=== PATIENT | male | born 1955 | race Caucasian/White ===

== ENCOUNTER → 2017-02-08 | Outpatient (REF) | payer OTHER | LOC: M SFHCPLAZ 11:27 | PROVIDERS: ATTEND Internal Medicine Infectious Disease | DX: Z53.8 Procedure and treatment not carried out for other reasons (principal) ==

== ENCOUNTER → 2017-03-03 | Outpatient (REF) | payer OTHER | LOC: M LAB REF 16:21 | PROVIDERS: ATTEND Internal Medicine | DX: T84.51XD Infection and inflammatory reaction due to internal right hip prosthesis, subsequent encounter (principal); W27 Contact with nonpowered hand tool; X58.XXXD Exposure to other specified factors, subsequent encounter; Y92.9 Unspecified place or not applicable; Y93.9 Activity, unspecified; Y99.9 Unspecified external cause status ==

== ENCOUNTER → 2017-04-22 | Outpatient (REF) | payer OTHER | LOC: M LAB REF 09:09 | PROVIDERS: ATTEND Physician Assistant | DX: Z11.9 Encounter for screening for infectious and parasitic diseases, unspecified (principal) ==

== ENCOUNTER → 2017-10-13 | Outpatient (REF) | payer OTHER | LOC: M LAB REF 16:29 | PROVIDERS: ATTEND Internal Medicine | DX: T84.52XA Infection and inflammatory reaction due to internal left hip prosthesis, initial encounter (principal); Y92.9 Unspecified place or not applicable; Y93.9 Activity, unspecified ==

== ENCOUNTER → 2017-10-18 | Outpatient (CLI) | payer OTHER ==
--- NOTE | 2017-10-19 01:51 | REP ---
Clinical: Pain with history of osteoarthritis. Technique: Good view of the pelvis with neutral and frog lateral views of the right hip. Findings: The patient is status post bilateral hip replacement. Dystrophic calcifications are identified seemingly bridging the left hip. Enthesopathy along the pelvic rim along with cortical irregularity of the residual proximal right femur noted. No periarticular calcifications involving the right hip identified. No acute fracture dislocation. Impression: Degenerative changes as noted above. Signed by Jeff Milligan MD 10/18/2017 10:43 P
== END ==
LOC: M WUC 13:52
DX: M19.90 Unspecified osteoarthritis, unspecified site (principal)

== ENCOUNTER → 2018-04-11 | Outpatient (REF) | payer OTHER ==
[2018-04-11 18:24] LABS: BASO # 0.1 10^3/uL (0.0-0.2); BASO % 0.6 % (0.0-1.0); EOS # 0.3 10^3/uL (0.0-0.50); HEMATOCRIT 37.8 % (42.0-52.0); IMMATURE GRANULOCYTE % 0.4 % (0-3.0); LYMPH # 1.9 10^3/uL (1.5-4.5); LYMPH % 23.6 % (24.0-44.0); MEAN CORPUSCULAR HEMOGLOBIN 29.1 pg (27.0-33.0); MEAN CORPUSCULAR HGB CONC 31.7 g/dl (32.0-36.5); MEAN CORPUSCULAR VOLUME 91.5 fl (80.0-96.0); MONO # 0.7 10^3/uL (0.0-0.8); MONO % 8.7 % (0.0-5.0); NEUTROPHILS % 62.7 % (36.0-66.0); RED BLOOD COUNT 4.13 10^6/uL (4.30-6.10); RED CELL DISTRIBUTION WIDTH 14.3 % (11.5-14.5)
[2018-04-11 18:41] LABS: PLTBLUE- EDTA FREE CALC 210 K/mm3 (172-450)
[2018-04-11 18:42] LABS: PLTBLUE- EDTA FREE MACHINE 191 10^3/uL (172-450); POS COUNT POS FLAG
== END ==
LOC: M LAB REF 16:56
DX: T84.52XA Infection and inflammatory reaction due to internal left hip prosthesis, initial encounter (principal); W18.30XA Fall on same level, unspecified, initial encounter; Y92.009 Unspecified place in unspecified non-institutional (private) residence as the place of occurrence of the external cause

== ENCOUNTER → 2020-05-16 | Outpatient (CLI) | payer MEDICARE, OTHER ==
[~2020-05-16] VITALS: Ht 175.3 cm; Wt 129.3 kg
[2020-05-16] VITALS (9 sets, daily range): BP systolic 115–158; BP diastolic 53–71
[~2020-05-16] MED LIST: ACETAMINOPHEN TAB 650MG DOSE (2X325MG) PO ONE; AMOX875T PO; ASPI81TA86 PO; BACT800T5 PO; CELE1CAP9 PO; LOSA100T50 PO; METF-839 PO; METF500T13 PO; PRAV40TA2 PO; PRED10TA2 PO; SULF1TAB93 PO; dexameTHASONE 20MG/5ML VIAL (J1100 PER 1MG) IV ONE; diphenhydrAMINE 50MG/ML VIAL (J1200) IV ONE; riTUXimab (INITIAL INFUSION) IV ONE
== END ==
LOC: M INFU 07:07
PROVIDERS: ATTEND Internal Medicine Medical Oncology
DX: L12.1 Cicatricial pemphigoid (principal); H10.89 Other conjunctivitis; D89.89 Other specified disorders involving the immune mechanism, not elsewhere classified
CPT/HCPCS: 96375; 96413; 96415; J1100; J1200; J9312

== ENCOUNTER → 2020-05-23 | Outpatient (CLI) | payer MEDICARE, OTHER ==
[~2020-05-23] VITALS: Ht 177.8 cm; Wt 129.3 kg
[~2020-05-23] MED LIST changes: +NS IV ONE; +RITUXIMAB IV ONE; -riTUXimab (INITIAL INFUSION) IV ONE
[2020-05-23 07:35] VITALS: BP 139/61
[2020-05-23 09:20] VITALS: BP 124/56
[2020-05-23 09:50] VITALS: BP 144/63
[2020-05-23 10:20] VITALS: BP 145/65
== END ==
LOC: M INFU 07:24
PROVIDERS: ATTEND Internal Medicine Medical Oncology
DX: L12.1 Cicatricial pemphigoid (principal)
CPT/HCPCS: 96375; 96413; 96415; J1100; J1200; J9312

== ENCOUNTER 2020-05-30 07:30 | Outpatient (CLI) | payer MEDICARE, OTHER ==
[~2020-05-30 07:30] MED LIST changes: -ACETAMINOPHEN TAB 650MG DOSE (2X325MG) PO ONE; -NS IV ONE; -RITUXIMAB IV ONE; -dexameTHASONE 20MG/5ML VIAL (J1100 PER 1MG) IV ONE; -diphenhydrAMINE 50MG/ML VIAL (J1200) IV ONE; +riTUXimab 500MG 50ML VIAL (RITUXAN) (J9312 PER 10MG) ONE
[2020-05-30] MEDS ORDERED: dexameTHASONE 20MG/5ML VIAL (J1100 PER 1MG) ONE (07:45)
[2020-05-30] MEDS ORDERED: diphenhydrAMINE 50MG/ML VIAL (J1200) As Ordered ONE (07:45)
[2020-05-30] MEDS ORDERED: diphenhydrAMINE 50MG/ML VIAL (J1200) ONE (07:45)
[2020-05-30] MEDS ORDERED: dexameTHASONE 20MG/5ML VIAL (J1100 PER 1MG) As Ordered ONE (07:46)
== END 2020-05-30 12:30 | disposition home or self-care (01) ==
LOC: M INFU 07:30
PROVIDERS: ATTEND Internal Medicine Medical Oncology
DX: L12.1 Cicatricial pemphigoid (principal)
CPT/HCPCS: 96375; 96413; 96415; J1100; J1200; J9312

== ENCOUNTER 2020-06-06 07:30 | Outpatient (CLI) | payer MEDICARE, OTHER ==
[2020-06-06] MEDS ORDERED: ACETAMINOPHEN TAB 650MG DOSE (2X325MG) As Ordered ONE (07:45)
[2020-06-06] MEDS ORDERED: dexameTHASONE 20MG/5ML VIAL (J1100 PER 1MG) As Ordered ONE (07:45)
[2020-06-06] MEDS ORDERED: diphenhydrAMINE 50MG/ML VIAL (J1200) As Ordered ONE (07:45)
== END 2020-06-06 12:40 | disposition home or self-care (01) ==
LOC: M INFU 07:30
PROVIDERS: ATTEND Internal Medicine Medical Oncology
DX: L12.1 Cicatricial pemphigoid (principal); H10.89 Other conjunctivitis; D89.89 Other specified disorders involving the immune mechanism, not elsewhere classified
CPT/HCPCS: 96375; 96413; 96415; J1100; J1200; J9312

== ENCOUNTER 2020-06-13 07:30 | Outpatient (CLI) | payer MEDICARE, OTHER ==
[~2020-06-13 07:30] MED LIST changes: -riTUXimab 500MG 50ML VIAL (RITUXAN) (J9312 PER 10MG) ONE
[2020-06-13] MEDS ORDERED: ACETAMINOPHEN TAB 650MG DOSE (2X325MG) ONE (07:40)
[2020-06-13] MEDS ORDERED: riTUXimab 500MG 50ML VIAL (RITUXAN) (J9312 PER 10MG) ONE (07:40)
[2020-06-13] MEDS ORDERED: dexameTHASONE 20MG/5ML VIAL (J1100 PER 1MG) ONE (07:40)
== END 2020-06-13 11:30 | disposition home or self-care (01) ==
LOC: M INFU 07:30
PROVIDERS: ATTEND Internal Medicine Medical Oncology
DX: L12.1 Cicatricial pemphigoid (principal); H10.89 Other conjunctivitis; D89.89 Other specified disorders involving the immune mechanism, not elsewhere classified
CPT/HCPCS: 96375; 96413; 96415; J1100; J9312

== ENCOUNTER 2020-06-20 07:14 | Outpatient (CLI) | payer MEDICARE, OTHER ==
[~2020-06-20] VITALS: Ht 175.3 cm; Wt 129.3 kg
[2020-06-20 07:20] VITALS: BP 173/84
[2020-06-20] MEDS ORDERED: dexameTHASONE 20MG/5ML VIAL (J1100 PER 1MG) IV ONE (07:30)
[2020-06-20] MEDS ORDERED: ACETAMINOPHEN 325 MG TAB PO ONE (07:30)
[2020-06-20] MEDS ORDERED: diphenhydrAMINE 50MG/ML VIAL (J1200) IV ONE (07:30)
[2020-06-20] MEDS ORDERED: riTUXimab (SUBSEQUENT INFUSIONS) IV ONE ×2 (07:45)
[2020-06-20 12:45] VITALS: BP 144/85
== END 2020-06-20 12:45 | disposition home or self-care (01) ==
LOC: M INFU 07:14
PROVIDERS: ATTEND Internal Medicine Medical Oncology
DX: L12.1 Cicatricial pemphigoid (principal)
CPT/HCPCS: 96375; 96413; 96415; J1100; J9312

== ENCOUNTER 2020-06-27 07:19 | Outpatient (CLI) | payer MEDICARE, OTHER ==
[2020-06-27] VITALS (7 sets, daily range): BP systolic 118–150; BP diastolic 56–73
[~2020-06-27] VITALS: Ht 175.3 cm; Wt 129.3 kg
[2020-06-27] MEDS ORDERED: NS IV ONE (07:30)
[2020-06-27] MEDS ORDERED: diphenhydrAMINE 50MG/ML VIAL (J1200) IV ONE (07:30)
[2020-06-27] MEDS ORDERED: dexameTHASONE 20MG/5ML VIAL (J1100 PER 1MG) IV ONE (07:30)
[2020-06-27] MEDS ORDERED: ACETAMINOPHEN TAB 650MG DOSE (2X325MG) PO ONE (07:30)
[2020-06-27] MEDS ORDERED: RITUXIMAB IV ONE (07:30)
== END 2020-06-27 12:00 | disposition home or self-care (01) ==
LOC: M INFU 07:19
PROVIDERS: ATTEND Internal Medicine Medical Oncology
DX: L12.1 Cicatricial pemphigoid (principal)
CPT/HCPCS: 96375; 96413; 96415; J1100; J9312

== ENCOUNTER 2020-07-04 07:12 | Outpatient (CLI) | payer MEDICARE, OTHER ==
[2020-07-04] VITALS (7 sets, daily range): BP systolic 148–174; BP diastolic 68–81
[~2020-07-04] VITALS: Ht 175.3 cm; Wt 129.3 kg
[2020-07-04] MEDS ORDERED: dexameTHASONE 20MG/5ML VIAL (J1100 PER 1MG) IV ONE (07:30)
[2020-07-04] MEDS ORDERED: NS IV ONE (07:30)
[2020-07-04] MEDS ORDERED: diphenhydrAMINE 50MG/ML VIAL (J1200) IV ONE (07:30)
[2020-07-04] MEDS ORDERED: ACETAMINOPHEN TAB 650MG DOSE (2X325MG) PO ONE (07:30)
[2020-07-04] MEDS ORDERED: RITUXIMAB IV ONE (07:30)
== END 2020-07-04 11:30 | disposition home or self-care (01) ==
LOC: M INFU 07:12
PROVIDERS: ATTEND Internal Medicine Medical Oncology
DX: L12.1 Cicatricial pemphigoid (principal)
CPT/HCPCS: 96375; 96413; 96415; J1100; J9312

== ENCOUNTER 2020-08-01 07:19 | Outpatient (CLI) | payer MEDICARE, OTHER ==
[~2020-08-01] VITALS: Ht 167.6 cm; Wt 129.0 kg
[2020-08-01] VITALS (8 sets, daily range): BP systolic 117–179; BP diastolic 57–79
[2020-08-01] MEDS ORDERED: diphenhydrAMINE 50MG/ML VIAL (J1200) IV ONE (07:30)
[2020-08-01] MEDS ORDERED: riTUXimab (SUBSEQUENT INFUSIONS) IV ONE ×2 (07:30)
[2020-08-01] MEDS ORDERED: dexameTHASONE 20MG/5ML VIAL (J1100 PER 1MG) IV ONE (07:30)
[2020-08-01] MEDS ORDERED: ACETAMINOPHEN TAB 650MG DOSE (2X325MG) PO ONE (07:30)
== END 2020-08-01 11:40 | disposition home or self-care (01) ==
LOC: M INFU 07:19
PROVIDERS: ATTEND Internal Medicine Medical Oncology
DX: L12.1 Cicatricial pemphigoid (principal)
CPT/HCPCS: 96375; 96413; 96415; J1100; J9312

== ENCOUNTER 2020-09-05 06:54 | Outpatient (CLI) | payer MEDICARE, OTHER ==
[~2020-09-05] VITALS: Ht 167.6 cm; Wt 129.3 kg
[2020-09-05] MEDS ORDERED: ACETAMINOPHEN TAB 650MG DOSE (2X325MG) PO ONE (07:00)
[2020-09-05] MEDS ORDERED: diphenhydrAMINE 50MG/ML VIAL (J1200) IV ONE (07:00)
[2020-09-05] MEDS ORDERED: RITUXIMAB IV ONE (07:00)
[2020-09-05] MEDS ORDERED: dexameTHASONE 20MG/5ML VIAL (J1100 PER 1MG) IV ONE (07:00)
[2020-09-05] MEDS ORDERED: NS IV ONE (07:00)
[2020-09-05 07:58] VITALS: BP 171/78
[2020-09-05 08:30] VITALS: BP 174/82
[2020-09-05 09:00] VITALS: BP 176/71
[2020-09-05 09:59] VITALS: BP 172/74
[2020-09-05 10:47] VITALS: BP 168/80
== END 2020-09-05 10:45 | disposition home or self-care (01) ==
LOC: M INFU 06:54
PROVIDERS: ATTEND Internal Medicine Medical Oncology
DX: L12.1 Cicatricial pemphigoid (principal); Z88.1 Allergy status to other antibiotic agents; Z79.899 Other long term (current) drug therapy
CPT/HCPCS: 96375; 96413; 96415; J1100; J9312

== ENCOUNTER 2020-09-23 07:02 | Outpatient (CLI) | payer MEDICARE, OTHER ==
[~2020-09-23] VITALS: Ht 167.6 cm; Wt 129.3 kg
[2020-09-23] MEDS ORDERED: IMMUNE GLOBULIN 10% 20 GM in IV 1 EA IV ONE (07:15)
[2020-09-23] MEDS ORDERED: ACETAMINOPHEN TAB 650MG DOSE (2X325MG) PO ONE (07:15)
[2020-09-23] MEDS ORDERED: IMMUNE GLOBULIN 10% 40 GM in IV 1 EA IV ONE (07:15)
[2020-09-23 07:24] VITALS: BP 183/84
[2020-09-23 08:00] VITALS: BP 174/74
[2020-09-23 09:01] VITALS: BP 169/70
[2020-09-23 09:30] VITALS: BP 142/68
[2020-09-23 10:42] VITALS: BP 164/72
== END 2020-09-23 10:40 | disposition home or self-care (01) ==
LOC: M INFU 07:02
PROVIDERS: ATTEND Internal Medicine Infectious Disease
DX: L12.1 Cicatricial pemphigoid (principal); Z88.1 Allergy status to other antibiotic agents; Z88.8 Allergy status to other drugs, medicaments and biological substances
CPT/HCPCS: 96365; 96366; J1459

== ENCOUNTER 2020-09-24 06:57 | Outpatient (CLI) | payer MEDICARE, OTHER ==
[~2020-09-24] VITALS: Ht 167.6 cm; Wt 129.3 kg
[2020-09-24] MEDS ORDERED: IMMUNE GLOBULIN 10% 20 GM in IV 1 EA IV ONE (07:15)
[2020-09-24] MEDS ORDERED: ACETAMINOPHEN TAB 650MG DOSE (2X325MG) PO ONE (07:15)
[2020-09-24] MEDS ORDERED: IMMUNE GLOBULIN 10% 40 GM in IV 1 EA IV ONE (07:15)
[2020-09-24 07:23] VITALS: BP 165/81
[2020-09-24 07:45] VITALS: BP 168/82
[2020-09-24 08:15] VITALS: BP 154/72
[2020-09-24 08:45] VITALS: BP 154/72
[2020-09-24 10:30] VITALS: BP 178/82
== END 2020-09-24 10:30 | disposition home or self-care (01) ==
LOC: M INFU 06:57
PROVIDERS: ATTEND Internal Medicine Infectious Disease
DX: L12.1 Cicatricial pemphigoid (principal); Z88.1 Allergy status to other antibiotic agents; Z88.8 Allergy status to other drugs, medicaments and biological substances
CPT/HCPCS: 96365; 96366; J1459

== ENCOUNTER 2020-09-25 06:55 | Outpatient (CLI) | payer MEDICARE, OTHER ==
[~2020-09-25] VITALS: Ht 167.6 cm; Wt 129.3 kg
[2020-09-25 06:59] VITALS: BP 150/74
[2020-09-25] MEDS ORDERED: IMMUNE GLOBULIN 10% 40 GM in IV 1 EA IV ONE (07:15)
[2020-09-25] MEDS ORDERED: ACETAMINOPHEN TAB 650MG DOSE (2X325MG) PO ONE (07:15)
[2020-09-25] MEDS ORDERED: IMMUNE GLOBULIN 10% 20 GM in IV 1 EA IV ONE (07:15)
[2020-09-25 07:55] VITALS: BP 147/63
[2020-09-25 08:25] VITALS: BP 144/66
[2020-09-25 08:55] VITALS: BP 141/63
[2020-09-25 10:00] VITALS: BP 160/69
[2020-09-25 10:30] VITALS: BP 142/70
== END 2020-09-25 10:40 | disposition home or self-care (01) ==
LOC: M INFU 06:55
PROVIDERS: ATTEND Internal Medicine Infectious Disease
DX: L12.1 Cicatricial pemphigoid (principal); Z88.1 Allergy status to other antibiotic agents; Z88.8 Allergy status to other drugs, medicaments and biological substances
CPT/HCPCS: 96365; 96366; J1459

== ENCOUNTER 2020-10-03 06:51 | Outpatient (CLI) | payer MEDICARE, OTHER ==
[~2020-10-03] VITALS: Ht 172.7 cm; Wt 129.3 kg
[2020-10-03 06:58] VITALS: BP 169/77
[2020-10-03] MEDS ORDERED: ACETAMINOPHEN TAB 650MG DOSE (2X325MG) PO ONE (07:00)
[2020-10-03] MEDS ORDERED: riTUXimab (SUBSEQUENT INFUSIONS) IV ONE ×2 (07:00)
[2020-10-03] MEDS ORDERED: dexameTHASONE 20MG/5ML VIAL (J1100 PER 1MG) IV ONE (07:00)
[2020-10-03] MEDS ORDERED: diphenhydrAMINE 50MG/ML VIAL (J1200) IV ONE (07:00)
[2020-10-03 08:15] VITALS: BP 171/76
[2020-10-03 08:47] VITALS: BP 168/75
[2020-10-03 09:15] VITALS: BP 172/71
[2020-10-03 10:17] VITALS: BP 164/66
[2020-10-03 11:02] VITALS: BP 177/75
== END 2020-10-03 11:00 | disposition home or self-care (01) ==
LOC: M INFU 06:51
PROVIDERS: ATTEND Internal Medicine Medical Oncology
DX: L12.1 Cicatricial pemphigoid (principal); Z88.1 Allergy status to other antibiotic agents; Z88.8 Allergy status to other drugs, medicaments and biological substances
CPT/HCPCS: 96413; 96415; J9312

== ENCOUNTER 2020-11-04 07:02 | Outpatient (CLI) | payer MEDICARE, OTHER ==
[~2020-11-04] VITALS: Ht 167.6 cm; Wt 129.3 kg
[~2020-11-04 07:02] MED LIST changes: +ACETAMINOPHEN TAB 650MG DOSE (2X325MG) PO ONE; +IMMUNE GLOBULIN 10% 20 GM in IV 1 EA IV ONE; +IMMUNE GLOBULIN 10% 40 GM in IV 1 EA IV ONE
[2020-11-04 07:05] VITALS: BP 142/71
[2020-11-04 07:55] VITALS: BP 138/64
[2020-11-04 08:25] VITALS: BP 136/63
[2020-11-04 08:55] VITALS: BP 156/70
[2020-11-04 09:55] VITALS: BP 158/70
[2020-11-04 10:30] VITALS: BP 148/78
== END 2020-11-04 10:35 | disposition home or self-care (01) ==
LOC: M INFU 07:02
PROVIDERS: ATTEND Internal Medicine Infectious Disease
DX: L12.1 Cicatricial pemphigoid (principal); Z88.1 Allergy status to other antibiotic agents; Z88.8 Allergy status to other drugs, medicaments and biological substances
CPT/HCPCS: 96365; 96366; J1459

== ENCOUNTER 2020-11-05 06:43 | Outpatient (CLI) | payer MEDICARE, OTHER ==
[~2020-11-05] VITALS: Ht 167.6 cm; Wt 129.0 kg
[~2020-11-05 06:43] MED LIST changes: -ACETAMINOPHEN TAB 650MG DOSE (2X325MG) PO ONE; -IMMUNE GLOBULIN 10% 20 GM in IV 1 EA IV ONE; -IMMUNE GLOBULIN 10% 40 GM in IV 1 EA IV ONE
[2020-11-05] MEDS ORDERED: IMMUNE GLOBULIN 10% 40 GM in IV 1 EA IV ONE (07:00)
[2020-11-05] MEDS ORDERED: IMMUNE GLOBULIN 10% 20 GM in IV 1 EA IV ONE (07:00)
[2020-11-05] MEDS ORDERED: ACETAMINOPHEN TAB 650MG DOSE (2X325MG) PO ONE (07:00)
[2020-11-05 07:05] VITALS: BP 151/67
[2020-11-05 07:45] VITALS: BP 162/60
[2020-11-05 08:15] VITALS: BP 144/74
[2020-11-05 08:45] VITALS: BP 149/71
[2020-11-05 09:45] VITALS: BP 151/68
[2020-11-05 10:30] VITALS: BP 141/71
== END 2020-11-05 10:30 | disposition home or self-care (01) ==
LOC: M INFU 06:43
PROVIDERS: ATTEND Internal Medicine Infectious Disease
DX: L12.1 Cicatricial pemphigoid (principal); Z88.1 Allergy status to other antibiotic agents; Z88.8 Allergy status to other drugs, medicaments and biological substances
CPT/HCPCS: 96365; 96366; J1459

== ENCOUNTER 2020-11-06 06:54 | Outpatient (CLI) | payer MEDICARE, OTHER ==
[~2020-11-06] VITALS: Ht 167.6 cm; Wt 129.3 kg
[2020-11-06 07:00] VITALS: BP 156/70
[2020-11-06] MEDS ORDERED: ACETAMINOPHEN TAB 650MG DOSE (2X325MG) PO ONE (07:00)
[2020-11-06] MEDS ORDERED: IMMUNE GLOBULIN 10% 20 GM in IV 1 EA IV ONE (07:00)
[2020-11-06] MEDS ORDERED: IMMUNE GLOBULIN 10% 40 GM in IV 1 EA IV ONE (07:00)
[2020-11-06 07:40] VITALS: BP 148/68
[2020-11-06 08:10] VITALS: BP 155/72
[2020-11-06 08:40] VITALS: BP 144/68
[2020-11-06 09:40] VITALS: BP 150/68
[2020-11-06 10:25] VITALS: BP 148/82
== END 2020-11-06 16:23 | disposition home or self-care (01) ==
LOC: M INFU 06:54
PROVIDERS: ATTEND Internal Medicine Infectious Disease
DX: L12.1 Cicatricial pemphigoid (principal); Z88.1 Allergy status to other antibiotic agents; Z88.8 Allergy status to other drugs, medicaments and biological substances
CPT/HCPCS: 96365; 96366; J1459

== ENCOUNTER 2020-11-07 07:16 | Outpatient (CLI) | payer MEDICARE, OTHER ==
[~2020-11-07] VITALS: Ht 175 cm; Wt 129.3 kg
[~2020-11-07 07:16] MED LIST changes: +ACETAMINOPHEN TAB 650MG DOSE (2X325MG) PO ONE; +dexameTHASONE 20MG/5ML VIAL (J1100 PER 1MG) IV ONE; +diphenhydrAMINE 50MG/ML VIAL (J1200) IV ONE
[2020-11-07 07:30] VITALS: BP 155/72
[2020-11-07] MEDS ORDERED: NS IV ONE (07:30)
[2020-11-07] MEDS ORDERED: RITUXIMAB IV ONE (07:30)
[2020-11-07 08:00] VITALS: BP 155/72
[2020-11-07 08:31] VITALS: BP 178/84
[2020-11-07 09:00] VITALS: BP 165/72
[2020-11-07 09:30] VITALS: BP 156/67
[2020-11-07 11:15] VITALS: BP 170/79
== END 2020-11-07 11:15 | disposition home or self-care (01) ==
LOC: M INFU 07:16
PROVIDERS: ATTEND Internal Medicine Medical Oncology
DX: L12.1 Cicatricial pemphigoid (principal); Z88.1 Allergy status to other antibiotic agents; Z88.8 Allergy status to other drugs, medicaments and biological substances
CPT/HCPCS: 96413; 96415; J9312

== ENCOUNTER 2020-12-05 07:32 | Outpatient (CLI) | payer MEDICARE, OTHER ==
[~2020-12-05] VITALS: Ht 172.7 cm; Wt 135.0 kg
[~2020-12-05 07:32] MED LIST changes: +ALBUTEROL SULFATE 2.5 MG/0.5 ML INH NEB SOLN INH PRN; +ASPI81CH33 PO; +EPINEPHrine INJ 1 MG/ML 1ML AMP IM PRN; +FAMOTIDINE IV BAG 20 MG in IV 1 EA IV PRN; +diphenhydrAMINE 50MG/ML VIAL (J1200) IV PRN; +methylPREDNISolone 125MG 2ML VIAL IV PRN; +riTUXimab (SUBSEQUENT INFUSIONS) IV ONE
[2020-12-05 07:49] VITALS: BP 172/86
[2020-12-05 08:30] VITALS: BP 172/86
[2020-12-05 09:00] VITALS: BP 142/67
[2020-12-05 09:29] VITALS: BP 156/79
[2020-12-05 10:00] VITALS: BP 134/60
[2020-12-05 11:45] VITALS: BP 168/82
== END 2020-12-05 11:45 | disposition home or self-care (01) ==
LOC: M INFU 07:32
PROVIDERS: ATTEND Internal Medicine Medical Oncology
DX: L12.1 Cicatricial pemphigoid (principal); Z88.1 Allergy status to other antibiotic agents
CPT/HCPCS: 96413; 96415; J9312

== ENCOUNTER 2020-12-09 06:53 | Outpatient (CLI) | payer MEDICARE, OTHER ==
[~2020-12-09] VITALS: Ht 175.3 cm; Wt 135.0 kg
[~2020-12-09 06:53] MED LIST changes: -ACETAMINOPHEN TAB 650MG DOSE (2X325MG) PO ONE; -ALBUTEROL SULFATE 2.5 MG/0.5 ML INH NEB SOLN INH PRN; -EPINEPHrine INJ 1 MG/ML 1ML AMP IM PRN; -FAMOTIDINE IV BAG 20 MG in IV 1 EA IV PRN; +IMMUNE GLOBULIN 10% 40 GM in IV 1 EA IV ONE; -dexameTHASONE 20MG/5ML VIAL (J1100 PER 1MG) IV ONE; -diphenhydrAMINE 50MG/ML VIAL (J1200) IV ONE; -diphenhydrAMINE 50MG/ML VIAL (J1200) IV PRN; -methylPREDNISolone 125MG 2ML VIAL IV PRN; -riTUXimab (SUBSEQUENT INFUSIONS) IV ONE
[2020-12-09] MEDS ORDERED: IMMUNE GLOBULIN 10% 10 GM in IV 1 EA IV ONE (07:00)
[2020-12-09] MEDS ORDERED: diphenhydrAMINE 50MG/ML VIAL (J1200) IV ONE (07:00)
[2020-12-09] MEDS ORDERED: IMMUNE GLOBULIN 10% 40 GM in IV 1 EA IV ONE (07:00)
[2020-12-09] MEDS ORDERED: dexameTHASONE 10MG/1ML VIAL PRES.FREE (J1100 PER 1MG) IV ONE (07:00)
[2020-12-09 07:30] VITALS: BP 141/65
[2020-12-09 08:00] VITALS: BP 164/75
[2020-12-09 08:30] VITALS: BP 124/58
[2020-12-09 09:00] VITALS: BP 138/62
[2020-12-09 10:00] VITALS: BP 156/74
[2020-12-09 11:40] VITALS: BP 155/79
== END 2020-12-09 18:21 | disposition home or self-care (01) ==
LOC: M INFU 06:53
PROVIDERS: ATTEND Internal Medicine Infectious Disease
DX: L12.1 Cicatricial pemphigoid (principal); Z88.1 Allergy status to other antibiotic agents
CPT/HCPCS: 96365; 96366; J1459

== ENCOUNTER 2020-12-10 06:47 | Outpatient (CLI) | payer MEDICARE, OTHER ==
[~2020-12-10] VITALS: Ht 175.3 cm; Wt 135.0 kg
[2020-12-10] VITALS (7 sets, daily range): BP systolic 154–176; BP diastolic 67–85
[~2020-12-10 06:47] MED LIST changes: -IMMUNE GLOBULIN 10% 40 GM in IV 1 EA IV ONE
[2020-12-10] MEDS ORDERED: dexameTHASONE 20MG/5ML VIAL (J1100 PER 1MG) IV ONE (07:00)
[2020-12-10] MEDS ORDERED: IMMUNE GLOBULIN 10% 80 GM in IV 1 EA IV ONE (07:00)
[2020-12-10] MEDS ORDERED: diphenhydrAMINE 50MG/ML VIAL (J1200) IV ONE (07:00)
[2020-12-10] MEDS ORDERED: IMMUNE GLOBULIN 10% 10 GM in IV 1 EA IV ONE (07:00)
== END 2020-12-10 11:00 | disposition home or self-care (01) ==
LOC: M INFU 06:47
PROVIDERS: ATTEND Internal Medicine Infectious Disease
DX: L12.1 Cicatricial pemphigoid (principal); Z88.1 Allergy status to other antibiotic agents
CPT/HCPCS: 96365; 96366; J1459

== ENCOUNTER 2021-01-13 07:01 | Outpatient (CLI) | payer MEDICARE, OTHER ==
[~2021-01-13] VITALS: Ht 175 cm; Wt 135.0 kg
[~2021-01-13 07:01] MED LIST changes: +ACETAMINOPHEN TAB 650MG DOSE (2X325MG) PO ONE; +ALBUTEROL SULFATE 2.5 MG/0.5 ML INH NEB SOLN INH PRN; +EPINEPHrine INJ 1 MG/ML 1ML AMP IM PRN; +FAMOTIDINE IV BAG 20 MG in APPROPRIATE DILUENT 1 ML IV PRN; +NS 1,000 ML IV SCH; +dexameTHASONE 20MG/5ML VIAL (J1100 PER 1MG) IV ONE; +diphenhydrAMINE 50MG/ML VIAL (J1200) IV ONE; +diphenhydrAMINE 50MG/ML VIAL (J1200) IV PRN; +methylPREDNISolone 125MG 2ML VIAL IV PRN; +riTUXimab (SUBSEQUENT INFUSIONS) IV ONE
[2021-01-13 07:45] VITALS: BP 210/88
[2021-01-13 08:15] VITALS: BP 137/64
[2021-01-13 08:45] VITALS: BP 127/57
[2021-01-13 09:15] VITALS: BP 124/61
[2021-01-13 11:00] VITALS: BP 181/84
== END 2021-01-13 11:00 | disposition home or self-care (01) ==
LOC: M INFU 07:01
PROVIDERS: ATTEND Internal Medicine Medical Oncology
DX: L12.1 Cicatricial pemphigoid (principal); Z88.8 Allergy status to other drugs, medicaments and biological substances; Z88.1 Allergy status to other antibiotic agents
CPT/HCPCS: 96413; 96415; J9312

== ENCOUNTER 2021-01-14 06:45 | Outpatient (CLI) | payer MEDICARE, OTHER ==
[~2021-01-14] VITALS: Ht 175.3 cm; Wt 135.0 kg
[~2021-01-14 06:45] MED LIST changes: -ACETAMINOPHEN TAB 650MG DOSE (2X325MG) PO ONE; -ALBUTEROL SULFATE 2.5 MG/0.5 ML INH NEB SOLN INH PRN; -EPINEPHrine INJ 1 MG/ML 1ML AMP IM PRN; -FAMOTIDINE IV BAG 20 MG in APPROPRIATE DILUENT 1 ML IV PRN; -NS 1,000 ML IV SCH; -dexameTHASONE 20MG/5ML VIAL (J1100 PER 1MG) IV ONE; -diphenhydrAMINE 50MG/ML VIAL (J1200) IV ONE; -diphenhydrAMINE 50MG/ML VIAL (J1200) IV PRN; -methylPREDNISolone 125MG 2ML VIAL IV PRN; -riTUXimab (SUBSEQUENT INFUSIONS) IV ONE
[2021-01-14] MEDS ORDERED: dexameTHASONE 20MG/5ML VIAL (J1100 PER 1MG) IV ONE (07:00)
[2021-01-14] MEDS ORDERED: IMMUNE GLOBULIN 10% 80 GM in IV 1 EA IV ONE (07:00)
[2021-01-14] MEDS ORDERED: IMMUNE GLOBULIN 10% 10 GM in IV 1 EA IV ONE (07:00)
[2021-01-14] MEDS ORDERED: diphenhydrAMINE 50MG/ML VIAL (J1200) IV ONE (07:00)
[2021-01-14 07:02] VITALS: BP 124/58
[2021-01-14 07:47] VITALS: BP 140/59
[2021-01-14 08:47] VITALS: BP 135/64
[2021-01-14 09:43] VITALS: BP 141/63
[2021-01-14 11:24] VITALS: BP 143/93
== END 2021-01-14 11:25 | disposition home or self-care (01) ==
LOC: M INFU 06:45
PROVIDERS: ATTEND Internal Medicine Infectious Disease
DX: L12.1 Cicatricial pemphigoid (principal); Z88.1 Allergy status to other antibiotic agents; Z88.8 Allergy status to other drugs, medicaments and biological substances
CPT/HCPCS: 96365; 96366; J1459

== ENCOUNTER 2021-01-15 06:51 | Outpatient (CLI) | payer MEDICARE, OTHER ==
[~2021-01-15] VITALS: Ht 175.3 cm; Wt 135.0 kg
[2021-01-15 07:00] VITALS: BP 146/85
[2021-01-15] MEDS ORDERED: IMMUNE GLOBULIN 10% 10 GM in IV 1 EA IV ONE (07:00)
[2021-01-15] MEDS ORDERED: diphenhydrAMINE 50MG/ML VIAL (J1200) IV ONE (07:00)
[2021-01-15] MEDS ORDERED: dexameTHASONE 20MG/5ML VIAL (J1100 PER 1MG) IV ONE (07:00)
[2021-01-15] MEDS ORDERED: IMMUNE GLOBULIN 10% 80 GM in IV 1 EA IV ONE (07:00)
[2021-01-15 07:45] VITALS: BP 144/66
[2021-01-15 08:18] VITALS: BP 142/68
[2021-01-15 08:45] VITALS: BP 131/61
[2021-01-15 09:45] VITALS: BP 148/78
[2021-01-15 11:20] VITALS: BP 150/75
== END 2021-01-15 11:30 | disposition home or self-care (01) ==
LOC: M INFU 06:51
PROVIDERS: ATTEND Internal Medicine Infectious Disease
DX: L12.1 Cicatricial pemphigoid (principal); Z88.1 Allergy status to other antibiotic agents; Z88.8 Allergy status to other drugs, medicaments and biological substances
CPT/HCPCS: 96365; 96366; J1459

== ENCOUNTER 2021-02-12 06:54 | Outpatient (CLI) | payer MEDICARE, OTHER ==
[~2021-02-12] VITALS: Ht 175 cm; Wt 135.0 kg
[2021-02-12] MEDS ORDERED: NS IV ONE (07:00)
[2021-02-12] MEDS ORDERED: RITUXIMAB IV ONE (07:00)
[2021-02-12] MEDS ORDERED: diphenhydrAMINE 50MG/ML VIAL (J1200) IV ONE (07:00)
[2021-02-12] MEDS ORDERED: dexameTHASONE 20MG/5ML VIAL (J1100 PER 1MG) IV ONE (07:00)
[2021-02-12] MEDS ORDERED: ACETAMINOPHEN TAB 650MG DOSE (2X325MG) PO ONE (07:00)
[2021-02-12 07:09] VITALS: BP 160/70
[2021-02-12 07:24] VITALS: BP 160/70
[2021-02-12] MEDS ORDERED: NS 1,000 ML IV PRN (07:30)
[2021-02-12] MEDS ORDERED: diphenhydrAMINE (50MG/ML) IV IV PRN (07:30)
[2021-02-12] MEDS ORDERED: EPINEPHrine (1MG/ML) IV IM PRN (07:30)
[2021-02-12] MEDS ORDERED: ALBUTEROL SULFATE (2.5MG/0.5ML) NEB INH PRN (07:30)
[2021-02-12] MEDS ORDERED: methylPREDNISolone (125 MG/2 ML) IV IV PRN (07:30)
[2021-02-12] MEDS ORDERED: FAMOTIDINE IV BAG 20 MG IV PRN ×2 (07:30)
[2021-02-12 08:00] VITALS: BP 170/83
[2021-02-12 08:53] VITALS: BP 117/57
[2021-02-12 10:00] VITALS: BP 120/55
[2021-02-12 10:39] VITALS: BP 162/68
== END 2021-02-12 10:40 | disposition home or self-care (01) ==
LOC: M INFU 06:54
PROVIDERS: ATTEND Internal Medicine Medical Oncology
DX: L12.1 Cicatricial pemphigoid (principal); Z88.1 Allergy status to other antibiotic agents; Z88.8 Allergy status to other drugs, medicaments and biological substances
CPT/HCPCS: 96413; 96415; J9312

== ENCOUNTER 2021-02-13 06:47 | Outpatient (CLI) | payer MEDICARE, OTHER ==
[~2021-02-13] VITALS: Ht 172.7 cm; Wt 135.0 kg
[2021-02-13 06:51] VITALS: BP 181/77
[2021-02-13] MEDS ORDERED: IMMUNE GLOBULIN 10% 80 GM in IV 1 EA IV ONE (07:00)
[2021-02-13] MEDS ORDERED: dexameTHASONE 20MG/5ML VIAL (J1100 PER 1MG) IV ONE (07:00)
[2021-02-13] MEDS ORDERED: IMMUNE GLOBULIN 10% 10 GM in IV 1 EA IV ONE (07:00)
[2021-02-13] MEDS ORDERED: diphenhydrAMINE 50MG/ML VIAL (J1200) IV ONE (07:00)
[2021-02-13 07:43] VITALS: BP 168/79
[2021-02-13 08:18] VITALS: BP 170/81
[2021-02-13 09:44] VITALS: BP 168/74
[2021-02-13 11:37] VITALS: BP 152/74
== END 2021-02-13 11:30 | disposition home or self-care (01) ==
LOC: M INFU 06:47
PROVIDERS: ATTEND Internal Medicine Infectious Disease
DX: L12.1 Cicatricial pemphigoid (principal); Z88.1 Allergy status to other antibiotic agents; Z88.8 Allergy status to other drugs, medicaments and biological substances
CPT/HCPCS: 96365; 96366; J1459

== ENCOUNTER 2021-02-14 06:48 | Outpatient (CLI) | payer MEDICARE, OTHER ==
[~2021-02-14] VITALS: Ht 175.3 cm; Wt 135.0 kg
[2021-02-14] VITALS (7 sets, daily range): BP systolic 174–213; BP diastolic 76–94
[2021-02-14] MEDS ORDERED: diphenhydrAMINE 50MG/ML VIAL (J1200) IV ONE (07:00)
[2021-02-14] MEDS ORDERED: IMMUNE GLOBULIN 10% 10 GM in IV 1 EA IV ONE (07:00)
[2021-02-14] MEDS ORDERED: dexameTHASONE 20MG/5ML VIAL (J1100 PER 1MG) IV ONE (07:00)
[2021-02-14] MEDS ORDERED: IMMUNE GLOBULIN 10% 80 GM in IV 1 EA IV ONE (07:00)
== END 2021-02-14 11:30 | disposition home or self-care (01) ==
LOC: M INFU 06:48
PROVIDERS: ATTEND Internal Medicine Infectious Disease
DX: L12.1 Cicatricial pemphigoid (principal); Z88.1 Allergy status to other antibiotic agents; Z88.8 Allergy status to other drugs, medicaments and biological substances
CPT/HCPCS: 96365; 96366; J1459

== ENCOUNTER → 2021-03-13 | Outpatient (REF) | payer MEDICARE, OTHER ==
[~2021-03-13] MED LIST changes: +BACTDSTA PO; -SULF1TAB93 PO
[2021-03-13 14:04] LABS: BASO % 0.3 % (0.0-1.0); EOS # 0.1 10^3/uL (0.0-0.5); EOS % 0.7 % (0.0-3.0); HEMOGLOBIN 13.3 g/dl (13.5-17.5); LYMPH # 0.9 10^3/uL (1.5-5.0); LYMPH % 7.6 % (24.0-44.0); MEAN CORPUSCULAR HEMOGLOBIN 31.2 pg (27.0-33.0); MEAN CORPUSCULAR HGB CONC 32.4 g/dl (32.0-36.5); MEAN CORPUSCULAR VOLUME 96.2 fl (80.0-96.0); MONO # 0.8 10^3/uL (0.0-0.8); MONO % 6.6 % (2.0-8.0); NEUTROPHILS # 9.9 10^3/uL (1.5-8.5); NEUTROPHILS % 84.1 % (36.0-66.0); PLATELET COUNT, AUTOMATED 266 10^3/uL (150-450); RED BLOOD COUNT 4.26 10^6/uL (4.30-6.10); WHITE BLOOD COUNT 11.8 10^3/uL (4.0-10.0)
[2021-03-13 14:25] LABS: ERYTHROCYTE SEDIMENTATION RATE 32 mm/hr (0-20)
[2021-03-13 15:09] LABS: ALBUMIN 3.3 GM/DL (3.2-5.2); BILIRUBIN,TOTAL 0.4 MG/DL (0.2-1.0); C REACTIVE PROTEIN QUANTITATIV 0.3 MG/DL (0.00-0.30); CALCIUM LEVEL 9.9 MG/DL (8.8-10.2); CREATININE FOR GFR 1.37 MG/DL (0.70-1.30); GLOMERULAR FILTRATION RATE 55.2 (>49); POTASSIUM SERUM 4.5 MEQ/L (3.5-5.1); TOTAL 25(OH) VITAMIN D 35.8 NG/ML (30.0-100.0); TOTAL PROTEIN 6.9 GM/DL (6.4-8.2)
== END ==
LOC: M SFHCPLAZ 11:28
PROVIDERS: ATTEND Internal Medicine Infectious Disease
DX: H10.89 Other conjunctivitis (principal); Z79.52 Long term (current) use of systemic steroids
CPT/HCPCS: 36415; 80053; 82306; 85025; 85652; 86140; 86480; G0463

== ENCOUNTER 2021-03-17 06:53 | Outpatient (CLI) | payer MEDICARE, OTHER ==
[~2021-03-17] VITALS: Ht 175.3 cm; Wt 135.0 kg
[~2021-03-17 06:53] MED LIST changes: +ACETAMINOPHEN TAB 650MG DOSE (2X325MG) PO ONE; +ALBUTEROL SULFATE (2.5MG/0.5ML) NEB INH PRN; +EPINEPHrine (1MG/ML) IV IM PRN; +FAMOTIDINE IV BAG 20 MG IV PRN; +NS 1,000 ML IV PRN; +NS IV ONE; +RITUXIMAB IV ONE; +dexameTHASONE 20MG/5ML VIAL (J1100 PER 1MG) IV ONE; +diphenhydrAMINE (50MG/ML) IV IV PRN; +diphenhydrAMINE 50MG/ML VIAL (J1200) IV ONE; +methylPREDNISolone (125 MG/2 ML) IV IV PRN
[2021-03-17 07:45] VITALS: BP 148/71
[2021-03-17 08:15] VITALS: BP 144/70
[2021-03-17 09:15] VITALS: BP 142/68
[2021-03-17 10:59] VITALS: BP 157/74
== END 2021-03-17 10:59 | disposition home or self-care (01) ==
LOC: M INFU 06:53
PROVIDERS: ATTEND Internal Medicine Medical Oncology
DX: L12.1 Cicatricial pemphigoid (principal); Z88.1 Allergy status to other antibiotic agents; Z88.8 Allergy status to other drugs, medicaments and biological substances
CPT/HCPCS: 96413; 96415; J9312

== ENCOUNTER 2021-03-18 06:46 | Outpatient (CLI) | payer MEDICARE, OTHER ==
[~2021-03-18] VITALS: Ht 175.3 cm; Wt 135.0 kg
[~2021-03-18 06:46] MED LIST changes: -ACETAMINOPHEN TAB 650MG DOSE (2X325MG) PO ONE; -ALBUTEROL SULFATE (2.5MG/0.5ML) NEB INH PRN; -EPINEPHrine (1MG/ML) IV IM PRN; -FAMOTIDINE IV BAG 20 MG IV PRN; -NS 1,000 ML IV PRN; -NS IV ONE; -RITUXIMAB IV ONE; -dexameTHASONE 20MG/5ML VIAL (J1100 PER 1MG) IV ONE; -diphenhydrAMINE (50MG/ML) IV IV PRN; -diphenhydrAMINE 50MG/ML VIAL (J1200) IV ONE; -methylPREDNISolone (125 MG/2 ML) IV IV PRN
[2021-03-18] MEDS ORDERED: IMMUNE GLOBULIN 10% 10 GM in IV 1 EA IV ONE (07:00)
[2021-03-18] MEDS ORDERED: dexameTHASONE 20MG/5ML VIAL (J1100 PER 1MG) IV ONE (07:00)
[2021-03-18] MEDS ORDERED: IMMUNE GLOBULIN 10% 80 GM in IV 1 EA IV ONE (07:00)
[2021-03-18] MEDS ORDERED: diphenhydrAMINE 50MG/ML VIAL (J1200) IV ONE (07:00)
[2021-03-18 07:14] VITALS: BP 157/76
[2021-03-18 08:15] VITALS: BP 152/71
[2021-03-18 08:45] VITALS: BP 166/67
[2021-03-18 09:45] VITALS: BP 151/71
[2021-03-18 11:17] VITALS: BP 162/68
== END 2021-03-18 11:15 | disposition home or self-care (01) ==
LOC: M INFU 06:46
PROVIDERS: ATTEND Internal Medicine Infectious Disease
DX: L12.1 Cicatricial pemphigoid (principal); Z88.1 Allergy status to other antibiotic agents; Z88.8 Allergy status to other drugs, medicaments and biological substances
CPT/HCPCS: 96365; 96366; J1459

== ENCOUNTER 2021-03-19 06:51 | Outpatient (CLI) | payer MEDICARE, OTHER ==
[~2021-03-19] VITALS: Ht 175.3 cm; Wt 135.0 kg
[2021-03-19] MEDS ORDERED: diphenhydrAMINE 50MG/ML VIAL (J1200) IV ONE (07:00)
[2021-03-19] MEDS ORDERED: dexameTHASONE 20MG/5ML VIAL (J1100 PER 1MG) IV ONE (07:00)
[2021-03-19 07:10] VITALS: BP 181/86
[2021-03-19] MEDS ORDERED: IMMUNE GLOBULIN 10% 80 GM in IV 1 EA IV ONE (07:30)
[2021-03-19] MEDS ORDERED: IMMUNE GLOBULIN 10% 10 GM in IV 1 EA IV ONE (07:30)
[2021-03-19 07:45] VITALS: BP 178/80
[2021-03-19 08:45] VITALS: BP 187/80
[2021-03-19 10:00] VITALS: BP 184/88
[2021-03-19 11:29] VITALS: BP 182/86
== END 2021-03-19 11:30 | disposition home or self-care (01) ==
LOC: M INFU 06:51
PROVIDERS: ATTEND Internal Medicine Infectious Disease
DX: L12.1 Cicatricial pemphigoid (principal); Z88.1 Allergy status to other antibiotic agents
CPT/HCPCS: 96365; 96366; J1459

== ENCOUNTER 2021-04-05 11:05 | Inpatient (IN) | payer MEDICARE, OTHER ==
[~2021-04-05] VITALS: Ht 177.8 cm; Wt 124.5 kg
[2021-04-05] MEDS ORDERED: methylPREDNISolone 125MG 2ML VIAL IV ONE (11:20)
[2021-04-05 11:27] LABS: VENOUS BASE EXCESS -2.5 (-2.0-2.0); VENOUS HCO3 21.4 MEQ/L (23.0-27.0); VENOUS O2 SATURATION 83.9 % (60.0-80.0); VENOUS PARTIAL PRESSURE CO2 34.4 mmHg (38.0-50.0); VENOUS PARTIAL PRESSURE O2 48.7 mmHg (30.0-50.0); VENOUS PH 7.411 UNITS (7.330-7.430); VENOUS STANDARD HCO3 22.1 MEQ/L; VENOUS TOTAL CO2 22.4 MEQ/L (24.0-28.0)
[2021-04-05] MEDS ORDERED: DORZ2SOL5 OU (11:27)
[2021-04-05] MEDS ORDERED: OFLO3OPSO OU (11:27)
[2021-04-05] MEDS ORDERED: LEVALBUTEROL 1.25 MG/0.5 ML CONCENTRATE NEB INH ONE (11:30)
[2021-04-05 11:31] LABS: BASO % 0.2 % (0.0-1.0); EOS % 0.2 % (0.0-3.0); HEMATOCRIT 39.3 % (42.0-52.0); HEMOGLOBIN 12.8 g/dl (13.5-17.5); LYMPH # 0.9 10^3/uL (1.5-5.0); LYMPH % 6.7 % (24.0-44.0); MEAN CORPUSCULAR HEMOGLOBIN 30.4 pg (27.0-33.0); MEAN CORPUSCULAR HGB CONC 32.6 g/dl (32.0-36.5); MEAN CORPUSCULAR VOLUME 93.3 fl (80.0-96.0); MONO # 0.4 10^3/uL (0.0-0.8); MONO % 3.1 % (2.0-8.0); NEUTROPHILS # 11.3 10^3/uL (1.5-8.5); NEUTROPHILS % 89.2 % (36.0-66.0); PLATELET COUNT, AUTOMATED 316 10^3/uL (150-450); RED BLOOD COUNT 4.21 10^6/uL (4.30-6.10); WHITE BLOOD COUNT 12.7 10^3/uL (4.0-10.0)
--- NOTE | 2021-04-05 11:33 | REP ---
INDICATION: DYSPNEA/COUGH COMPARISON: 11/02/2018 TECHNIQUE: Portable AP view of the chest FINDINGS: Subtle bilateral lower lobe airspace disease cannot be excluded. No effusion. No pneumothorax. Mediastinum and cardiac silhouette are stable and within normal limits for portable technique. Skeletal structures are stable. IMPRESSION: Cannot exclude subtle lower lobe airspace disease. <Electronically signed by Jeff Milligan > 04/05/21 1129
[2021-04-05] MEDS ORDERED: NS 500 ML IV ONE ×2 (12:05→12:20)
[2021-04-05] MEDS ORDERED: LevoFLOXacin IV 750 MG in IV 1 EA IV ONE (12:05)
[2021-04-05 12:07] LABS: ALBUMIN 2.6 GM/DL (3.2-5.2); ALT/SGPT 36 U/L (12-78); BILIRUBIN,DIRECT 0.2 MG/DL (0.0-0.2); BILIRUBIN,TOTAL 0.5 MG/DL (0.2-1.0); BLOOD UREA NITROGEN 27 MG/DL (7-18); CALCIUM LEVEL 9.8 MG/DL (8.8-10.2); CARBON DIOXIDE LEVEL 24 MEQ/L (21-32); CHLORIDE LEVEL 105 MEQ/L (98-107); CK-MB VALUE MASS < 1.0 NG/ML (<3.6); CPK CREATINE PHOSPHOKINASE 37 U/L (39-308); CREATININE FOR GFR 1.43 MG/DL (0.70-1.30); GLOMERULAR FILTRATION RATE 52.5 (>49); GLUCOSE, FASTING 128 MG/DL (70-100); NT-PRO BNP 215 PG/ML (<125); POTASSIUM SERUM 4.3 MEQ/L (3.5-5.1); SODIUM LEVEL 137 MEQ/L (136-145); THYROXINE (T4) 6.6 UG/DL (4.5-12.0); TOTAL PROTEIN 7.4 GM/DL (6.4-8.2); TROPONIN I < 0.02 NG/ML (< 0.10)
[2021-04-05] MEDS ORDERED: ISOVUE-370 76% 100ML VIAL As Ordered ONE (12:29)
[2021-04-05] MEDS ORDERED: PRED20TA PO (12:42)
[2021-04-05] MEDS ORDERED: DEXTROSE 50% 50 ML SYRINGE IV PRN (13:05)
[2021-04-05] MEDS ORDERED: GLUCAGON INJ 1MG VIAL SC PRN (13:05)
[2021-04-05] MEDS ORDERED: GLUCOSE 4GM CHEW TABLET PO PRN (13:05)
--- NOTE | 2021-04-05 13:13 | HPEPDOC ---
General Date of Admission 04/05/21 Date of Service: Apr 05, 2021 Chief Complaint The patient is a 66-year-old male admitted with a reason for visit of Short Of Breath. Source: Patient Exam Limitations: No limitations Timing/Duration: Day(s) History of Present Illness Patient is 66 years old male with past medical history of type 2 diabetes, hypertension, depression, hypercholesterolemia, chronic left hip infection, history of cicatrizing conjunctivitis presented to the hospital with generalized weakness, cough, muscle ache and shortness of breath. Of note patient received 2 doses of Moderna vaccination in December. Patient stated that he developed symptoms around 1 week ago. On Wednesday patient was in urgent care and tested negative for COVID 19. In ER patient was found to have hypoxia with oxygen saturation low 80s, leukocytes count of 12.7, hemoglobin 12.8, lactic acid 2.3, creatinine 1.4, troponin negative. Chest x-ray showed Subtle bilateral lower lobe airspace disease cannot be excluded Home Medications Scheduled Amoxicillin (Amoxicillin) 875 Mg Tablet, 875 MG PO BID, (Reported) Aspirin (Aspirin) 81 Mg Tab.chew, 81 MG PO DAILY, (Reported) Celecoxib (Celecoxib) 200 Mg Capsule, 200 MG PO DAILY, (Reported) Dorzolamide HCl/Timolol Maleat (Dorzolamide-Timolol Eye Drops) 10 Ml Drops, 1 DROP OU BID, (Reported) Losartan Potassium (Losartan Potassium) 100 Mg Tablet, 100 MG PO DAILY, (Reported) Metformin HCl (Metformin HCl) 500 Mg Tablet, 500 MG PO QAM, (Reported) Metformin HCl (Metformin HCl) 500 Mg Tablet, 1,000 MG PO QPM, (Reported) Ofloxacin (Ofloxacin) 0.3% 5ML Drops, 1 DROP OD BID, (Reported) Pravastatin Sodium (Pravastatin Sodium) 40 Mg Tablet, 40 MG PO DAILY, (Reported) Prednisone (Prednisone) 20 Mg Tablet, 40 MG PO DAILY, (Reported) Allergies Coded Allergies: cephalexin (Verified Allergy, Unknown, 05/09/20) tetracycline (Verified Allergy, Unknown, 05/09/20) vancomycin (Verified Allergy, Unknown, 05/09/20) pseudoephedrine (Verified Adverse Reaction, Intermediate, BRADYCARDIA, 05/09/20) Past Medical History Medical History NIDDM HYPERTENSION OSTEOARTHRITIS DEPRESSION HYPERCHOLESTEROLEMIA LEFT HIP INFECTION PEPTOSTREPTOCOCCUS ASPIRATION AT [facility] 09/27/2017 HISTORY OF CICATRIZING CONJUNCTIVITIS Surgical History APPENDECTOMY RT KNEE REPLACEMENT - 2007 LT HIP REPLACEMENT - 2008 TONSILLECTOMY LYMPH NODE RESECTION RIGHT HIP REPLACEMENT-2016 Family History FATHER: , CHF MOTHER: , LEUKEMIA SIBLINGS: ALIVE SON(S): ALIVE DAUGHTER(S): ALIVE 3 BROTHER(S) , 1 SISTER(S) - HEALTHY. 1 SON(S) , 2 DAUGHTER(S) . DENIES FAMILY HX OF MELANOMA OR PANCREATIC CANCER. Social History * Smoker: former Smoker Alcohol: Denies Drugs: denies A-FIB/CHADSVASC A-FIB History Current/History of A-Fib/PAF?: No Current PO Anticoag Therapy: No Review of Systems Constitutional: Reports: Chills, Fever, Malaise Eyes: Denies: Pain ENT: Denies: Head Aches Skin: Denies: Rash, Lesions Pulmonary: Reports: Dyspnea, Cough Cardiovascular: Denies: Chest Pain, Palpitations Gastrointestinal: Denies: Nausea Genitourinary: Denies: Dysuria, Frequency Hematologic: Denies: Bruising Endocrine: Denies: Polydipsia, Polyphagia Musculoskeletal: Denies: Neck Pain Neurological: Denies: Weakness Psych: Reports: Mood Normal Physical Examination General Exam: Positive: Alert, Cooperative Eye Exam: Positive: PERRLA ENT Exam: Positive: Atraumatic Neck Exam: Positive: Supple; Negative: JVD Chest Exam: Positive: Diminished Heart Exam: Positive: Rate Normal, Tachycardic Telemetry: Positive: Sinus Abdomen Exam: Positive: Normal bowel sounds Extremity Exam: Negative: Clubbing, Cyanosis Skin Exam: Positive: Nl turgor and temperature Neuro Exam: Positive: Strength at 5/5 X4 ext Psych Exam: Positive: Mental status NL Vital Signs Vital Signs Date Time Temp Pulse Resp B/P (MAP) Pulse Ox O2 Delivery O2 Flow Rate FiO2 04/05/21 11:51 114 04/05/21 11:32 Nasal Cannula 4.0 04/05/21 11:32 04/05/21 11:16 99.6 04/05/21 11:06 18 86 Laboratory Data Labs 24H Laboratory Tests 2 04/05/21 11:20: Immature Granulocyte % (Auto) 0.6, Neutrophils (%) (Auto) 89.2H, Lymphocytes (%) (Auto) 6.7L, Monocytes (%) (Auto) 3.1, Eosinophils (%) (Auto) 0.2, Basophils (%) (Auto) 0.2, Neutrophils # (Auto) 11.3H, Lymphocytes # (Auto) 0.9L, Monocytes # (Auto) 0.4, Eosinophils # (Auto) 0.0, Basophils # (Auto) 0.0, Nucleated Red Blood Cells % (auto) 0.2H, Blood Gas Bicarbonate Standard 22.1, Venous Blood pH 7.411, Venous Blood Partial Pressure CO2 34.4L, Venous Blood Partial Pressure O2 48.7, Venous Blood Total Carbon Dioxide 22.4L, Venous Blood HCO3 21.4L, Venous Blood Oxygen Saturation 83.9H, Venous Blood Base Excess -2.5L, Anion Gap 8, Glomerular Filtration Rate 52.5, Lactic Acid Level 2.3*H, Calcium Level 9.8, Total Bilirubin 0.5, Direct Bilirubin 0.2, Aspartate Amino Transf (AST/SGOT) 42H, Alanine Aminotransferase (ALT/SGPT) 36, Alkaline Phosphatase 58, Total Creatine Kinase 37L, Creatine Kinase MB < 1.0, Creatine Kinase MB Relative Index 2.70, Troponin I < 0.02, FX-Bke-E-Type Natriuretic Peptide 215H, Total Protein 7.4, Albumin 2.6L, Albumin/Globulin Ratio 0.5, Thyroid Stimulating Hormone (TSH) 3.110, Thyroxine (T4) 6.6 04/05/21 11:37: POC pH (Misc Panel) 7.445, POC Base Excess (Misc Panel) -2.0, POC Saturated Percent O2 (Misc) 92L, POC pO2 (Misc Panel) 61.0L, POC pCO2 (Misc Panel) 32.6L, POC HCO3 (Misc Panel) 22.4, POC Total CO2 (Misc Panel) 23.0 CBC/BMP Laboratory Tests 04/05/21 11:20 Microbiology Microbiology 04/05/21 Blood Culture, Received Pending 04/05/21 Respiratory Virus Panel (PCR) (ISAIAH) - Final, Complete SARS-CoV-2 (COVID 19) 04/05/21 Blood Culture, Received Pending Assessment/Plan Patient is 66 years old male with past medical history of type 2 diabetes, hypertension, depression, hypercholesterolemia, chronic left hip infection, history of cicatrizing conjunctivitis presented to the hospital with generalized weakness, cough, muscle ache and shortness of breath. Of note patient received 2 doses of Moderna vaccination in December. Patient stated that he developed symptoms around 1 week ago. On Wednesday patient was in urgent care and tested negative for COVID 19. In ER patient was found to have hypoxia with oxygen saturation low 80s, leukocytes count of 12.7, hemoglobin 12.8, lactic acid 2.3, creatinine 1.4, troponin negative. Chest x-ray showed Subtle bilateral lower lobe airspace disease cannot be excluded Problems (1) COVID-19 Status: Acute Problem Text: Labs according to COVID 19 protocol Remdesevir 19 IV, dexamethasone IV Await pro calcitonin (2) Pneumonia Status: Acute Problem Text: Secondary to viral infection Incentive spirometry Inhalers (3) Acute respiratory failure Status: Acute Problem Text: Patient oxygen requirements increased to 4 L Continue oxygen supplementation (4) Hypertension Status: Chronic Problem Text: Continue home meds (5) Hyperlipidemia Status: Chronic Problem Text: Continue statin (6) Diabetes mellitus Status: Chronic Problem Text: Diabetes diet Insulin sliding scale (7) 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
[2021-04-05 13:50] LABS: INR 0.97; PROTHROMBIN TIME 13.1 SECONDS (12.5-14.3)
[2021-04-05 13:51] LABS: PARTIAL THROMBOPLASTIN TIME 33.5 SECONDS (24.2-38.5)
[2021-04-05 13:53] LABS: D-DIMER QUANT 1539.98 ng/ml (<500)
[2021-04-05 14:15] LABS: FERRITIN 428 NG/ML (26-388); LDH LACTATE DEHYDROGENASE 287 U/L (87-241)
[2021-04-05 14:40] LABS: CPK CREATINE PHOSPHOKINASE 45 U/L (39-308); FERRITIN 444 NG/ML (26-388); LDH LACTATE DEHYDROGENASE 349 U/L (87-241); NT-PRO BNP 218 PG/ML (<125); TROPONIN I < 0.02 NG/ML (< 0.10)
[2021-04-05] MEDS: dexameTHASONE 4 MG/ML 1ML VIAL (J1100 PER 1MG) IV SCH (15:09)
--- NOTE | 2021-04-05 15:27 | REP ---
INDICATION: sob, abnormal cxr COMPARISON: None. TECHNIQUE: Axial contrast enhanced images from the thoracic inlet to the upper abdomen using pulmonary embolus technique with multiplanar re-formations. 75 ml Isovue 370 intravenous contrast material administered without complication. This CT examination was performed using the following dose reduction techniques: Automated exposure control, adjustment of mA and/or kv according to the patient's size, and use of iterative reconstruction technique. FINDINGS: Satisfactory enhancement of the pulmonary vasculature is achieved and no filling defects are identified to suggest pulmonary embolus. Further evaluation of the mediastinum demonstrates atherosclerotic changes to the thoracic aorta and coronary arteries without aortic aneurysm/dissection, cardiomegaly or pericardial effusion. The lung suárez demonstrate prominent scattered multifocal areas of ground-glass opacity bilaterally suggesting early acute multifocal pneumonia/pneumonitis. No obvious adenopathy. No effusion. No pneumothorax. Tracheobronchial tree is patent. IMPRESSION: No evidence for pulmonary embolus. Significant multifocal areas of ground-glass opacity suggesting pneumonitis/early pneumonia. <Electronically signed by Jeff Milligan > 04/05/21 1942
[2021-04-05] MEDS: NS 1,000 ML IV SCH (15:47)
[2021-04-05] MEDS ORDERED: REMDESIVIR 200 MG in NS 250 ML IV ONE (17:00)
[2021-04-05 17:05] VITALS: BP 139/68
[2021-04-05] MEDS: HumaLOG INSULIN (NovoLOG) PER UNIT SC SCH ×2 (17:48→21:10)
[2021-04-05 18:00] VITALS: O2SAT 92
[2021-04-05] MEDS: SODIUM CHLORIDE 0.9% INJ 10 ML SYR IV SCH (18:00)
[2021-04-05] MEDS ORDERED: SODIUM CHLORIDE 0.9% INJ 10 ML SYR IV ONE (18:00)
[2021-04-05] MEDS: LOSARTAN 50MG TABLET PO SCH (18:27)
[2021-04-05 20:00] VITALS: O2SAT 92
[2021-04-05] MEDS: AMOXICILLIN 875 MG TAB PO SCH (21:05)
[2021-04-05] MEDS: PRAVASTATIN 20 MG TAB PO SCH (21:05)
[2021-04-05] MEDS: COSOPT OCUMETER PLUS 10ML (DORZOLAMIDE/TIMOLOL) OU SCH (21:06)
[2021-04-05] MEDS: OFLOXACIN 0.3 % (OCUFLOX) OPTH SOL 5ML OU SCH (21:08)
[2021-04-05 21:23] VITALS: BP 151/72
[2021-04-05] MEDS: LEVALBUTEROL HFA 45MCG/ACT 15 GM INHALER INH PRN (23:38)
[2021-04-05 23:50] LABS: ABG BASE EXCESS -4.3 (-2.0-2.0); ABG HCO3 19.9 MEQ/L (22.0-26.0); ABG O2 SATURATION 97.8 % (95.0-99.0); ABG PARTIAL PRESSURE CO2 33.8 mmHg (35.0-45.0); ABG PARTIAL PRESSURE O2 108.3 mmHg (75.0-100.0); ABG STANDARD HCO3 20.9 MEQ/L (22.0-26.0); ABG TOTAL CO2 20.9 MEQ/L (23.0-31.0); ABG pH (ARTERIAL) 7.388 UNITS (7.350-7.450)
[2021-04-06] VITALS (11 sets, daily range): BP systolic 131–155; BP diastolic 61–72; O2SAT 92–96
[2021-04-06] MEDS: NS 1,000 ML IV SCH ×3 (02:42→20:01)
[2021-04-06] MEDS: dexameTHASONE 4 MG/ML 1ML VIAL (J1100 PER 1MG) IV SCH (08:20)
[2021-04-06] MEDS: HumaLOG INSULIN (NovoLOG) PER UNIT SC SCH ×4 (08:20→20:11)
[2021-04-06] MEDS: AMOXICILLIN 875 MG TAB PO SCH ×2 (08:20→20:00)
[2021-04-06] MEDS: ASPIRIN 81 MG CHEW TABLET PO SCH (08:20)
[2021-04-06] MEDS: LOSARTAN 50MG TABLET PO SCH (08:22)
[2021-04-06] MEDS: ENOXAPARIN 40MG/0.4ML SYRINGE (J1650 PER 10MG) SC SCH (08:23)
[2021-04-06] MEDS: OFLOXACIN 0.3 % (OCUFLOX) OPTH SOL 5ML OU SCH ×2 (08:23→20:01)
[2021-04-06] MEDS: COSOPT OCUMETER PLUS 10ML (DORZOLAMIDE/TIMOLOL) OU SCH ×2 (08:23→20:01)
[2021-04-06 09:09] LABS: CALCIUM LEVEL 9.1 MG/DL (8.8-10.2); CREATININE FOR GFR 1.35 MG/DL (0.70-1.30); GLOMERULAR FILTRATION RATE 56.1 (>49); MAGNESIUM LEVEL 2.1 MG/DL (1.8-2.4); POTASSIUM SERUM 4.7 MEQ/L (3.5-5.1)
[2021-04-06 09:15] LABS: BASO % 0.1 % (0.0-1.0); HEMATOCRIT 37.5 % (42.0-52.0); HEMOGLOBIN 12.5 g/dl (13.5-17.5); LYMPH # 0.7 10^3/uL (1.5-5.0); LYMPH % 3.9 % (24.0-44.0); MEAN CORPUSCULAR HEMOGLOBIN 31.3 pg (27.0-33.0); MEAN CORPUSCULAR HGB CONC 33.3 g/dl (32.0-36.5); MEAN CORPUSCULAR VOLUME 93.8 fl (80.0-96.0); MONO # 0.4 10^3/uL (0.0-0.8); MONO % 2.4 % (2.0-8.0); NEUTROPHILS # 15.6 10^3/uL (1.5-8.5); NEUTROPHILS % 92.5 % (36.0-66.0); PLATELET COUNT, AUTOMATED 317 10^3/uL (150-450); WHITE BLOOD COUNT 16.9 10^3/uL (4.0-10.0)
--- NOTE | 2021-04-06 12:17 | IPNPDOC ---
Text Note Date of Service The patient was seen on 04/06/21. NOTE Subjective: Patient oxygen requirements increased to 7 L via nasal cannula. Omar isaiah denied fever, chills. Patient reported intermittent cough without sputum production Objective: GENERAL APPEARANCE: Morbidly obese male HEENT: no scleral icterus, no JVD, EOMI CARDIOVASCULAR: S1S2 LUNGS: Diminished bilaterally ABDOMEN: soft & not tender w palpitation MUSCULOSKELETAL: no cyanosis, no swelling INTEGUMENT: no generalized pallor NEUROLOGICAL: cranial nerve function from 2-12 intact intact, follows commands, speech not dysarthric Assessment/Plan Patient is 66 years old male with past medical history of type 2 diabetes, hypertension, depression, hypercholesterolemia, chronic left hip infection, history of cicatrizing conjunctivitis presented to the hospital with generalized weakness, cough, muscle ache and shortness of breath. Of note patient received 2 doses of Moderna vaccination in December. Patient stated that he developed symptoms around 1 week ago. On Wednesday patient was in urgent care and tested negative for COVID 19. In ER patient was found to have hypoxia with oxygen saturation low 80s, leukocytes count of 12.7, hemoglobin 12.8, lactic acid 2.3, creatinine 1.4, troponin negative. Chest x-ray showed Subtle bilateral lower lobe airspace disease cannot be excluded Problems (1) COVID-19 Labs according to COVID 19 protocol D-dimer trended down Remdesevir 19 IV, dexamethasone IV pro calcitonin negative, blood culture negative (2) Pneumonia Secondary to viral infection CTA negative for pulmonary emboli Incentive spirometry Inhalers (3) Acute hypoxemic respiratory failure Patient oxygen requirements increased to 7 L Continue oxygen supplementation Patient encourage for prone position for 5-6 hours 2 to 3 times a day (4) Hypertension Continue home meds (5) Hyperlipidemia Continue statin (6) Diabetes mellitus Diabetes diet Insulin sliding scale (7) Prosthetic joint infection of left hip Continue amoxicillin by mouth VS,Fishbone, I+O VS, Fishbone, I+O Laboratory Tests 04/06/21 08:35 Vital Signs Date Time Temp Pulse Resp B/P (MAP) Pulse Ox O2 Delivery O2 Flow Rate FiO2 04/06/21 08:52 7.0 04/06/21 08:30 97.0 98 22 155/70 (98) 89 High Flow Cannula I&O- Last 24 Hours up to 6 AM 04/06/21 06:00 Intake Total 2560 ml Output Total 450 ml Balance 2110 ml SUSNA SANCHES DO Apr 06, 2021 12:17
[2021-04-06] MEDS: REMDESIVIR 100 MG in NS 250 ML IV SCH (17:01)
[2021-04-06] MEDS: SODIUM CHLORIDE 0.9% INJ 10 ML SYR IV SCH (17:02)
--- NOTE | 2021-04-06 19:21 | ECGEPIP ---
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
[2021-04-06] MEDS: PRAVASTATIN 20 MG TAB PO SCH (20:00)
[2021-04-06] MEDS: ACETAMINOPHEN TAB 650MG DOSE (2X325MG) PO PRN (20:08)
[2021-04-07] VITALS (10 sets, daily range): BP systolic 149–192; BP diastolic 63–115; O2SAT 96–98
[2021-04-07] MEDS: LEVALBUTEROL HFA 45MCG/ACT 15 GM INHALER INH PRN (02:36)
[2021-04-07] MEDS: NS 1,000 ML IV SCH (05:19)
[2021-04-07 07:09] LABS: BASO % 0.1 % (0.0-1.0); HEMATOCRIT 34.6 % (42.0-52.0); HEMOGLOBIN 11.2 g/dl (13.5-17.5); LYMPH # 0.7 10^3/uL (1.5-5.0); LYMPH % 4.3 % (24.0-44.0); MEAN CORPUSCULAR HEMOGLOBIN 30.5 pg (27.0-33.0); MEAN CORPUSCULAR HGB CONC 32.4 g/dl (32.0-36.5); MEAN CORPUSCULAR VOLUME 94.3 fl (80.0-96.0); MONO # 0.4 10^3/uL (0.0-0.8); MONO % 2.2 % (2.0-8.0); NEUTROPHILS # 14.9 10^3/uL (1.5-8.5); NEUTROPHILS % 92.3 % (36.0-66.0); PLATELET COUNT, AUTOMATED 313 10^3/uL (150-450); RED BLOOD COUNT 3.67 10^6/uL (4.30-6.10); WHITE BLOOD COUNT 16.2 10^3/uL (4.0-10.0)
[2021-04-07 07:13] LABS: ALBUMIN 1.9 GM/DL (3.2-5.2); BILIRUBIN,DIRECT 0.1 MG/DL (0.0-0.2); BILIRUBIN,TOTAL 0.2 MG/DL (0.2-1.0); TOTAL PROTEIN 6.8 GM/DL (6.4-8.2); TROPONIN I 0.02 NG/ML (< 0.10)
[2021-04-07 07:18] LABS: PROTHROMBIN TIME 13.4 SECONDS (12.5-14.3)
[2021-04-07 07:19] LABS: PARTIAL THROMBOPLASTIN TIME 31.1 SECONDS (24.2-38.5)
[2021-04-07 08:02] LABS: D-DIMER QUANT 1076.05 ng/ml (<500)
[2021-04-07 08:32] LABS: BLOOD UREA NITROGEN 39 MG/DL (7-18); CALCIUM LEVEL 8.7 MG/DL (8.8-10.2); CARBON DIOXIDE LEVEL 24 MEQ/L (21-32); CHLORIDE LEVEL 113 MEQ/L (98-107); CREATININE FOR GFR 1.07 MG/DL (0.70-1.30); GLOMERULAR FILTRATION RATE > 60.0 (>49); GLUCOSE, FASTING 117 MG/DL (70-100); POTASSIUM SERUM 4.3 MEQ/L (3.5-5.1); SODIUM LEVEL 144 MEQ/L (136-145)
[2021-04-07] MEDS: ENOXAPARIN 40MG/0.4ML SYRINGE (J1650 PER 10MG) SC SCH (08:56)
[2021-04-07] MEDS: dexameTHASONE 4 MG/ML 1ML VIAL (J1100 PER 1MG) IV SCH (08:56)
[2021-04-07] MEDS: AMOXICILLIN 875 MG TAB PO SCH ×2 (08:57→21:02)
[2021-04-07] MEDS: LOSARTAN 50MG TABLET PO SCH (08:57)
[2021-04-07] MEDS: ASPIRIN 81 MG CHEW TABLET PO SCH (08:57)
[2021-04-07] MEDS: HumaLOG INSULIN (NovoLOG) PER UNIT SC SCH ×4 (08:57→21:02)
[2021-04-07] MEDS: COSOPT OCUMETER PLUS 10ML (DORZOLAMIDE/TIMOLOL) OU SCH ×2 (09:00→21:51)
[2021-04-07] MEDS: OFLOXACIN 0.3 % (OCUFLOX) OPTH SOL 5ML OU SCH ×2 (09:00→21:51)
--- NOTE | 2021-04-07 13:46 | IPNPDOC ---
Text Note Date of Service The patient was seen on 04/07/21. NOTE Subjective: Patient oxygen requirements increased to 40 L via Vapotherm. Patient denied fever, chills. Patient reported intermittent cough without sputum production Objective: GENERAL APPEARANCE: Morbidly obese male HEENT: no scleral icterus, no JVD, EOMI CARDIOVASCULAR: S1S2 LUNGS: Diminished bilaterally ABDOMEN: soft & not tender w palpitation MUSCULOSKELETAL: no cyanosis, no swelling INTEGUMENT: no generalized pallor NEUROLOGICAL: cranial nerve function from 2-12 intact intact, follows commands, speech not dysarthric Assessment/Plan Patient is 66 years old male with past medical history of type 2 diabetes, hypertension, depression, hypercholesterolemia, chronic left hip infection, history of cicatrizing conjunctivitis presented to the hospital with generalized weakness, cough, muscle ache and shortness of breath. Of note patient received 2 doses of Moderna vaccination in December. Patient stated that he developed symptoms around 1 week ago. On Wednesday patient was in urgent care and tested negative for COVID 19. In ER patient was found to have hypoxia with oxygen saturation low 80s, leukocytes count of 12.7, hemoglobin 12.8, lactic acid 2.3, creatinine 1.4, troponin negative. Chest x-ray showed Subtle bilateral lower lobe airspace disease cannot be excluded Problems (1) COVID-19 Labs according to COVID 19 protocol D-dimer trended down Remdesevir 19 IV, dexamethasone IV pro calcitonin negative, blood culture negative (2) Pneumonia Secondary to viral infection CTA negative for pulmonary emboli c/w Incentive spirometry Inhalers (3) Acute hypoxemic respiratory failure Patient oxygen requirements increased Continue oxygen supplementation Patient encourage for prone position for 5-6 hours 2 to 3 times a day (4) Hypertension Continue home meds (5) Hyperlipidemia Continue statin (6) Diabetes mellitus Diabetes diet Insulin sliding scale (7) Prosthetic joint infection of left hip Continue amoxicillin by mouth VS,Fishbone, I+O VS, Fishbone, I+O Laboratory Tests 04/07/21 06:30 04/07/21 06:51 Vital Signs Date Time Temp Pulse Resp B/P (MAP) Pulse Ox O2 Delivery O2 Flow Rate FiO2 04/07/21 12:00 40.0 100 04/07/21 12:00 108 22 89 HVNI-Vapotherm 04/07/21 11:47 99.0 161/86 (111) I&O- Last 24 Hours up to 6 AM 04/07/21 06:00 Intake Total 1580 ml Output Total 1025 ml Balance 555 ml SUSAN SANCHES DO Apr 07, 2021 13:46
[2021-04-07] MEDS: REMDESIVIR 100 MG in NS 250 ML IV SCH (16:05)
[2021-04-07] MEDS: SODIUM CHLORIDE 0.9% INJ 10 ML SYR IV SCH (17:31)
[2021-04-07] MEDS: PRAVASTATIN 20 MG TAB PO SCH (21:02)
[2021-04-07] MEDS ORDERED: hydrALAZINE 20MG/ML 1ML VIAL (J0360 PER 20MG) IV PRN (21:45)
[2021-04-08] VITALS (13 sets, daily range): BP systolic 118–188; BP diastolic 57–88
[2021-04-08 05:02] LABS: BASO % 0.3 % (0.0-1.0); EOS % 0.2 % (0.0-3.0); HEMATOCRIT 37.1 % (42.0-52.0); HEMOGLOBIN 12.2 g/dl (13.5-17.5); LYMPH # 0.8 10^3/uL (1.5-5.0); LYMPH % 6.7 % (24.0-44.0); MEAN CORPUSCULAR HEMOGLOBIN 30.5 pg (27.0-33.0); MEAN CORPUSCULAR HGB CONC 32.9 g/dl (32.0-36.5); MEAN CORPUSCULAR VOLUME 92.8 fl (80.0-96.0); MONO # 0.3 10^3/uL (0.0-0.8); MONO % 2.7 % (2.0-8.0); NEUTROPHILS # 10.5 10^3/uL (1.5-8.5); NEUTROPHILS % 88.6 % (36.0-66.0); PLATELET COUNT, AUTOMATED 367 10^3/uL (150-450); WHITE BLOOD COUNT 11.8 10^3/uL (4.0-10.0)
[2021-04-08 05:56] LABS: BLOOD UREA NITROGEN 33 MG/DL (7-18); CALCIUM LEVEL 8.9 MG/DL (8.8-10.2); CARBON DIOXIDE LEVEL 24 MEQ/L (21-32); CHLORIDE LEVEL 111 MEQ/L (98-107); CREATININE FOR GFR 0.97 MG/DL (0.70-1.30); GLOMERULAR FILTRATION RATE > 60.0 (>49); GLUCOSE, FASTING 128 MG/DL (70-100); POTASSIUM SERUM 4.4 MEQ/L (3.5-5.1); SODIUM LEVEL 143 MEQ/L (136-145)
[2021-04-08] MEDS: dexameTHASONE 4 MG/ML 1ML VIAL (J1100 PER 1MG) IV SCH ×2 (08:27→21:32)
[2021-04-08] MEDS: ASPIRIN 81 MG CHEW TABLET PO SCH (08:27)
[2021-04-08] MEDS: ENOXAPARIN 40MG/0.4ML SYRINGE (J1650 PER 10MG) SC SCH (08:27)
[2021-04-08] MEDS: AMOXICILLIN 875 MG TAB PO SCH ×2 (08:27→21:31)
[2021-04-08] MEDS: LOSARTAN 50MG TABLET PO SCH (08:28)
[2021-04-08] MEDS: COSOPT OCUMETER PLUS 10ML (DORZOLAMIDE/TIMOLOL) OU SCH ×2 (08:28→21:33)
[2021-04-08] MEDS: OFLOXACIN 0.3 % (OCUFLOX) OPTH SOL 5ML OU SCH ×2 (08:28→21:33)
[2021-04-08] MEDS: HumaLOG INSULIN (NovoLOG) PER UNIT SC SCH ×4 (08:29→21:00)
--- NOTE | 2021-04-08 09:22 | REP ---
INDICATION: increased 02 demands.. COMPARISON: 04/05/2021. TECHNIQUE: Single portable AP view of the chest was performed. FINDINGS: Diffuse bilateral infiltrates have increased since prior study. The heart and mediastinum are unchanged. IMPRESSION: Extensive diffuse bilateral infiltrates have increased since the prior study. <Electronically signed by Rocky Meraz > 04/08/21 0918
[2021-04-08 09:28] LABS: D-DIMER QUANT 2146.52 ng/ml (<500)
[2021-04-08] MEDS ORDERED: METOPROLOL TART 50 MG TAB PO ONE ×2 (10:00→11:35)
[2021-04-08] MEDS ORDERED: METOPROLOL 5 MG/5 ML VIAL IV PRN ×2 (10:00→12:00)
[2021-04-08] MEDS ORDERED: FUROSEMIDE 40MG/4ML VIAL (J1940) IV ONE (10:00)
[2021-04-08 10:06] LABS: PROTHROMBIN TIME 13.4 SECONDS (12.5-14.3)
[2021-04-08 10:07] LABS: PARTIAL THROMBOPLASTIN TIME 31.5 SECONDS (24.2-38.5)
[2021-04-08 10:23] LABS: LDH LACTATE DEHYDROGENASE 462 U/L (87-241); NT-PRO BNP 613 PG/ML (<125); TROPONIN I 0.03 NG/ML (< 0.10)
[2021-04-08] MEDS ORDERED: AMIODARONE HCL 150 MG in IV 1 EA IV ONE (10:25)
[2021-04-08] MEDS ORDERED: AMIODARONE HCL 150 MG/100 ML PREMIXED BAG (NEXTERONE) (J0282 PER 30MG) As Ordered ONE (10:28)
--- NOTE | 2021-04-08 10:40 | CCN ---
CRITICAL CARE NOTE DATE: 04/08/2021 START TIME: 939 STOP TIME: 1018 SUBJECTIVE: I was called to attend Santos Shepard here in the intensive care unit. The patient has been examined and chart reviewed. I spoke at length with the nurse at the bedside, as well as with Dr. Palomino regarding his status. In essence, this is a 66-year-old gentleman who had actually been immunized against COVID-19 with two doses of the Moderna vaccine in December. However, he is chronically immunocompromised by taking Rituxan. He also has type 2 diabetes, hypertension, depression, underlying hypercholesterolemia, and cicatrizing conjunctivitis with underlying rheumatoid arthritis. He presented to the ER not feeling well. He had diarrhea and then progressive shortness of breath. He was found to have COVID-19 with associated pneumonitis and was hypoxic. Over the last several days, he had some improvement in his inflammatory markers, but these worsened today. He had increasing oxygen requirements. He was on low dose Lovenox and only once daily Decadron. He did receive remdesivir. In view of his increasing oxygen requirements, he was placed on CPAP and I am asked to become involved in his care. He also converted to atrial fibrillation this morning with a rate between 110 to 120. OBJECTIVE: GENERAL: At this point, he is awake, alert, and appropriate. He is on CPAP of 10 with titrating FiO2 requirements. Currently his SaO2 is 96%. HEENT: Otherwise normocephalic, atraumatic. Pupils react. NECK: Supple. Trachea is midline. CHEST: Shows diminished, but reasonably symmetric expansion. There are some dependent crackles. No convincing egophony. No obvious wheeze. CARDIAC: Distant, irregularly irregular. Peripheral pulses diminished, but palpable. Trace edema. ABDOMEN: Obese and soft with active bowel sounds. No convincing organomegaly or masses. EXTREMITIES: No cyanosis or clubbing. NEUROLOGIC: He is awake, alert, and appropriate. PSYCHIATRIC: Shows withdrawn mood and affect. LABORATORY DATA: White blood cell count 11.8, hemoglobin 12.2, platelet count 367,000, segs 80% and no bands. Sodium 143, K 4.4, chloride 111, CO2 of 24, BUN 33, creatinine 0.97. D-dimer, which on the was 1539, reached a low yesterday of 1076, but is markedly elevated today at 2146. Ferritin yesterday 620 up from 444 two days prior. IMAGING DATA: Chest x-rays and CT scans reviewed and certainly are consistent with viral pneumonitis. IMPRESSION: The most pressing problems requiring my presence at the bedside: 1. Hypoxemic respiratory failure now on CPAP secondary to COVID. 2. Atrial fibrillation being managed through the primary service. 3. High risk medication/Decadron, Lovenox, remdesivir, Rituxan. PLAN: At this point, I am in agreement with CPAP. He is responding nicely to it. He is on remdesivir. We will increase his steroids in view of his inflammatory markers and further dose adjust his Lovenox as it really should be b.i.d. dosing now especially in view of his atrial fibrillation. Nurses were in contact with Dr. Palomino. Though he is not horribly tachycardic, this does need to be addressed and Dr. Palomino has been contacted. At this point, we will proceed as outlined above. Certainly it is much more favorable that he has had the vaccine, but clearly this did not prevent his infection as he has not only several other comorbidities, but is immunocompromised due to his immunosuppressants for his connective tissue disease. Will proceed as outlined above. I left the bedside at 1018 hours. CRITICAL CARE TIME: 38 minutes delivered at the bedside not including procedures.
[2021-04-08] MEDS ORDERED: diltiaZEM 125 MG in NS 100 ML IV SCH (11:00)
[2021-04-08] MEDS ORDERED: ENOXAPARIN 40MG/0.4ML SYRINGE (J1650 PER 10MG) SC ONE (11:00)
[2021-04-08 11:13] LABS: ABG HCO3 23.2 MEQ/L (22.0-26.0); ABG O2 SATURATION 95.3 % (95.0-99.0); ABG PARTIAL PRESSURE CO2 33.6 mmHg (35.0-45.0); ABG PARTIAL PRESSURE O2 77.4 mmHg (75.0-100.0); ABG STANDARD HCO3 24.4 MEQ/L (22.0-26.0); ABG TOTAL CO2 24.2 MEQ/L (23.0-31.0); ABG pH (ARTERIAL) 7.457 UNITS (7.350-7.450)
--- NOTE | 2021-04-08 13:35 | IPNPDOC ---
Text Note Date of Service The patient was seen on 04/08/21. NOTE Subjective: Patient has 82% oxygen saturation on 40 L via Vapotherm, transfer red to CPAP. Also pt developed RVR with new onset of afib Objective: GENERAL APPEARANCE: Morbidly obese male HEENT: no scleral icterus, no JVD, EOMI CARDIOVASCULAR: Irregular irregular heart rate 125 LUNGS: Diminished bilaterally ABDOMEN: soft & not tender w palpitation MUSCULOSKELETAL: no cyanosis, no swelling INTEGUMENT: no generalized pallor NEUROLOGICAL: cranial nerve function from 2-12 intact intact, follows commands, speech not dysarthric Assessment/Plan Patient is 66 years old male with past medical history of type 2 diabetes, hypertension, depression, hypercholesterolemia, chronic left hip infection, history of cicatrizing conjunctivitis presented to the hospital with generalized weakness, cough, muscle ache and shortness of breath. Of note patient received 2 doses of Moderna vaccination in December. Patient stated that he developed symptoms around 1 week ago. On Wednesday patient was in urgent care and tested negative for COVID 19. In ER patient was found to have hypoxia with oxygen saturation low 80s, leukocytes count of 12.7, hemoglobin 12.8, lactic acid 2.3, creatinine 1.4, troponin negative. Chest x-ray showed Subtle bilateral lower lobe airspace disease cannot be excluded Problems (1) COVID-19 Labs according to COVID 19 protocol D-dimer trended up today Continue Remdesevir 19 IV, dexamethasone IV pro calcitonin negative, blood culture negative Continue CPAP Follow gas leak tester recommendation (2) Pneumonia Secondary to viral infection CTA negative for pulmonary emboli Chest x-ray 04/08/21 showed Extensive diffuse bilateral infiltrates have increased since the prior study c/w Incentive spirometry Inhalers (3) Acute hypoxemic respiratory failure Patient oxygen requirements increased Continue oxygen supplementation Patient encourage for prone position for 5-6 hours 2 to 3 times a day (4) Hypertension Continue home meds (5) Hyperlipidemia Continue statin (6) Diabetes mellitus Diabetes diet Insulin sliding scale (7) Prosthetic joint infection of left hip Continue amoxicillin by mouth New-onset atrial fibrillation with rapid ventricular rate Patient received one dose of amiodarone 150 mg. Atrial fibrillation was converted normal sinus rhythm Metoprolol 50 mg every 8 hours Lopressor IV with parameters Full dose AC with lovenox VS,Fishbone, I+O VS, Fishbone, I+O Laboratory Tests 04/08/21 04:39 Vital Signs Date Time Temp Pulse Resp B/P (MAP) Pulse Ox O2 Delivery O2 Flow Rate FiO2 04/08/21 12:45 98.3 108 24 91 HVNI-Vapotherm 40.0 100 04/08/21 12:38 118/61 I&O- Last 24 Hours up to 6 AM 04/08/21 05:59 Intake Total 2150 ml Output Total 1875 ml Balance 275 ml SUSAN SANCHES DO Apr 08, 2021 13:35
[2021-04-08] MEDS: REMDESIVIR 100 MG in NS 250 ML IV SCH (16:48)
[2021-04-08] MEDS: SODIUM CHLORIDE 0.9% INJ 10 ML SYR IV SCH (17:44)
[2021-04-08] MEDS ORDERED: METOPROLOL TART 50 MG TAB PO SCH ×2 (21:00)
[2021-04-08] MEDS: METOPROLOL TART 50 MG TAB PO SCH (21:31)
[2021-04-08] MEDS: PRAVASTATIN 20 MG TAB PO SCH (21:32)
[2021-04-08] MEDS: ENOXAPARIN 80MG/0.8ML SYRINGE (J1650 PER 10MG) SC SCH (21:33)
[2021-04-08] MEDS: LEVALBUTEROL HFA 45MCG/ACT 15 GM INHALER INH PRN (22:22)
[2021-04-09] VITALS: BP 149/66
[2021-04-09 04:00] VITALS: BP 134/64
[2021-04-09] MEDS: METOPROLOL TART 50 MG TAB PO SCH ×3 (05:09→21:19)
[2021-04-09 05:26] LABS: BASO % 0.2 % (0.0-1.0); HEMATOCRIT 34.4 % (42.0-52.0); HEMOGLOBIN 11.2 g/dl (13.5-17.5); LYMPH # 0.6 10^3/uL (1.5-5.0); LYMPH % 5.2 % (24.0-44.0); MEAN CORPUSCULAR HEMOGLOBIN 29.9 pg (27.0-33.0); MEAN CORPUSCULAR HGB CONC 32.6 g/dl (32.0-36.5); MONO # 0.2 10^3/uL (0.0-0.8); MONO % 1.8 % (2.0-8.0); NEUTROPHILS # 10.1 10^3/uL (1.5-8.5); NEUTROPHILS % 91.7 % (36.0-66.0); PLATELET COUNT, AUTOMATED 340 10^3/uL (150-450); RED BLOOD COUNT 3.74 10^6/uL (4.30-6.10)
[2021-04-09 05:39] LABS: INR 1.1; PROTHROMBIN TIME 14.4 SECONDS (12.5-14.3)
[2021-04-09 05:40] LABS: PARTIAL THROMBOPLASTIN TIME 38.6 SECONDS (24.2-38.5)
[2021-04-09 05:56] LABS: ALBUMIN 1.9 GM/DL (3.2-5.2); ALT/SGPT 31 U/L (12-78); BILIRUBIN,DIRECT 0.1 MG/DL (0.0-0.2); BILIRUBIN,TOTAL 0.3 MG/DL (0.2-1.0); CPK CREATINE PHOSPHOKINASE 40 U/L (39-308); FERRITIN 474 NG/ML (26-388); LDH LACTATE DEHYDROGENASE 373 U/L (87-241); NT-PRO BNP 691 PG/ML (<125); TOTAL PROTEIN 6.5 GM/DL (6.4-8.2); TROPONIN I 0.03 NG/ML (< 0.10)
[2021-04-09] MEDS: HumaLOG INSULIN (NovoLOG) PER UNIT SC SCH ×4 (07:30→21:00)
[2021-04-09 08:00] VITALS: BP 161/89
[2021-04-09 08:17] LABS: BLOOD UREA NITROGEN 30 MG/DL (7-18); CARBON DIOXIDE LEVEL 23 MEQ/L (21-32); CHLORIDE LEVEL 110 MEQ/L (98-107); CREATININE FOR GFR 0.91 MG/DL (0.70-1.30); GLOMERULAR FILTRATION RATE > 60.0 (>49); GLUCOSE, FASTING 172 MG/DL (70-100); POTASSIUM SERUM 4.4 MEQ/L (3.5-5.1); SODIUM LEVEL 140 MEQ/L (136-145)
[2021-04-09] MEDS: ENOXAPARIN 80MG/0.8ML SYRINGE (J1650 PER 10MG) SC SCH ×2 (08:34→21:19)
[2021-04-09] MEDS: dexameTHASONE 4 MG/ML 1ML VIAL (J1100 PER 1MG) IV SCH ×2 (08:34→21:18)
[2021-04-09] MEDS: ASPIRIN 81 MG CHEW TABLET PO SCH (08:34)
[2021-04-09] MEDS: LOSARTAN 50MG TABLET PO SCH (08:35)
[2021-04-09] MEDS: OFLOXACIN 0.3 % (OCUFLOX) OPTH SOL 5ML OU SCH ×2 (08:35→21:19)
[2021-04-09] MEDS: AMOXICILLIN 875 MG TAB PO SCH ×2 (08:35→21:18)
[2021-04-09] MEDS: COSOPT OCUMETER PLUS 10ML (DORZOLAMIDE/TIMOLOL) OU SCH ×2 (08:35→21:19)
--- NOTE | 2021-04-09 10:37 | IPNPDOC ---
Text Note Date of Service The patient was seen on 04/09/21. NOTE Subjective: Patient is on 40 L via Vapotherm, his heart rate under control. P atient continues to have intermittent dry cough Objective: GENERAL APPEARANCE: Morbidly obese male HEENT: no scleral icterus, no JVD, EOMI CARDIOVASCULAR:S1S2 with heart rate 65, regular LUNGS: Diminished bilaterally ABDOMEN: soft & not tender w palpitation MUSCULOSKELETAL: no cyanosis, no swelling INTEGUMENT: no generalized pallor NEUROLOGICAL: cranial nerve function from 2-12 intact intact, follows commands, speech not dysarthric Assessment/Plan Patient is 66 years old male with past medical history of type 2 diabetes, hypertension, depression, hypercholesterolemia, chronic left hip infection, history of cicatrizing conjunctivitis presented to the hospital with generalized weakness, cough, muscle ache and shortness of breath. Of note patient received 2 doses of Moderna vaccination in December. Patient stated that he developed symptoms around 1 week ago. On Wednesday patient was in urgent care and tested negative for COVID 19. In ER patient was found to have hypoxia with oxygen saturation low 80s, leukocytes count of 12.7, hemoglobin 12.8, lactic acid 2.3, creatinine 1.4, troponin negative. Chest x-ray showed Subtle bilateral lower lobe airspace disease cannot be excluded Problems (1) COVID-19 Labs according to COVID 19 protocol Continue Remdesevir 19 IV, dexamethasone IV pro calcitonin negative, blood culture negative Continue Vapotherm for now Follow [employer] director recommendation (2) Pneumonia Secondary to viral infection CTA negative for pulmonary emboli Chest x-ray 04/08/21 showed Extensive diffuse bilateral infiltrates have increased since the prior study c/w Incentive spirometry Inhalers (3) Acute hypoxemic respiratory failure Continue oxygen supplementation Patient encourage for prone position for 5-6 hours 2 to 3 times a day (4) Hypertension Continue home meds (5) Hyperlipidemia Continue statin (6) Diabetes mellitus Diabetes diet Insulin sliding scale (7) Prosthetic joint infection of left hip Continue amoxicillin by mouth New-onset atrial fibrillation with rapid ventricular rate Resolved Continue Metoprolol 50 mg every 8 hours Lopressor IV with parameters Full dose AC with lovenox VS,Fishbone, I+O VS, Fishbone, I+O Laboratory Tests 04/09/21 05:03 Vital Signs Date Time Temp Pulse Resp B/P (MAP) Pulse Ox O2 Delivery O2 Flow Rate FiO2 04/09/21 08:35 142/68 04/09/21 08:00 97.8 70 26 90 HVNI-Vapotherm 40.0 100 I&O- Last 24 Hours up to 6 AM 04/09/21 05:59 Intake Total 1230 ml Output Total 2075 ml Balance -845 ml SUSAN SANCHES DO Apr 09, 2021 10:37
--- NOTE | 2021-04-09 10:38 | CCN ---
CRITICAL CARE NOTE DATE: 04/09/2021 SUBJECTIVE: The patient has been examined, chart reviewed, and I spoke at length with the nurse at the bedside. He is much more comfortable this morning. He remains in normal sinus rhythm. He is predominantly on Vapotherm. He is able to tolerate at least a full liquid diet. OBJECTIVE: VITAL SIGNS: T-max overnight 97.8, blood pressure 130s to 140s. Heart rate generally in the 60s with a sinus mechanism. Respiratory rate upper teens to low twenties without accessory muscle use. Currently saturation 87% to 93% on Vapotherm 40 liters per minute. Is and Os vduialxu-nd-wpluumbi 870 mL in with 1725 mL out. GENERAL APPEARANCE: He is awake, alert, appropriate, and sitting at the bedside. HEENT: Pupils react. Sclerae clear. Trachea is in the middling. Mucous membranes of the nose and mouth are moist. Trachea is in the midline. CHEST: Diminished, but symmetric expansion. Lung suárez are generally clear with only minimal crackles at the extreme bases that improve with inspiratory effort. No other focal adventitious breath sounds are identified. CARDIAC: Distant, but regular. Peripheral pulses palpable. No edema. ABDOMEN: Obese, soft, and nontender with active bowel sounds. No hepatosplenomegaly or masses. EXTREMITIES: No clubbing or cyanosis. NEUROLOGIC: Awake, alert, and appropriate. PSYCHIATRIC: Normal mood and affect. LABORATORY DATA: Most recent laboratories show a white blood cell count of 11.0, hemoglobin 11.2, platelet count of 340,000, segs 94%, and no bands. Sodium 140, potassium 4.4, chloride 110, CO2 of 23, BUN 30, creatinine 0.9, glucose 172. Ferritin down to 474 today. LDH down from yesterday 462 to 373 today. CRP is not repeated. His BNP remains minimally elevated at 691. D-dimer not drawn today. IMAGING DATA: No new imaging today. IMPRESSION: 1. COVID pneumonia with hypoxemia. 2. Hypoxemia on the basis of the above. 3. Atrial fibrillation, resolved. 4. High risk medications Rituxan, remdesivir, Lovenox, Decadron. PLAN: At this point, we will continue his current level of Lovenox and Decadron. He will finish his course of remdesivir. He has remained in normal sinus rhythm after the interventions from yesterday. We will continue him monitor him off his CPAP for now because I do believe assistance with recruitment will help his oxygen status. He remains on p.o. amoxicillin and I have no issues with this. I had a long discussion with the patient regarding his status. For now, we will slowly advance his diet as tolerated if he is able to stay off CPAP. He understands the reasoning for this. At this point, we will proceed as outlined above. We will recheck his inflammatory markers tomorrow. Further recommendations will be made in the progress record as new information becomes available.
[2021-04-09] MEDS ORDERED: FUROSEMIDE 40MG/4ML VIAL (J1940) IV ONE (10:45)
[2021-04-09 12:00] VITALS: BP 156/74
[2021-04-09] MEDS ORDERED: METOPROLOL TART 50 MG TAB PO STA (13:15)
[2021-04-09 16:00] VITALS: BP 159/72
[2021-04-09] MEDS: REMDESIVIR 100 MG in NS 250 ML IV SCH (16:38)
[2021-04-09] MEDS: SODIUM CHLORIDE 0.9% INJ 10 ML SYR IV SCH (17:47)
[2021-04-09 20:00] VITALS: BP 150/66
[2021-04-09] MEDS: PRAVASTATIN 20 MG TAB PO SCH (21:18)
[2021-04-10] VITALS: BP 139/63
[2021-04-10 04:00] VITALS: BP 117/55
[2021-04-10 04:54] LABS: BASO % 0.1 % (0.0-1.0); HEMATOCRIT 35.6 % (42.0-52.0); HEMOGLOBIN 11.5 g/dl (13.5-17.5); LYMPH # 0.7 10^3/uL (1.5-5.0); LYMPH % 4.7 % (24.0-44.0); MEAN CORPUSCULAR HEMOGLOBIN 29.7 pg (27.0-33.0); MEAN CORPUSCULAR HGB CONC 32.3 g/dl (32.0-36.5); MONO # 0.4 10^3/uL (0.0-0.8); MONO % 2.6 % (2.0-8.0); NEUTROPHILS # 12.8 10^3/uL (1.5-8.5); NEUTROPHILS % 91.5 % (36.0-66.0); PLATELET COUNT, AUTOMATED 383 10^3/uL (150-450); RED BLOOD COUNT 3.87 10^6/uL (4.30-6.10); WHITE BLOOD COUNT 13.9 10^3/uL (4.0-10.0)
[2021-04-10] MEDS: METOPROLOL TART 50 MG TAB PO SCH ×3 (05:02→21:01)
[2021-04-10 05:20] LABS: ALT/SGPT 31 U/L (12-78); BILIRUBIN,TOTAL 0.4 MG/DL (0.2-1.0); BLOOD UREA NITROGEN 38 MG/DL (7-18); CALCIUM LEVEL 8.7 MG/DL (8.8-10.2); CARBON DIOXIDE LEVEL 25 MEQ/L (21-32); CHLORIDE LEVEL 108 MEQ/L (98-107); CREATININE FOR GFR 1.09 MG/DL (0.70-1.30); GLOMERULAR FILTRATION RATE > 60.0 (>49); GLUCOSE, FASTING 180 MG/DL (70-100); POTASSIUM SERUM 4.8 MEQ/L (3.5-5.1); SODIUM LEVEL 142 MEQ/L (136-145); TOTAL PROTEIN 5.9 GM/DL (6.4-8.2)
--- NOTE | 2021-04-10 05:40 | ECGEPIP ---
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
[2021-04-10 08:00] VITALS: BP 140/64
[2021-04-10] MEDS: HumaLOG INSULIN (NovoLOG) PER UNIT SC SCH ×4 (08:14→20:58)
[2021-04-10] MEDS: OFLOXACIN 0.3 % (OCUFLOX) OPTH SOL 5ML OU SCH ×2 (08:15→21:02)
[2021-04-10] MEDS: COSOPT OCUMETER PLUS 10ML (DORZOLAMIDE/TIMOLOL) OU SCH ×2 (08:15→20:48)
--- NOTE | 2021-04-10 09:38 | CCN ---
PULMONARY CRITICAL CARE NOTE DATE: 04/10/2021 SUBJECTIVE: I again attended Santos Shepard here in the intensive care unit. The patient has been examined, chart reviewed, and I spoke at length with the nurse at the bedside. He is feeling better today. He is awake, alert, and appropriate. He spends at least eight hours a night on CPAP. He does wear it for naps during the day. He would really like to advance his diet and I do not see a problem with that. OBJECTIVE: VITAL SIGNS: T-max overnight 97.6, blood pressure one-teens to the 130s. Heart rate generally 70s and 80s with a sinus mechanism. Respiratory rate between 20 and 24 without accessory muscle use. INTAKE AND OUTPUT: Xaxyjzio-zh-axlixmzv 2430 mL in with 2225 mL out. GENERAL APPEARANCE: He is awake, alert, appropriate, and has the Vapotherm in place currently at 25 liter flow. HEENT: Otherwise normocephalic, atraumatic. Pupils react. Neck is supple. Trachea midline. Mucous membranes of the nose and mouth are moist. CHEST: Shows diminished, but symmetric expansion. His inspiratory crackles at the bases are unchanged. There is no rhonchus or wheeze. No rubs. No other focal adventitious breath sounds are identified. CARDIAC: Generally regular. Peripheral pulses palpable. No obvious edema. ABDOMEN: Obese and soft with active bowel sounds. No convincing organomegaly or masses. EXTREMITIES: No cyanosis or clubbing. NEUROLOGIC: He is awake, alert, and appropriate. PSYCHIATRIC: Normal mood and affect. LABORATORY DATA: Most recent laboratories show a white blood cell count of 13.9, hemoglobin 11.5, platelet count 383,000, segs 91.5%, and no bands. Sodium 142, K of 4.8, chloride 108, CO2 of 25, BUN 38, creatinine 1.09, glucose 180. Repeat CRP is pending. No repeat ferritin today, but one is ordered for tomorrow. D-dimer this morning down to 808 from a high of 2146. IMPRESSION: 1. Hypoxemia multifactorial. 2. COVID pneumonia despite getting the Moderna vaccine. 3. Atrial fibrillation. 4. Anticoagulation secondary to COVID and atrial fibrillation. 5. Intravenous (IV) steroids / remdesivir. 6. Diabetes mellitus. 7. Hypertension. RECOMMENDATIONS: At this point, I will advance his diet as he has done well wearing the CPAP mainly at night and has been for the most part on Vapotherm during the day. He feels better. His oxygenation status is holding for now. For now, I will continue his current level of steroids. He is on therapeutic levels of Lovenox for his COVID. We will proceed as outlined above. He will continue to be followed closely while he is here in the intensive care unit especially. My hope is that in the next several days we will be able to start weaning his FiO2. He has shown some improvement in his inflammatory markers and these are being followed. I spoke with his primary service in that regard as well. Further recommendations will be made in the progress record as new information becomes available.
[2021-04-10] MEDS: dexameTHASONE 4 MG/ML 1ML VIAL (J1100 PER 1MG) IV SCH ×2 (09:50→20:47)
[2021-04-10] MEDS: ENOXAPARIN 80MG/0.8ML SYRINGE (J1650 PER 10MG) SC SCH ×2 (09:50→20:47)
[2021-04-10] MEDS: ASPIRIN 81 MG CHEW TABLET PO SCH (09:50)
[2021-04-10] MEDS: AMOXICILLIN 875 MG TAB PO SCH ×2 (09:50→20:47)
[2021-04-10] MEDS: LOSARTAN 50MG TABLET PO SCH (09:51)
[2021-04-10 12:00] VITALS: BP 136/63
--- NOTE | 2021-04-10 14:18 | IPNPDOC ---
Text Note Date of Service The patient was seen on 04/10/21. NOTE Subjective: Patient is on 40 L via Vapotherm, his heart rate under control. Patient continues to have intermittent dry cough. Patient continues to use CPAP overnight. Objective: GENERAL APPEARANCE: Morbidly obese male HEENT: no scleral icterus, no JVD, EOMI CARDIOVASCULAR:S1S2 with heart rate 65, regular LUNGS: Diminished bilaterally ABDOMEN: soft & not tender w palpitation MUSCULOSKELETAL: no cyanosis, no swelling INTEGUMENT: no generalized pallor NEUROLOGICAL: cranial nerve function from 2-12 intact intact, follows commands, speech not dysarthric Assessment/Plan Patient is 66 years old male with past medical history of type 2 diabetes, hypertension, depression, hypercholesterolemia, chronic left hip infection, history of cicatrizing conjunctivitis presented to the hospital with generalized weakness, cough, muscle ache and shortness of breath. Of note patient received 2 doses of Moderna vaccination in December. Patient stated that he developed symptoms around 1 week ago. On Wednesday patient was in urgent care and tested negative for COVID 19. In ER patient was found to have hypoxia with oxygen saturation low 80s, leukocytes count of 12.7, hemoglobin 12.8, lactic acid 2.3, creatinine 1.4, troponin negative. Chest x-ray showed Subtle bilateral lower lobe airspace disease cannot be excluded Problems (1) COVID-19 Labs according to COVID 19 protocol Continue Remdesevir 19 IV, dexamethasone IV pro calcitonin negative, blood culture negative Continue Vapotherm for now Follow podiatrist recommendation (2) Pneumonia Secondary to viral infection CTA negative for pulmonary emboli Chest x-ray 04/08/21 showed Extensive diffuse bilateral infiltrates have increased since the prior study c/w Incentive spirometry Inhalers (3) Acute hypoxemic respiratory failure Continue oxygen supplementation Patient encourage for prone position for 5-6 hours 2 to 3 times a day (4) Hypertension Continue home meds (5) Hyperlipidemia Continue statin (6) Diabetes mellitus Diabetes diet Insulin sliding scale (7) Prosthetic joint infection of left hip Continue amoxicillin by mouth New-onset atrial fibrillation with rapid ventricular rate Resolved Continue Metoprolol 50 mg every 8 hours. Heart rate under control Lopressor IV with parameters Full dose AC with lovenox VS,Fishbone, I+O VS, Fishbone, I+O Laboratory Tests 04/10/21 04:44 Vital Signs Date Time Temp Pulse Resp B/P (MAP) Pulse Ox O2 Delivery O2 Flow Rate FiO2 04/10/21 14:06 89 HVNI-Vapotherm 40.0 100 04/10/21 13:14 60 136/63 04/10/21 04:00 97.6 21 I&O- Last 24 Hours up to 6 AM 04/10/21 06:00 Intake Total 2070 ml Output Total 1875 ml Balance 195 ml SUSAN SANCHES DO Apr 10, 2021 14:18
[2021-04-10 16:00] VITALS: BP 116/53
[2021-04-10] MEDS: SODIUM CHLORIDE 0.9% INJ 10 ML SYR IV SCH (17:15)
[2021-04-10] MEDS ORDERED: POLYVINYL ALCOHOL OPHTH SOLN 15 ML(LIQUITEARS) OU PRN (18:30)
[2021-04-10 20:00] VITALS: BP 148/73
[2021-04-10] MEDS: PRAVASTATIN 20 MG TAB PO SCH (20:47)
[2021-04-10] MEDS: SODIUM CHLORIDE NASAL 0.65% SPRAY BTL (OCEAN) PRN (20:48)
[2021-04-11] VITALS: BP 136/63
[2021-04-11 04:00] VITALS: BP 143/66
[2021-04-11 04:41] LABS: BASO % 0.1 % (0.0-1.0); EOS % 0.1 % (0.0-3.0); HEMATOCRIT 35.2 % (42.0-52.0); HEMOGLOBIN 11.5 g/dl (13.5-17.5); LYMPH # 0.5 10^3/uL (1.5-5.0); LYMPH % 3.6 % (24.0-44.0); MEAN CORPUSCULAR HEMOGLOBIN 29.7 pg (27.0-33.0); MEAN CORPUSCULAR HGB CONC 32.7 g/dl (32.0-36.5); MONO # 0.3 10^3/uL (0.0-0.8); MONO % 2.2 % (2.0-8.0); NEUTROPHILS # 12.5 10^3/uL (1.5-8.5); NEUTROPHILS % 92.3 % (36.0-66.0); PLATELET COUNT, AUTOMATED 392 10^3/uL (150-450); RED BLOOD COUNT 3.87 10^6/uL (4.30-6.10); WHITE BLOOD COUNT 13.5 10^3/uL (4.0-10.0)
[2021-04-11 04:52] LABS: INR 1.12; PARTIAL THROMBOPLASTIN TIME 38.6 SECONDS (24.2-38.5); PROTHROMBIN TIME 14.7 SECONDS (12.5-14.3)
[2021-04-11 05:10] LABS: ALBUMIN 2.1 GM/DL (3.2-5.2); ALT/SGPT 28 U/L (12-78); BILIRUBIN,DIRECT 0.2 MG/DL (0.0-0.2); BILIRUBIN,TOTAL 0.3 MG/DL (0.2-1.0); BLOOD UREA NITROGEN 44 MG/DL (7-18); C REACTIVE PROTEIN QUANTITATIV 4.15 MG/DL (0.00-0.30); CALCIUM LEVEL 8.9 MG/DL (8.8-10.2); CARBON DIOXIDE LEVEL 26 MEQ/L (21-32); CHLORIDE LEVEL 107 MEQ/L (98-107); CPK CREATINE PHOSPHOKINASE 30 U/L (39-308); CREATININE FOR GFR 1.08 MG/DL (0.70-1.30); FERRITIN 460 NG/ML (26-388); GLOMERULAR FILTRATION RATE > 60.0 (>49); GLUCOSE, FASTING 207 MG/DL (70-100); LDH LACTATE DEHYDROGENASE 391 U/L (87-241); NT-PRO BNP 316 PG/ML (<125); POTASSIUM SERUM 4.5 MEQ/L (3.5-5.1); SODIUM LEVEL 141 MEQ/L (136-145); TOTAL PROTEIN 5.7 GM/DL (6.4-8.2); TROPONIN I < 0.02 NG/ML (< 0.10)
[2021-04-11] MEDS: METOPROLOL TART 50 MG TAB PO SCH ×3 (06:00→20:30)
[2021-04-11 08:00] VITALS: BP 146/65
[2021-04-11] MEDS: HumaLOG INSULIN (NovoLOG) PER UNIT SC SCH ×4 (08:29→20:28)
[2021-04-11] MEDS: dexameTHASONE 4 MG/ML 1ML VIAL (J1100 PER 1MG) IV SCH ×2 (08:30→20:30)
[2021-04-11] MEDS: ENOXAPARIN 80MG/0.8ML SYRINGE (J1650 PER 10MG) SC SCH ×2 (08:30→20:31)
[2021-04-11] MEDS: AMOXICILLIN 875 MG TAB PO SCH ×2 (08:30→20:31)
[2021-04-11] MEDS: LOSARTAN 50MG TABLET PO SCH (08:31)
[2021-04-11] MEDS: COSOPT OCUMETER PLUS 10ML (DORZOLAMIDE/TIMOLOL) OU SCH ×2 (08:31→20:32)
[2021-04-11] MEDS: ASPIRIN 81 MG CHEW TABLET PO SCH (08:32)
[2021-04-11] MEDS: OFLOXACIN 0.3 % (OCUFLOX) OPTH SOL 5ML OU SCH ×2 (08:32→20:32)
--- NOTE | 2021-04-11 10:44 | IPNPDOC ---
Text Note Date of Service The patient was seen on 04/11/21. NOTE Subjective: Patient stated that he feels better today. No fever or chills Objective: GENERAL APPEARANCE: Morbidly obese male HEENT: no scleral icterus, no JVD, EOMI CARDIOVASCULAR:S1S2 regular LUNGS: Diminished bilaterally ABDOMEN: soft & not tender w palpitation MUSCULOSKELETAL: no cyanosis, no swelling INTEGUMENT: no generalized pallor NEUROLOGICAL: cranial nerve function from 2-12 intact intact, follows commands, speech not dysarthric Assessment/Plan Patient is 66 years old male with past medical history of type 2 diabetes, hypertension, depression, hypercholesterolemia, chronic left hip infection, history of cicatrizing conjunctivitis presented to the hospital with generalized weakness, cough, muscle ache and shortness of breath. Of note patient received 2 doses of Moderna vaccination in December. Patient stated that he developed symptoms around 1 week ago. On Wednesday patient was in urgent care and tested negative for COVID 19. In ER patient was found to have hypoxia with oxygen saturation low 80s, leukocytes count of 12.7, hemoglobin 12.8, lactic acid 2.3, creatinine 1.4, troponin negative. Chest x-ray showed Subtle bilateral lower lobe airspace dise ase cannot be excluded Problems (1) COVID-19 Labs according to COVID 19 protocol Continue Remdesevir 19 IV, dexamethasone IV pro calcitonin negative, blood culture negative Inflammatory markers improved today Continue Vapotherm for now Follow residence leasing agent recommendation (2) Pneumonia Secondary to viral infection CTA negative for pulmonary emboli Chest x-ray 04/08/21 showed Extensive diffuse bilateral infiltrates have increased since the prior study c/w Incentive spirometry Inhalers (3) Acute hypoxemic respiratory failure Continue oxygen supplementation Patient encourage for prone position for 5-6 hours 2 to 3 times a day (4) Hypertension Continue home meds (5) Hyperlipidemia Continue statin (6) Diabetes mellitus Diabetes diet Insulin sliding scale (7) Prosthetic joint infection of left hip Continue amoxicillin by mouth New-onset atrial fibrillation with rapid ventricular rate Resolved Continue Metoprolol 50 mg every BID. Heart rate under control. I reduced the dose of metoprolol from 3 times a day to twice a day due to bradycardia Lopressor IV with parameters Full dose AC with lovenox VS,Fishbone, I+O VS, Fishbone, I+O Laboratory Tests 04/11/21 04:22 04/11/21 04:23 Vital Signs Date Time Temp Pulse Resp B/P (MAP) Pulse Ox O2 Delivery O2 Flow Rate FiO2 04/11/21 08:33 56 04/11/21 08:31 146/65 04/11/21 08:00 97.1 28 85 HVNI-Vapotherm 40.0 100 I&O- Last 24 Hours up to 6 AM 04/11/21 06:00 Intake Total 1860 ml Output Total 1350 ml Balance 510 ml SUSAN SANCHES DO Apr 11, 2021 10:44
[2021-04-11 12:00] VITALS: BP 131/59
--- NOTE | 2021-04-11 13:36 | IPN ---
CRITICAL CARE PROGRESS NOTE DATE: 04/11/2021 SUBJECTIVE: Patient was seen and examined this morning at bedside. He continues to report shortness of breath any time he gets up and moves around. He states his breathing feels better when he is sitting up in a chair. He does not currently feel short of breath. He has just finished eating breakfast. He did wear the CPAP last night, but notes he is having a difficult time maintaining a seal due to his [place]. He is planning to shave that off to get a better seal, so that the mask is more comfortable as well. Otherwise he has no new complaints today. OBJECTIVE: VITAL SIGNS: Temperature 97.1 with 24-hour T-max 98.1 degrees Fahrenheit, blood pressure 146/65, heart rate 56, respiratory rate 28, oxygen saturation 90% on Vapotherm at 40 liters per minute and 100% FIO2. PHYSICAL EXAMINATION: GENERAL: Patient appears comfortable, sitting up in a chair, in no acute distress. HEENT: Normocephalic, atraumatic. Moist mucous membranes. Fair dentition. Neck supple, Trachea midline. No JVD appreciated. No lymphadenopathy appreciated. RESPIRATORY: Lungs are diminished to auscultation bilaterally with scattered rhonchi bilaterally. No wheezing or rales. He is not using accessory muscles to breathe. CARDIOVASCULAR: Regular rate and rhythm. Normal S1 and S2 with no murmurs appreciated. 2+ peripheral pulses in the radial and dorsalis pedis arteries. He does have 1+ pitting edema bilateral lower extremities. GI: Obese, soft abdomen, which is non-distended and nontender. MUSCULOSKELETAL: No muscular atrophy noted. EXTREMITIES: Show edema as noted above. No cyanosis or clubbing. SKIN: No rash appreciated. NEUROLOGIC/PSYCHIATRIC: Patient is alert and oriented x3 to person, place and time. Mood and affect are appropriate. LABORATORY DATA: Sodium 141, potassium 4.5, chloride 107, bicarb 26, BUN 44, creatinine 1.08, glucose 207. White blood cell count 13.5, hemoglobin 11.5, hematocrit 35.2, platelet count 392,000. Troponin less than 0.02. AST 24, ALT 28. Albumin 2.1. Total protein 5.7. LDH 391. INR 1.12, PTT 38.6. INTAKE AND OUTPUT: Past 24-hours, intake of 1,660 mL and output of 900 mL with a net positive of 760 mL. Telemetry monitoring showed sinus rhythm with rate in the 70's. No new imaging or microbiology to review today. ASSESSMENT AND PLAN: This is a 66-year-old male who was admitted with hypoxia secondary to COVID-19 pneumonia. He continues to require supplemental oxygen with Vapotherm for his hypoxemia and CPAP only at night and with naps. He may have a degree of underlying DEBORAH, which has not yet been diagnosed versus obesity hypoventilation which may worsen when he is lying flat in bed at night. In either case, we will continue with the CPAP at night at the current setting of 10. I suspect he will need an outpatient sleep study when his clinical status is improved as he may have undiagnosed sleep apnea. He has had nocturnal pulse ox testing in the past, but has never had a formal sleep study. He remains on steroids day #7 with Decadron 6 mg b.i.d. He does have a persistent leukocytosis with a left shift, which is likely attributed to his steroids. He also has some hyperglycemia and is on sliding scale insulin AC and HS due to his history of diabetes mellitus. His glucose levels may also be elevated from the steroids and if these are not well controlled, he may require basal insulin at some point. Apparently we will continue to monitor his sliding scale insulin use. Additionally, he had converted into atrial fibrillation a few days ago and now remains in sinus rhythm. He remains on Metoprolol 50 mg, which has been decreased from every 8 hours to b.i.d. dosing as he has been bradycardic with a heart rate in the 50's. I suspect he will not need director long term care beta-wild therapy as his atrial fibrillation was probably induced by his hypoxemia. He continues on Lovenox for anticoagulation 80 mg b.i.d. At this point, we will not make any changes to his care today. Dr. Kirkpatrick: I have examined the patient and reviewed the critical elements of today's evaluation. The patient remains profoundly hypoxic from Covid-19 related pneumonia with ARDS and is requiring high flow Oxygen to maintain adequate saturations of oxygen. CPAP at night provides improvement in minute ventilation likely by overcoming small airway hysteresis. Inflammatory markers have improved suggesting that the Decadron is adequate though it is no doubt effecting the differential WBC and serum glucose. There is benefit gained from mobilization and we will ask nursing to encourage this. The case and diagnostic studies have been reviewed with the attending hospitalist service , ICU nursing team, and respiratory therapy. He remains critically ill and ICU care is appropriate. Ninety seven minutes was spent in the provision of bedside critical care and coordination among the care team, exclusive of any time spent for the performance of procedures. JESS
[2021-04-11 20:00] VITALS: BP 152/71
[2021-04-11] MEDS: PRAVASTATIN 20 MG TAB PO SCH (20:31)
[2021-04-11] MEDS: SODIUM CHLORIDE 0.9% INJ 10 ML SYR IV SCH (20:32)
[2021-04-11] MEDS: **NOTE PATIENT COMMENT** MISC XX SCH (20:52)
[2021-04-11] MEDS: LEVALBUTEROL HFA 45MCG/ACT 15 GM INHALER INH PRN (22:31)
[2021-04-12] VITALS: BP 129/58
[2021-04-12 04:00] VITALS: BP 106/53
[2021-04-12 04:54] LABS: BASO % 0.3 % (0.0-1.0); EOS % 0.1 % (0.0-3.0); HEMATOCRIT 41.9 % (42.0-52.0); LYMPH # 0.4 10^3/uL (1.5-5.0); LYMPH % 3.3 % (24.0-44.0); MEAN CORPUSCULAR HEMOGLOBIN 30.4 pg (27.0-33.0); MEAN CORPUSCULAR VOLUME 97.9 fl (80.0-96.0); MONO # 0.3 10^3/uL (0.0-0.8); MONO % 2.7 % (2.0-8.0); NEUTROPHILS % 91.8 % (36.0-66.0); PLATELET COUNT, AUTOMATED 302 10^3/uL (150-450); RED BLOOD COUNT 4.28 10^6/uL (4.30-6.10)
[2021-04-12 05:27] LABS: ALT/SGPT 32 U/L (12-78); BILIRUBIN,TOTAL 0.4 MG/DL (0.2-1.0); BLOOD UREA NITROGEN 45 MG/DL (7-18); CALCIUM LEVEL 8.5 MG/DL (8.8-10.2); CARBON DIOXIDE LEVEL 21 MEQ/L (21-32); CHLORIDE LEVEL 111 MEQ/L (98-107); CREATININE FOR GFR 0.94 MG/DL (0.70-1.30); GLOMERULAR FILTRATION RATE > 60.0 (>49); GLUCOSE, FASTING 197 MG/DL (70-100); POTASSIUM SERUM 4.7 MEQ/L (3.5-5.1); SODIUM LEVEL 141 MEQ/L (136-145); TOTAL PROTEIN 5.5 GM/DL (6.4-8.2)
--- NOTE | 2021-04-12 08:25 | IPNPDOC ---
Text Note Date of Service The patient was seen on 04/12/21. NOTE Hospitalist Progress Note Subjective: The patient was sleeping when I entered the room, but he was easily aroused. He is currently wearing noninvasive positive pressure ventilation, which apparently he only wears while sleeping. He was able to sit up to the side of the bed which did not seem to cause him to become overtly short of breath. He reports that besides feeling weak he is overall feeling much better, and his breathing seems to be better as well. The remainder of his review systems is negative. Objective: General: Awake, alert, oriented 3. Not in any acute distress. HEENT: Head normocephalic, atraumatic, sclera are nonicteric. Hearing is grossly intact to conversation. Respiratory: Clear to auscultation bilaterally with no wheezes, rales, or rhonchi. Cardiovascular: Regular rate and rhythm, with no rubs, gallops, or murmur. Abdomen: Soft, nontender, obese, nondistended. Bowel sounds present. Extremities: 2+ pulses in the radial bilaterally. No evidence of clubbing or cyanosis. Assessment: COVID-19 Pneumonia Acute hypoxemic respiratory failure Hypertension Hyperlipidemia Diabetes mellitus type 2 Prosthetic joint infection of the left hip New onset atrial fibrillation with rapid ventricular rate, now resolved, suspected to be secondary to strain on lungs tertiary to Covid 19 pneumonia Plan: The patient continued to be bradycardic in the 50s through the night, and had a rate of 48 when I entered the room, his dose of metoprolol tartrate was lowered yesterday, I will completely discontinue it at this time since it is suspected that his atrial fibrillation with rapid ventricular rate was secondary to the strain imposed on his heart and lungs by Covid 19 pneumonia. This also appears to be improving clinically. Continue with Remdesevir, dexamethasone, and NIPPV per recommendations from pulmonology. Otherwise, continue the remainder of his home medications for his chronic medical conditions, no additional changes are made in his medications at this time. VS,Fishbone, I+O VS, Fishbone, I+O Laboratory Tests 04/12/21 04:43 Vital Signs Date Time Temp Pulse Resp B/P (MAP) Pulse Ox O2 Delivery O2 Flow Rate FiO2 04/12/21 05:25 96 NIPPV (BIPAP/CPAP) 40 6/12/21 04:00 97.6 55 26 106/53 (70) 04/11/21 20:00 30.0 I&O- Last 24 Hours up to 6 AM 04/12/21 06:00 Intake Total 1080 ml Output Total 1225 ml Balance -145 ml MATIAS CARPENTER 12, 2021 08:25
[2021-04-12 08:26] VITALS: BP 146/62
[2021-04-12] MEDS: dexameTHASONE 4 MG/ML 1ML VIAL (J1100 PER 1MG) IV SCH ×2 (08:32→20:18)
[2021-04-12] MEDS: LOSARTAN 50MG TABLET PO SCH (08:33)
[2021-04-12] MEDS: ASPIRIN 81 MG CHEW TABLET PO SCH (08:33)
[2021-04-12] MEDS: AMOXICILLIN 875 MG TAB PO SCH ×2 (08:33→20:17)
[2021-04-12] MEDS: HumaLOG INSULIN (NovoLOG) PER UNIT SC SCH ×4 (08:34→20:16)
[2021-04-12] MEDS: ENOXAPARIN 80MG/0.8ML SYRINGE (J1650 PER 10MG) SC SCH ×2 (08:34→20:17)
[2021-04-12] MEDS: COSOPT OCUMETER PLUS 10ML (DORZOLAMIDE/TIMOLOL) OU SCH ×2 (08:34→20:18)
[2021-04-12] MEDS: OFLOXACIN 0.3 % (OCUFLOX) OPTH SOL 5ML OU SCH ×2 (08:35→20:18)
[2021-04-12] MEDS: PANTOPRAZOLE 40MG TAB (PROTONIX) PO SCH (08:44)
--- NOTE | 2021-04-12 08:48 | CCN ---
CRITICAL CARE NOTE DATE: 04/12/2021 SUBJECTIVE: The patient is seen in the intensive care unit. This is hospital day #7. He is somewhat less hypoxemic this morning and able to tolerate a reduced oxygen delivery via noninvasive ventilation. Rested better through the night. OBJECTIVE: VITAL SIGNS: Temperature 97.6, pulse rate 55, respirations 26, blood pressure 106/53. Oxygen saturation 96% on 40% delivered oxygen. INTAKE AND OUTPUT: For the past 24 hours, 1160 in and 1675 out. Since midnight, 120 in and 0 out. GENERAL APPEARANCE: At bedside, he is ill-appearing. HEENT: His oral mucosa is pink. His conjunctivae are erythematous. NECK: Supple. No meningismus. No stridor. No adenopathy. HEART: Regular without appreciable murmur. LUNGS: Breath sounds are coarse in the bases. There are some rales. No rhonchi. No wheezes. ABDOMEN: Soft and obese. EXTREMITIES: Show no significant edema. Peripheral pulses are palpable. Nails show no clubbing. DIAGNOSTIC STUDIES: His CBC shows a white count of 12, hemoglobin 13, hematocrit 41.9, platelet count 302,000. Differential white cell count shows 91.8% neutrophils. The electrolytes are sodium 141, potassium 4.7, chloride 111, CO2 of 21, BUN 45, creatinine 0.94, glucose 197. Calcium is 8.5. Bilirubin 0.4, AST 35, ALT 32. His albumin is 2. MEDICATION REVIEW: He is receiving Xopenex q. 6 p.r.n., insulin coverage, amoxicillin 875 b.i.d. (chronic dosing), aspirin 81 mg a day, Timolol eye drops, losartan 100 mg daily, levofloxacin eye drops, Pravachol 40 mg at h.s., Apresoline 10 mg q. 6 as needed for hypertension, dexamethasone 6 mg b.i.d., Lovenox 80 mg b.i.d., Lopressor 50 b.i.d., and a Lidoderm patch. ASSESSMENT AND PLAN: 1. The primary problem requiring critical attention is acute hypoxic respiratory failure secondary to COVID pneumonia with acute respiratory distress syndrome (ARDS). His oxygenation need has improved over the past 24 hours. He has already completed a course of remdesivir. His inflammatory markers at last check were improving on Decadron b.i.d. We will recheck a chest x-ray and C-reactive protein. 2. Hypercoagulable state of COVID. The patient is on full dose Lovenox. 3. Relative bradycardia. Will discontinue the metoprolol. 4. Atrial fibrillation. I suspect that this episode was secondary to hypoxemia and he has had no further episodes. 5. Protein-calorie malnutrition. The patient is eating somewhat better. Indices of nutrition remain lagging behind. 6. Autoimmune conjunctivitis. We will consider reinstituting erythromycin gel for his eyes. 7. Ulcer prophylaxis. As the patient is on noninvasive ventilation receiving steroids and anticoagulation therapy at high dose, I believe he is at a significant risk. We will start Protonix daily. 8. Glycemic control is being addressed with subcutaneous insulin. His condition remains critical. I have reviewed the case with the ICU nursing team and the attending hospitalist. Plans of care for the day were reviewed. His prognosis remains guarded. CRITICAL CARE TIME: 72 minutes spent in the provision of bedside critical care and coordination.
[2021-04-12] MEDS ORDERED: ERYTHROMYCIN OPHTH OINT OU PRN (10:45)
[2021-04-12 12:43] VITALS: BP 132/61
[2021-04-12 17:04] VITALS: BP 127/60
[2021-04-12] MEDS: SODIUM CHLORIDE 0.9% INJ 10 ML SYR IV SCH (17:26)
[2021-04-12 20:00] VITALS: BP 141/88
[2021-04-12] MEDS: PRAVASTATIN 20 MG TAB PO SCH (20:17)
[2021-04-12] MEDS: LIDOCAINE 5% (LIDODERM) PATCH TD PRN (20:20)
[2021-04-12] MEDS: SODIUM CHLORIDE NASAL 0.65% SPRAY BTL (OCEAN) PRN (20:31)
[2021-04-12] MEDS: **NOTE PATIENT COMMENT** MISC XX SCH (20:31)
[2021-04-12] MEDS: LEVALBUTEROL HFA 45MCG/ACT 15 GM INHALER INH PRN (23:48)
[2021-04-13] VITALS: BP 131/60
[2021-04-13 04:31] LABS: BASO % 0.2 % (0.0-1.0); EOS % 0.1 % (0.0-3.0); HEMATOCRIT 35.4 % (42.0-52.0); HEMOGLOBIN 11.8 g/dl (13.5-17.5); LYMPH # 0.6 10^3/uL (1.5-5.0); LYMPH % 3.5 % (24.0-44.0); MEAN CORPUSCULAR HEMOGLOBIN 30.1 pg (27.0-33.0); MEAN CORPUSCULAR HGB CONC 33.3 g/dl (32.0-36.5); MEAN CORPUSCULAR VOLUME 90.3 fl (80.0-96.0); MONO # 0.4 10^3/uL (0.0-0.8); MONO % 2.4 % (2.0-8.0); NEUTROPHILS # 15.2 10^3/uL (1.5-8.5); NEUTROPHILS % 91.6 % (36.0-66.0); PLATELET COUNT, AUTOMATED 370 10^3/uL (150-450); RED BLOOD COUNT 3.92 10^6/uL (4.30-6.10); WHITE BLOOD COUNT 16.7 10^3/uL (4.0-10.0)
[2021-04-13 05:05] LABS: ALBUMIN 2.1 GM/DL (3.2-5.2); ALT/SGPT 35 U/L (12-78); BILIRUBIN,TOTAL 0.3 MG/DL (0.2-1.0); BLOOD UREA NITROGEN 38 MG/DL (7-18); C REACTIVE PROTEIN QUANTITATIV 1.37 MG/DL (0.00-0.30); CALCIUM LEVEL 9.4 MG/DL (8.8-10.2); CARBON DIOXIDE LEVEL 25 MEQ/L (21-32); CHLORIDE LEVEL 109 MEQ/L (98-107); CREATININE FOR GFR 1.07 MG/DL (0.70-1.30); GLOMERULAR FILTRATION RATE > 60.0 (>49); GLUCOSE, FASTING 212 MG/DL (70-100); POTASSIUM SERUM 4.3 MEQ/L (3.5-5.1); SODIUM LEVEL 141 MEQ/L (136-145); TOTAL PROTEIN 6.4 GM/DL (6.4-8.2)
[2021-04-13 08:27] VITALS: BP 148/70
[2021-04-13] MEDS: ASPIRIN 81 MG CHEW TABLET PO SCH (08:29)
[2021-04-13] MEDS: AMOXICILLIN 875 MG TAB PO SCH ×2 (08:29→20:51)
[2021-04-13] MEDS: LOSARTAN 50MG TABLET PO SCH (08:30)
[2021-04-13] MEDS: ENOXAPARIN 80MG/0.8ML SYRINGE (J1650 PER 10MG) SC SCH ×2 (08:30→20:52)
[2021-04-13] MEDS: dexameTHASONE 4 MG/ML 1ML VIAL (J1100 PER 1MG) IV SCH ×2 (08:30→20:52)
[2021-04-13] MEDS: PANTOPRAZOLE 40MG TAB (PROTONIX) PO SCH (08:30)
[2021-04-13] MEDS: COSOPT OCUMETER PLUS 10ML (DORZOLAMIDE/TIMOLOL) OU SCH ×2 (08:31→20:51)
[2021-04-13] MEDS: OFLOXACIN 0.3 % (OCUFLOX) OPTH SOL 5ML OU SCH ×2 (08:31→20:51)
[2021-04-13] MEDS: HumaLOG INSULIN (NovoLOG) PER UNIT SC SCH ×4 (08:31→20:50)
--- NOTE | 2021-04-13 08:49 | REP ---
INDICATION: COVID pn. COMPARISON: Comparison chest x-ray April 08, 2021. TECHNIQUE: Portable upright AP chest radiograph. FINDINGS: EKG monitoring electrodes are seen. Patchy infiltrates persist in the upper lobes bilaterally and in the right lower lobe. There are some increased markings in the left lower lobe as well. Pattern is similar the compared to the more April 05, 2021 prior recent prior study and appears improved study of April 08, 2021.. No new infiltrates are seen. IMPRESSION: Patchy bilateral predominantly alveolar infiltrates consistent with viral pneumonia. Pattern is a somewhat improved from the April 08, 2021 study. <Electronically signed by Gunnar Avina > 04/13/21 0811
--- NOTE | 2021-04-13 11:49 | IPNPDOC ---
Text Note Date of Service The patient was seen on 04/13/21. NOTE Hospitalist Progress Note Subjective: The patient reports that his breathing seems to be getting easier day by day, he does not have any specific complaints at this time. He reports that he slept well through the night. Other than feeling somewhat weak from his disease and hospitalization, the remainder of his review systems is negative. Objective: General: Awake, alert, oriented 3. Not in any acute distress. HEENT: Head normocephalic, atraumatic, sclera are nonicteric. Hearing is grossly intact to conversation. Respiratory: Clear to auscultation bilaterally with no wheezes, rales, or rhonchi. Cardiovascular: Regular rate and rhythm, with no rubs, gallops, or murmur. Abdomen: Soft, nontender, obese, nondistended. Bowel sounds present. Extremities: 2+ pulses in the radial bilaterally. No evidence of clubbing or cyanosis. 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 Chest x-ray today appears to have less consolidation than yesterday. Input from pulmonology is greatly appreciated. -Bradycardia has now resolved with the discontinuation of metoprolol. He has not had any recurrence of atrial fibrillation. -Agree with the initiation of ulcer prophylaxis -Continue sliding scale insulin for management of diabetes -Continue with full therapeutic dose Lovenox VS,Fishbone, I+O VS, Fishbone, I+O Laboratory Tests 04/13/21 04:20 Vital Signs Date Time Temp Pulse Resp B/P (MAP) Pulse Ox O2 Delivery O2 Flow Rate FiO2 04/13/21 11:16 91 HVNI-Vapotherm 25.0 70 04/13/21 08:30 148/70 04/13/21 08:27 77 04/13/21 00:00 97.1 24 I&O- Last 24 Hours up to 6 AM 04/13/21 06:00 Intake Total 1020 ml Output Total 1700 ml Balance -680 ml MATIAS CARPENTER DO Apr 13, 2021 11:49
--- NOTE | 2021-04-13 12:41 | CCN ---
CRITICAL CARE NOTE DATE: 04/13/2021 SUBJECTIVE: The patient is seen in the intensive care unit. This is hospital day #8, intensive care unit (ICU) day #8. He is well-resting this morning having tolerated noninvasive ventilation through the night. Oxygen requirement during pressure therapy was 40%, now on Vapotherm. He is saturating at 91% on 70% oxygen. OBJECTIVE: VITAL SIGNS: Temperature 97, maximum temperature (T-max) for the past 24 hours 98, pulse rate 70, respirations 24, blood pressure 148/70. INTAKE AND OUTPUT: For the past 24 hours: 1080 in, 1400 out. Since midnight, 60 in, 300 out. At the bedside, he is not in respiratory distress at this point. His mucosa is pink. Neck is supple. No obvious jugular venous distention. Neck is somewhat carrizales. His cornea appear a little less irritated today. HEART SOUNDS: Regular without appreciable murmur. BREATH SOUNDS: Remain diminished bilaterally. There is no accessory muscle engagement. There are crepitant bibasilar rales. ABDOMEN: Soft and obese. EXTREMITIES: Show scattered ecchymosis from venous puncture sites. No significant peripheral edema. DIAGNOSTIC STUDIES: White cell count is up to 16.7 today, hemoglobin is down slightly at 11.8, hematocrit 35.4, platelet count is 370,000. His differential white cell count showed 91.6% neutrophils. Electrolytes show sodium 141, potassium 4.3, chloride 109, CO2 25, BUN 38, creatinine is up slightly at 1.08, glucose 212, calcium 9.4. Bilirubin 0.3, AST and ALT are normal at 28 and 35 respectively and the alkaline phosphatase is 52. His C-reactive protein has decreased now to 1.37 from 4.15. Albumin is down slightly at 12.1. Chest imaging was reviewed, as was the report. There is significantly improved aeration bilaterally. MEDICATIONS REVIEW: He is receiving amoxicillin chronically for hip prosthesis infection, Decadron 6 mg twice a day, Lovenox 80 mg every 12 hours and Protonix. Beta blockers have been stopped and he is receiving losartan for hypertension. THE PRIMARY PROBLEMS REQUIRING CRITICAL ATTENTION: 1. Acute hypoxic respiratory failure secondary to COVID-19 pneumonia with acute respiratory distress syndrome (ARDS). We are weaning oxygen as able. He will continue use of noninvasive ventilation at sleep. His positive test was on April 05, 2021 and isolation is required for 20 days, according to infection control. 2. Hypercoagulable state related to COVID-19. The patient is on full dose Lovenox. 3. Bradycardia. Resolved. 4. Atrial fibrillation. This was episodic and occurred during hypoxemia. He has had no further episodes. 5. Protein calorie malnutrition. The patient's appetite is improving. 6. Autoimmune conjunctivitis. The patient is now better with erythromycin ointment. He is scheduled for IgG infusions later in the week. 7. Deep venous thrombosis (DVT) prophylaxis is being addressed with Lovenox. 8. Ulcer prophylaxis is being addressed with Protonix. The patient's condition does remain critical and ICU care is appropriate. I have reviewed the case with the attending hospitalist service and the ICU care team. Plans of care for the day have been reviewed. Sixty-seven minutes was spent in the provision of bedside critical care and coordination, excluding any time for the performance of procedures.
[2021-04-13 12:43] VITALS: BP 121/59
[2021-04-13 17:12] VITALS: BP 138/63
[2021-04-13 18:54] VITALS: BP 129/56
[2021-04-13] MEDS: METOPROLOL 5 MG/5 ML VIAL IV SCH ×3 (19:05→19:30)
[2021-04-13] MEDS: METOPROLOL TART 25 MG TABLET PO SCH (19:42)
[2021-04-13 20:00] VITALS: BP 122/58
[2021-04-13] MEDS: PRAVASTATIN 20 MG TAB PO SCH (20:51)
[2021-04-13] MEDS: **NOTE PATIENT COMMENT** MISC XX SCH (20:53)
[2021-04-14] VITALS: BP 127/54
[2021-04-14 04:00] VITALS: BP 127/54
[2021-04-14 05:47] LABS: ALBUMIN 2.1 GM/DL (3.2-5.2); ALT/SGPT 33 U/L (12-78); BILIRUBIN,TOTAL 0.3 MG/DL (0.2-1.0); BLOOD UREA NITROGEN 39 MG/DL (7-18); CALCIUM LEVEL 8.9 MG/DL (8.8-10.2); CARBON DIOXIDE LEVEL 27 MEQ/L (21-32); CHLORIDE LEVEL 109 MEQ/L (98-107); CREATININE FOR GFR 1.15 MG/DL (0.70-1.30); GLOMERULAR FILTRATION RATE > 60.0 (>49); GLUCOSE, FASTING 212 MG/DL (70-100); POTASSIUM SERUM 4.9 MEQ/L (3.5-5.1); SODIUM LEVEL 143 MEQ/L (136-145); TOTAL PROTEIN 5.6 GM/DL (6.4-8.2)
[2021-04-14] MEDS: HumaLOG INSULIN (NovoLOG) PER UNIT SC SCH ×4 (07:30→20:42)
[2021-04-14 08:00] VITALS: BP 124/58
[2021-04-14] MEDS: ASPIRIN 81 MG CHEW TABLET PO SCH (08:18)
[2021-04-14] MEDS: dexameTHASONE 4 MG/ML 1ML VIAL (J1100 PER 1MG) IV SCH ×2 (08:19→20:40)
[2021-04-14] MEDS: ENOXAPARIN 80MG/0.8ML SYRINGE (J1650 PER 10MG) SC SCH ×2 (08:19→20:41)
[2021-04-14] MEDS: AMOXICILLIN 875 MG TAB PO SCH ×2 (08:19→20:41)
[2021-04-14] MEDS: PANTOPRAZOLE 40MG TAB (PROTONIX) PO SCH (08:19)
[2021-04-14] MEDS: LOSARTAN 50MG TABLET PO SCH (08:19)
[2021-04-14] MEDS: COSOPT OCUMETER PLUS 10ML (DORZOLAMIDE/TIMOLOL) OU SCH ×2 (08:19→20:42)
[2021-04-14] MEDS: OFLOXACIN 0.3 % (OCUFLOX) OPTH SOL 5ML OU SCH ×2 (08:20→20:43)
[2021-04-14] MEDS: METOPROLOL TART 25 MG TABLET PO SCH (08:58)
[2021-04-14] MEDS ORDERED: FUROSEMIDE 20MG/2ML VIAL (J1940) IV ONE (09:30)
[2021-04-14 12:01] VITALS: BP 125/57
--- NOTE | 2021-04-14 15:43 | IPNPDOC ---
Text Note Date of Service The patient was seen on 04/14/21. NOTE Hospitalist Progress Note Subjective: He is once again in good spirits. He reports that he slept quite well last night. He did have an episode of tachycardia last night, apparently all he attempted to do a stand up and move his straight across the room. He became fatigued, but after sitting in the chair he remained asymptomatic throughout the entire time that he was tachycardic. He received 2 doses of IV Lopressor which brought his heart rate down quite nicely. Then he was given 1 dose of oral meto prolol tartrate 25 mg, and his heart rate has remained low throughout the evening, as a matter fact it has even been slightly bradycardic. Otherwise, he does not have any other complaints at this time, and the remainder of his review systems is negative. Objective: General: Awake, alert, oriented 3. Not in any acute distress. HEENT: Head normocephalic, atraumatic, sclera are nonicteric. Hearing is grossly intact to conversation. Respiratory: Clear to auscultation bilaterally with no wheezes, rales, or rhonchi. He was wearing the NIPPV mask during my evaluation because he had just woken up. Cardiovascular: Regular rate and rhythm, with no rubs, gallops, or murmur. Abdomen: Soft, nontender, obese, nondistended. Bowel sounds present. Extremities: 2+ pulses in the radial bilaterally. No evidence of clubbing or cyanosis. 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 Oxygen requirements continued to trend down which is encouraging. Input from pulmonology is greatly appreciated. -And patient had an episode of narrow complex tachycardia yesterday evening. It looked as though he had P waves, therefore this could be sinus tachycardia. He was given 2 doses of IV metoprolol, and then a single dose of PO 25 mg metoprolol tartrate. His heart rate this morning is in the 50s. I will put in a scheduled dose metoprolol tartrate 12.5 mg twice a day, however will have the restriction that should not be given unless he has a heart rate greater than 100, therefore is hopefully he will not require any more doses of this. His tachycardia suspected to be secondary to acute stress put up on the heart by his pulmonary disease. -Continue GI prophylaxis -Continue sliding scale insulin for management of diabetes -Continue with full therapeutic dose Lovenox VS,Fishbone, I+O VS, Fishbone, I+O Laboratory Tests 04/14/21 05:11 Vital Signs Date Time Temp Pulse Resp B/P (MAP) Pulse Ox O2 Delivery O2 Flow Rate FiO2 04/14/21 12:01 98.2 61 18 125/57 (79) 89 High Flow Cannula 8.0 04/14/21 04:00 40 I&O- Last 24 Hours up to 6 AM 04/14/21 06:00 Intake Total 960 ml Output Total 900 ml Balance 60 ml MATIAS CARPENTER DO Apr 14, 2021 15:43
[2021-04-14 16:02] VITALS: BP 122/58
--- NOTE | 2021-04-14 16:26 | CCN ---
CRITICAL CARE NOTE DATE: 04/14/2021 SUBJECTIVE: Patient is seen and examined this morning at bedside. He states his shortness of breath is about the same. He is feeling well while sitting down but experiences shortness of breath anytime he gets up out of his chair. He is using the CPAP at night and is currently on high flow nasal cannula this morning. He is not proning in bed but is trying to lay on either side. He did have an episode of atrial fibrillation last night which was treated with IV metoprolol, and he continues on oral metoprolol. He states he was feeling palpitations during the episode but has been feeling well this morning. OBJECTIVE: VITAL SIGNS: Temperature 97.8 degrees Fahrenheit oral, heart rate 72, respiratory rate 22, blood pressure 124/58, saturating 91% on 10 liters per minute via high flow nasal cannula. GENERAL: Patient is sitting up in a chair, appears comfortable, in no acute distress. HEENT: Normocephalic/atraumatic. Moist mucous membranes. NECK: Supple. No lymphadenopathy. HEART: Regular rate and rhythm. No murmurs appreciated. LUNGS: Breath sounds are diminished bilaterally. No wheezing, rhonchi, or rales appreciated. Equal air entry bilaterally. ABDOMEN: Soft and obese. Nontender and nondistended. EXTREMITIES: 2+ bilateral pitting edema in the lower extremities extending up almost to the knees. NEUROLOGIC/PSYCH: Alert and oriented x3. Normal mood and affect. LABORATORY DATA: Sodium 143, potassium 4.9, chloride 109, bicarb 27, BUN 39, creatinine 1.15, glucose 212, calcium 8.9. IMAGING: Chest x-ray obtained yesterday, 04/13/2021, shows improvement of bilateral infiltrates. ASSESSMENT AND PLAN: A 66-year-old male who presented with worsening shortness of breath and found to be positive for COVID-19. Admitted to the ICU for acute hypoxic respiratory failure secondary to COVID-19 pneumonia. 1. Acute hypoxic respiratory failure secondary to COVID-19 pneumonia. His supplemental oxygen requirements are improving, and he is off of Vapotherm this morning and doing well on high flow nasal cannula. He has completed a course of Remdesivir. He continues on IV steroids with Decadron, and we will continue for a full 14 day course of steroids. He is also on full strength Lovenox 80 mg b.i.d. for hypercoagulability. We will have PT and OT see him today to help with his functional status and get him moving. He was encouraged to continue using incentive spirometry as well. We will recheck a CBC and CRP tomorrow as those were not ordered for this morning. 2. Lower extremity edema. Patient does not have a history of heart failure and is not on diuretics at home. We will give him a single dose of Lasix today to help with the edema. Likely this is due to his acute illness and receiving fluids while hospitalized. His renal function is currently stable. We will continue to monitor his BMP daily. 3. Paroxysmal atrial fibrillation. Patient did have another episode of atrial fibrillation last night requiring IV metoprolol. He continues on oral metoprolol 25 mg b.i.d., and he is currently in sinus rhythm. He will continue to be monitored on telemetry. Likely these episodes of atrial fibrillation are related to his acute illness and hypoxic state. He is currently on anticoagulation with Lovenox 80 mg b.i.d. as well. He does not have a history of atrial fibrillation prior to this hospitalization that he is aware of. 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 He is also receiving some erythromycin topical ointment here to help with irritation. Currently he reports being asymptomatic. 5. 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 Patient continues on oral amoxicillin daily for prophylaxis. 6. Protein-calorie malnutrition. Patient is tolerating regular diet and reports good appetite. 7. Suspected DEBORAH. Patient is currently using CPAP at night but does not have a formal diagnosis of sleep apnea nor has he ever had a formal sleep study. Likely he will require outpatient sleep study after his acute infection has improved and he is discharged from the hospital. Currently he will continue on CPAP at night and during naps while hospitalized. 8. Diabetes mellitus. Continue sliding scale insulin before meals and at bedtime. He has had some persistent hyperglycemia likely due to the steroids. Currently his glucose levels are better controlled today. 9. DVT prophylaxis. He is on Lovenox as addressed above. 10. GI prophylaxis. He has been started on Protonix due to continued steroid use. CODE STATUS: Patient remains a full code. Total critical care time spent not including any procedures approx 40 mins. I, Cindy Vera, have conducted an independent examination and history of the patient and agree with the above plan as detailed by the resident and discussed during rounds. MTDD
[2021-04-14 20:00] VITALS: BP 146/57
[2021-04-14] MEDS: PRAVASTATIN 20 MG TAB PO SCH (20:42)
[2021-04-14] MEDS: METOPROLOL TART 12.5 MG PER 1/2 TAB PO SCH (20:43)
[2021-04-14] MEDS: **NOTE PATIENT COMMENT** MISC XX SCH (20:43)
[2021-04-15] VITALS: BP 106/48
[2021-04-15 04:00] VITALS: BP 147/78
[2021-04-15 05:16] LABS: BASO % 0.1 % (0.0-1.0); EOS % 0.1 % (0.0-3.0); HEMATOCRIT 37.3 % (42.0-52.0); LYMPH # 0.5 10^3/uL (1.5-5.0); LYMPH % 3.3 % (24.0-44.0); MEAN CORPUSCULAR HGB CONC 32.2 g/dl (32.0-36.5); MEAN CORPUSCULAR VOLUME 93.3 fl (80.0-96.0); MONO # 0.3 10^3/uL (0.0-0.8); MONO % 1.9 % (2.0-8.0); NEUTROPHILS # 14.4 10^3/uL (1.5-8.5); NEUTROPHILS % 92.4 % (36.0-66.0); PLATELET COUNT, AUTOMATED 359 10^3/uL (150-450); WHITE BLOOD COUNT 15.6 10^3/uL (4.0-10.0)
[2021-04-15 05:40] LABS: ALBUMIN 2.2 GM/DL (3.2-5.2); ALT/SGPT 36 U/L (12-78); BILIRUBIN,TOTAL 0.4 MG/DL (0.2-1.0); BLOOD UREA NITROGEN 51 MG/DL (7-18); CALCIUM LEVEL 9.6 MG/DL (8.8-10.2); CARBON DIOXIDE LEVEL 28 MEQ/L (21-32); CHLORIDE LEVEL 106 MEQ/L (98-107); CREATININE FOR GFR 1.25 MG/DL (0.70-1.30); GLOMERULAR FILTRATION RATE > 60.0 (>49); GLUCOSE, FASTING 256 MG/DL (70-100); POTASSIUM SERUM 5.1 MEQ/L (3.5-5.1); SODIUM LEVEL 138 MEQ/L (136-145); TOTAL PROTEIN 6.2 GM/DL (6.4-8.2)
[2021-04-15 08:00] VITALS: BP 135/58
[2021-04-15] MEDS: dexameTHASONE 4 MG/ML 1ML VIAL (J1100 PER 1MG) IV SCH ×2 (08:03→19:37)
[2021-04-15] MEDS: HumaLOG INSULIN (NovoLOG) PER UNIT SC SCH ×4 (08:03→20:04)
[2021-04-15] MEDS: ENOXAPARIN 80MG/0.8ML SYRINGE (J1650 PER 10MG) SC SCH ×2 (08:06→19:37)
[2021-04-15] MEDS: LOSARTAN 50MG TABLET PO SCH (08:07)
[2021-04-15] MEDS: OFLOXACIN 0.3 % (OCUFLOX) OPTH SOL 5ML OU SCH ×2 (08:07→19:39)
[2021-04-15] MEDS: ASPIRIN 81 MG CHEW TABLET PO SCH (08:07)
[2021-04-15] MEDS: AMOXICILLIN 875 MG TAB PO SCH ×2 (08:07→19:38)
[2021-04-15] MEDS: PANTOPRAZOLE 40MG TAB (PROTONIX) PO SCH (08:07)
[2021-04-15] MEDS: COSOPT OCUMETER PLUS 10ML (DORZOLAMIDE/TIMOLOL) OU SCH ×2 (08:08→19:39)
[2021-04-15] MEDS: METOPROLOL TART 12.5 MG PER 1/2 TAB PO SCH ×2 (08:08→19:38)
[2021-04-15] MEDS ORDERED: FUROSEMIDE 40MG/4ML VIAL (J1940) IV ONE (11:00)
--- NOTE | 2021-04-15 11:07 | IPNPDOC ---
Text Note Date of Service The patient was seen on 04/15/21. NOTE Subjective: Patient was seen and examined this morning at bedside. He tells me his breathing feels better he continues to use CPAP at night he is no longer Vapotherm now on 6 L of high flow oxygen. Feels his shortness of breath is mostly on exertion. Denies fevers or chills. No acute overnight events reported to me. Objective: Constitutional: Awake and alert, in no apparent distress sitting upright in chair. ENT: Sclera are clear. Mucosa is moist. Respiratory: Lungs diminished bilaterally fair air entry. No respiratory distress. No use of accessory muscles. on 6L high flow o2. Cardiovascular: RRR S1 and S2 are normal, no murmur Gastrointestinal: Abdomen is soft, non distended, non tender, BS present. Musculoskeletal: Some mild lower extremity pitting edema Neurologic: No focal neurological deficit. Mental Status: A&O x3, normal affect Skin: No visible rashes Assessment: 66 years old male with past medical history of type 2 diabetes, hypertension, depression, hypercholesterolemia, chronic left hip infection, history of cicatrizing conjunctivitis with Acute hypoxic respiratory failure secondary to COVID-19 pneumonia # Acute hypoxic respiratory failure secondary to COVID-19 pneumonia: continues to require NIPPV at night, but was downgraded from Vapotherm to 6L high flow oxygen during the day and is saturating well. Oxygen requirements continued to trend down which is encouraging. Completed course of remdesivir. Continue IV steroids for 14 days (08/14) # Hypercoagulable state related to COVID-19: The patient is on full dose Lovenox. # LE edema: no hx of CHF, could be dependent edema from acute illness. Given 1 dose lasix today. Monitor. # Suspected underlying DEBORAH: not formally diagnosed. OP Sleep study. CPAP for now while inpatient. # Paroxysmal Atrial fibrillation. Episodic and occurred during hypoxemia. Otherwise periods of bradycardia so not on bb. # Ocular cicatrizing pemphigoid: Scheduled for IgG infusions end of the week. # DM: ISS. Frequent Accu-Cheks. Hypoglycemic precautions. # Hypertension: Continue home meds. 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
[2021-04-15 12:00] VITALS: BP 162/70
--- NOTE | 2021-04-15 12:03 | CCN ---
CRITICAL CARE NOTE DATE: 04/15/2021 SUBJECTIVE: Patient is seen and examined this morning at bedside. He states that he is feeling well at rest and using the continuous positive airway pressure (CPAP) at night. He is not having any issues using the CPAP. He does still notice some shortness of breath when up moving around but otherwise feels well sitting in a chair. He is eating without any issues. No overnight events. He has continued to be in sinus rhythm on telemetry. OBJECTIVE: VITAL SIGNS: Afebrile, temperature 97.3 degrees Fahrenheit oral, heart rate 57, respiratory rate 21, blood pressure 135/58, saturating 94% on 6 liters via high-flow nasal cannula. GENERAL: Patient appears comfortable, sitting up in a chair in no acute distress. HEENT: Normocephalic, atraumatic. Moist mucous membranes. NECK: Supple. No lymphadenopathy. HEART: Regular rate and rhythm. No murmurs appreciated. LUNGS: Breath sounds are diminished bilaterally. No wheezing, rhonchi, or rales appreciated. Equal air entry bilaterally. ABDOMEN: Soft and obese. Nontender, nondistended. Bowel sounds present. EXTREMITIES: Pitting edema 2+ in the lower extremities, extending up to the midcalf bilaterally. NEUROLOGIC/PSYCHIATRIC: Alert and oriented times three. Normal mood and affect. LABORATORY DATA: CBC shows white blood cell count 15.6, hemoglobin 12.0, hematocrit 37.3, platelet count 359 with neutrophil predominance at 92.4%. Chemistries show sodium 138, potassium 5.1, chloride 106, bicarbonate 28, BUN 51, creatinine 1.25, glucose 256, calcium 9.6. His CRP is 0.6. IMAGING: No new imaging today to review. ASSESSMENT AND PLAN: This is a 66-year-old male who presented with worsening shortness of breath, found to be positive for COVID-19, admitted to the intensive care unit (ICU) for acute hypoxic respiratory failure secondary to COVID-19 pneumonia. 1. Acute hypoxic respiratory failure secondary to COVID-19 pneumonia. He continues to improve regarding his oxygenation, and we are able to titrate him further down on his supplemental oxygen this morning. He has completed a course of remdesivir. He continues on intravenous (IV) steroids with Decadron, day #10 of a 14-day course. He is also on full-strength Lovenox 80 mg twice a day for hypercoagulability. His white blood cell count remains somewhat elevated, although this is potentially due to the steroids. His C-reactive protein (CRP) has trended downward. At this point, he does not need ICU-level care and can be downgraded. 2. Lower extremity edema. He did have a net negative of 1 liter yesterday but continues to have persistent edema in bilateral lower extremities. We will give him a dose of 40 mg intravenous (IV) Lasix today to see if this promotes further diuresis. His creatinine has been trending up the past few days. We will continue to trend daily and adjust diuretics as appropriate if he develops an acute kidney injury (JIGAR). 3. Paroxysmal atrial fibrillation. Patient has continued to be in sinus rhythm overnight. He has not received his oral metoprolol due to normal to low heart rates this morning and last night. He currently remains in sinus rhythm. 4. Suspected obstructive sleep apnea (DEBORAH). Patient continues to use CPAP at night. We will switch him to a table top today so he can be down-graded out of the ICU. Unfortunately, he will not be able to be discharged with a CPAP for home use, because he has not had a sleep study; however, we do recommend outpatient sleep study to confirm the diagnosis of DEBORAH. 5. Ocular cicatrizing pemphigoid. Patient is feeling well without irritation in his eyes. He continues with erythromycin topical ointment. He will followup when discharged with the treating physician to decide if he will continue on rituximab therapy. 6. 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 Patient continues on oral amoxicillin for daily prophylaxis. 7. Diabetes mellitus. Glucose levels remain somewhat elevated, likely due to the concurrent steroids. He is on sliding-scale insulin before meals and at bedtime. 8. Deep venous thrombosis (DVT) prophylaxis. He is on Lovenox as noted above. 9. Gastrointestinal (GI) prophylaxis. He is on Protonix given long course of steroids. CODE STATUS: Full code. Given the patient's significant improvement in his respiratory status, we will sign off from his care. Please feel free to give us a call with any further questions. Total critical care time spent not including any procedures approx 45 mins. I, Cindy Vera, have conducted an independent examination and history of the patient and agree with the plan as detailed by the resident above and discussed during rounds. JESS
[2021-04-15 16:00] VITALS: BP 129/58
[2021-04-15] MEDS: PRAVASTATIN 20 MG TAB PO SCH (19:38)
[2021-04-15] MEDS: **NOTE PATIENT COMMENT** MISC XX SCH (19:39)
[2021-04-15 20:00] VITALS: BP 126/71
[2021-04-16] VITALS: BP 112/56
[2021-04-16 04:00] VITALS: BP 164/77
[2021-04-16 05:45] LABS: BASO % 0.1 % (0.0-1.0); HEMATOCRIT 39.8 % (42.0-52.0); HEMOGLOBIN 13.4 g/dl (13.5-17.5); LYMPH # 0.4 10^3/uL (1.5-5.0); LYMPH % 2.8 % (24.0-44.0); MEAN CORPUSCULAR HEMOGLOBIN 30.5 pg (27.0-33.0); MEAN CORPUSCULAR HGB CONC 33.7 g/dl (32.0-36.5); MEAN CORPUSCULAR VOLUME 90.5 fl (80.0-96.0); MONO # 0.5 10^3/uL (0.0-0.8); MONO % 3.1 % (2.0-8.0); NEUTROPHILS # 14.8 10^3/uL (1.5-8.5); NEUTROPHILS % 92.7 % (36.0-66.0); PLATELET COUNT, AUTOMATED 390 10^3/uL (150-450)
[2021-04-16 06:15] LABS: ALBUMIN 2.6 GM/DL (3.2-5.2); ALT/SGPT 41 U/L (12-78); BILIRUBIN,TOTAL 0.4 MG/DL (0.2-1.0); BLOOD UREA NITROGEN 46 MG/DL (7-18); CALCIUM LEVEL 9.5 MG/DL (8.8-10.2); CARBON DIOXIDE LEVEL 24 MEQ/L (21-32); CHLORIDE LEVEL 105 MEQ/L (98-107); CREATININE FOR GFR 1.21 MG/DL (0.70-1.30); GLOMERULAR FILTRATION RATE > 60.0 (>49); GLUCOSE, FASTING 215 MG/DL (70-100); POTASSIUM SERUM 4.5 MEQ/L (3.5-5.1); SODIUM LEVEL 139 MEQ/L (136-145); TOTAL PROTEIN 6.5 GM/DL (6.4-8.2)
[2021-04-16] MEDS: METOPROLOL TART 12.5 MG PER 1/2 TAB PO SCH ×2 (08:20→21:00)
[2021-04-16 08:52] VITALS: BP 155/72
[2021-04-16] MEDS: HumaLOG INSULIN (NovoLOG) PER UNIT SC SCH ×4 (08:52→21:00)
[2021-04-16] MEDS: LOSARTAN 50MG TABLET PO SCH (08:52)
[2021-04-16] MEDS: PANTOPRAZOLE 40MG TAB (PROTONIX) PO SCH (08:52)
[2021-04-16] MEDS: AMOXICILLIN 875 MG TAB PO SCH ×2 (08:52→21:59)
[2021-04-16] MEDS: ASPIRIN 81 MG CHEW TABLET PO SCH (08:52)
[2021-04-16] MEDS: dexameTHASONE 4 MG/ML 1ML VIAL (J1100 PER 1MG) IV SCH ×2 (08:52→21:58)
[2021-04-16] MEDS: ENOXAPARIN 80MG/0.8ML SYRINGE (J1650 PER 10MG) SC SCH ×2 (08:53→21:58)
[2021-04-16] MEDS: COSOPT OCUMETER PLUS 10ML (DORZOLAMIDE/TIMOLOL) OU SCH ×2 (08:53→22:00)
[2021-04-16] MEDS: OFLOXACIN 0.3 % (OCUFLOX) OPTH SOL 5ML OU SCH ×2 (08:53→22:00)
--- NOTE | 2021-04-16 11:13 | IPNPDOC ---
Text Note Date of Service The patient was seen on 04/16/21. NOTE Subjective: Patient was seen and examined this morning at bedside. He tells me his breathing feels the same today, he continues to use CPAP at night. Now down to 5 L of high flow oxygen. Shortness of breath is still mostly on exertion where he still drops to the low 80s. Denies fevers or chills. No acute overnight events reported to me. Objective: Constitutional: Awake and alert, in no apparent distress sitting upright in chair. ENT: Sclera are clear. Mucosa is moist. Respiratory: Lungs diminished bilaterally fair air entry. No respiratory distress. No use of accessory muscles. on 5L high flow o2. Cardiovascular: RRR S1 and S2 are normal, no murmur Gastrointestinal: Abdomen is soft, non distended, non tender, BS present. Musculoskeletal: Some mild lower extremity pitting edema Neurologic: No focal neurological deficit. Mental Status: A&O x3, normal affect Skin: No visible rashes Assessment: 66 years old male with past medical history of type 2 diabetes, hypertension, depression, hypercholesterolemia, chronic left hip infection, history of cicatrizing conjunctivitis with Acute hypoxic respiratory failure secondary to COVID-19 pneumonia # Acute hypoxic respiratory failure secondary to COVID-19 pneumonia: continues to require NIPPV at night, but was downgraded from Vapotherm to high flow oxygen during the day and is saturating well. Oxygen requirements continued to trend down which is encouraging. Completed course of remdesivir. Continue IV steroids for 14 days (09/14) # Hypercoagulable state related to COVID-19: The patient is on full dose Lovenox. # LE edema: no hx of CHF, could be dependent edema from acute illness. Given 1 dose lasix yesterday, edema improved. Monitor. Lasix PRN. Likely from acute illness. # Suspected underlying DEBORAH: not formally diagnosed. OP Sleep study. CPAP for now while inpatient. # Paroxysmal Atrial fibrillation. Episodic and occurred during hypoxemia. Otherwise periods of bradycardia so not on bb. # Ocular cicatrizing pemphigoid: Scheduled for IgG infusions end of the week. # DM: ISS. Frequent Accu-Cheks. Hypoglycemic precautions. # Hypertension: Continue home meds. 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
[2021-04-16 17:24] VITALS: BP 134/62
[2021-04-16 20:00] VITALS: BP 151/68; O2SAT 92
[2021-04-16] MEDS: **NOTE PATIENT COMMENT** MISC XX SCH (21:00)
[2021-04-16] MEDS: PRAVASTATIN 20 MG TAB PO SCH (21:59)
[2021-04-17] VITALS (8 sets, daily range): BP systolic 132–168; BP diastolic 61–75; O2SAT 91–94
[2021-04-17 04:44] LABS: BASO % 0.2 % (0.0-1.0); EOS % 0.1 % (0.0-3.0); HEMATOCRIT 36.3 % (42.0-52.0); HEMOGLOBIN 11.9 g/dl (13.5-17.5); LYMPH # 0.3 10^3/uL (1.5-5.0); LYMPH % 2.5 % (24.0-44.0); MEAN CORPUSCULAR HEMOGLOBIN 30.3 pg (27.0-33.0); MEAN CORPUSCULAR HGB CONC 32.8 g/dl (32.0-36.5); MEAN CORPUSCULAR VOLUME 92.4 fl (80.0-96.0); MONO # 0.3 10^3/uL (0.0-0.8); MONO % 2.7 % (2.0-8.0); NEUTROPHILS # 11.7 10^3/uL (1.5-8.5); NEUTROPHILS % 93.2 % (36.0-66.0); PLATELET COUNT, AUTOMATED 307 10^3/uL (150-450); RED BLOOD COUNT 3.93 10^6/uL (4.30-6.10); WHITE BLOOD COUNT 12.6 10^3/uL (4.0-10.0)
[2021-04-17 05:11] LABS: ALBUMIN 2.3 GM/DL (3.2-5.2); ALT/SGPT 33 U/L (12-78); BILIRUBIN,TOTAL 0.3 MG/DL (0.2-1.0); BLOOD UREA NITROGEN 43 MG/DL (7-18); CALCIUM LEVEL 8.8 MG/DL (8.8-10.2); CARBON DIOXIDE LEVEL 22 MEQ/L (21-32); CHLORIDE LEVEL 106 MEQ/L (98-107); CREATININE FOR GFR 1.19 MG/DL (0.70-1.30); GLOMERULAR FILTRATION RATE > 60.0 (>49); GLUCOSE, FASTING 269 MG/DL (70-100); POTASSIUM SERUM 4.4 MEQ/L (3.5-5.1); SODIUM LEVEL 138 MEQ/L (136-145); TOTAL PROTEIN 5.4 GM/DL (6.4-8.2)
--- NOTE | 2021-04-17 07:29 | IPNPDOC ---
Text Note Date of Service The patient was seen on 04/17/21. NOTE Subjective: Patient was seen and examined this morning at bedside. He tells me his breathing feels the same today, he is happy that his oxygen requirements have continued to go down. He was taken off of the high flow oxygen and is now on 5 L of oxygen by nasal cannula. He continues to use CPAP at night. Shortness of breath is still mostly on exertion where he still drops to the low 80s still. Denies fevers or chills. No acute overnight events reported to me. Objective: Constitutional: Awake and alert, in no apparent distress sitting upright in chair. ENT: Sclera are clear. Mucosa is moist. Respiratory: Lungs diminished bilaterally fair air entry. No respiratory di stress. No use of accessory muscles. on 5L o2 by nasal canula. Cardiovascular: RRR S1 and S2 are normal, no murmur Gastrointestinal: Abdomen is soft, non distended, non tender, BS present. Musculoskeletal: Some mild lower extremity pitting edema Neurologic: No focal neurological deficit. Mental Status: A&O x3, normal affect Skin: No visible rashes Assessment: 66 years old male with past medical history of type 2 diabetes, hypertension, depression, hypercholesterolemia, chronic left hip infection, history of cicatrizing conjunctivitis with Acute hypoxic respiratory failure secondary to C OVID-19 pneumonia # Acute hypoxic respiratory failure secondary to COVID-19 pneumonia: continues to require NIPPV at night, but was downgraded from Vapotherm to high flow oxygen during the day and is saturating well. Oxygen requirements continued to trend down which is encouraging. Completed course of remdesivir. Continue IV steroids for 14 days (10/14) # Hypercoagulable state related to COVID-19: The patient is on full dose Lovenox. # LE edema: no hx of CHF, could be dependent edema from acute illness. Given 1 dose lasix yesterday, edema improved. Monitor. Lasix PRN. Likely from acute il lness. # Suspected underlying DEBORAH: not formally diagnosed. OP Sleep study. CPAP for now while inpatient. # Paroxysmal Atrial fibrillation. Episodic and occurred during hypoxemia. Otherwise periods of bradycardia so not on bb. # Ocular cicatrizing pemphigoid: Scheduled for IgG infusions end of the week. # DM: ISS. Frequent Accu-Cheks. Hypoglycemic precautions. # Hypertension: Continue home meds. 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
[2021-04-17] MEDS: METOPROLOL TART 12.5 MG PER 1/2 TAB PO SCH ×2 (09:00→21:06)
[2021-04-17] MEDS: AMOXICILLIN 875 MG TAB PO SCH ×2 (09:36→21:05)
[2021-04-17] MEDS: ENOXAPARIN 80MG/0.8ML SYRINGE (J1650 PER 10MG) SC SCH ×2 (09:36→21:07)
[2021-04-17] MEDS: COSOPT OCUMETER PLUS 10ML (DORZOLAMIDE/TIMOLOL) OU SCH ×2 (09:36→21:08)
[2021-04-17] MEDS: OFLOXACIN 0.3 % (OCUFLOX) OPTH SOL 5ML OU SCH ×2 (09:36→21:08)
[2021-04-17] MEDS: PANTOPRAZOLE 40MG TAB (PROTONIX) PO SCH (09:36)
[2021-04-17] MEDS: LOSARTAN 50MG TABLET PO SCH (09:37)
[2021-04-17] MEDS: ASPIRIN 81 MG CHEW TABLET PO SCH (09:37)
[2021-04-17] MEDS: HumaLOG INSULIN (NovoLOG) PER UNIT SC SCH ×4 (09:38→21:00)
[2021-04-17] MEDS: dexameTHASONE 4 MG/ML 1ML VIAL (J1100 PER 1MG) IV SCH ×2 (09:38→21:07)
[2021-04-17] MEDS: **NOTE PATIENT COMMENT** MISC XX SCH (21:00)
[2021-04-17] MEDS: PRAVASTATIN 20 MG TAB PO SCH (21:05)
[2021-04-17] MEDS: ACETAMINOPHEN TAB 650MG DOSE (2X325MG) PO PRN (21:06)
[2021-04-18] VITALS (7 sets, daily range): BP systolic 146–186; BP diastolic 64–81; O2SAT 92–97
[2021-04-18 04:45] LABS: BASO % 0.1 % (0.0-1.0); HEMATOCRIT 36.6 % (42.0-52.0); LYMPH # 0.3 10^3/uL (1.5-5.0); LYMPH % 2.5 % (24.0-44.0); MEAN CORPUSCULAR HGB CONC 32.8 g/dl (32.0-36.5); MEAN CORPUSCULAR VOLUME 91.5 fl (80.0-96.0); MONO # 0.5 10^3/uL (0.0-0.8); MONO % 3.9 % (2.0-8.0); NEUTROPHILS # 12.5 10^3/uL (1.5-8.5); NEUTROPHILS % 92.2 % (36.0-66.0); PLATELET COUNT, AUTOMATED 319 10^3/uL (150-450); WHITE BLOOD COUNT 13.6 10^3/uL (4.0-10.0)
[2021-04-18 05:15] LABS: ALBUMIN 2.3 GM/DL (3.2-5.2); ALT/SGPT 39 U/L (12-78); BILIRUBIN,TOTAL 0.4 MG/DL (0.2-1.0); BLOOD UREA NITROGEN 43 MG/DL (7-18); CALCIUM LEVEL 8.5 MG/DL (8.8-10.2); CARBON DIOXIDE LEVEL 24 MEQ/L (21-32); CHLORIDE LEVEL 105 MEQ/L (98-107); CREATININE FOR GFR 1.18 MG/DL (0.70-1.30); GLOMERULAR FILTRATION RATE > 60.0 (>49); GLUCOSE, FASTING 240 MG/DL (70-100); POTASSIUM SERUM 4.3 MEQ/L (3.5-5.1); SODIUM LEVEL 137 MEQ/L (136-145); TOTAL PROTEIN 5.5 GM/DL (6.4-8.2)
[2021-04-18] MEDS: HumaLOG INSULIN (NovoLOG) PER UNIT SC SCH ×4 (08:33→21:00)
[2021-04-18] MEDS: AMOXICILLIN 875 MG TAB PO SCH ×2 (08:33→21:33)
[2021-04-18] MEDS: ENOXAPARIN 80MG/0.8ML SYRINGE (J1650 PER 10MG) SC SCH ×2 (08:34→21:34)
[2021-04-18] MEDS: dexameTHASONE 4 MG/ML 1ML VIAL (J1100 PER 1MG) IV SCH ×2 (08:34→21:34)
[2021-04-18] MEDS: ASPIRIN 81 MG CHEW TABLET PO SCH (08:34)
[2021-04-18] MEDS: PANTOPRAZOLE 40MG TAB (PROTONIX) PO SCH (08:35)
[2021-04-18] MEDS: METOPROLOL TART 12.5 MG PER 1/2 TAB PO SCH ×2 (08:35→21:00)
[2021-04-18] MEDS: LOSARTAN 50MG TABLET PO SCH (08:35)
[2021-04-18] MEDS: OFLOXACIN 0.3 % (OCUFLOX) OPTH SOL 5ML OU SCH ×2 (08:36→21:34)
[2021-04-18] MEDS: COSOPT OCUMETER PLUS 10ML (DORZOLAMIDE/TIMOLOL) OU SCH ×2 (08:36→21:34)
--- NOTE | 2021-04-18 10:28 | IPNPDOC ---
Text Note Date of Service The patient was seen on 04/18/21. NOTE Subjective: Patient was seen and examined this morning at bedside. Not much change from yesterday. He is happy to report to me that he was able to ambulate yesterday with his nurse on 5 L of oxygen by nasal cannula and his saturation did not drop below 84%. Denies fevers or chills. No acute overnight events reported to me. Objective: Constitutional: Awake and alert, in no apparent distress sitting upright in chair. ENT: Sclera are clear. Mucosa is moist. Respiratory: Lungs diminished bilaterally fair air entry. No respiratory distress. No use of accessory muscles. on 5L o2 by nasal canula and CPAP while sleeping. Cardiovascular: RRR S1 and S2 are normal, no murmur Gastrointestinal: Abdomen is soft, non distended, non tender, BS present. Musculoskeletal: Some mild lower extremity pitting edema Neurologic: No focal neurological deficit. Mental Status: A&O x3, normal affect Skin: No visible rashes Assessment: 66 years old male with past medical history of type 2 diabetes, hypertension, depression, hypercholesterolemia, chronic left hip infection, history of cicatrizing conjunctivitis with Acute hypoxic respiratory failure secondary to COVID-19 pneumonia # Acute hypoxic respiratory failure secondary to COVID-19 pneumonia: continues to require NIPPV at night, but was downgraded from Vapotherm to high flow oxygen during the day and is saturating well. Oxygen requirements continued to trend down which is encouraging. Completed course of remdesivir. Continue IV steroids for 14 days (). Goal to continue to down titrate oxygen requirements. # Hypercoagulable state related to COVID-19: The patient is on full dose Lovenox. # LE edema: no hx of CHF, could be dependent edema from acute illness. Given 1 dose lasix yesterday, edema improved. Monitor. Lasix PRN. Likely from acute illness. # Suspected underlying DEBORAH: not formally diagnosed. OP Sleep study. CPAP for now while inpatient. # Paroxysmal Atrial fibrillation. Episodic and occurred during hypoxemia. Otherwise periods of bradycardia so not on bb. # Ocular cicatrizing pemphigoid: Scheduled for IgG infusions end of the week. # DM: ISS. Frequent Accu-Cheks. Hypoglycemic precautions. # Hypertension: Continue home meds. 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
[2021-04-18] MEDS: IMMUNE GLOBULIN 10% 10 GM in IV 1 EA IV SCH (14:34)
[2021-04-18] MEDS: IMMUNE GLOBULIN 10% 80 GM in IV 1 EA IV SCH (15:54)
[2021-04-18] MEDS: **NOTE PATIENT COMMENT** MISC XX SCH (21:00)
[2021-04-18] MEDS: PRAVASTATIN 20 MG TAB PO SCH (21:33)
[2021-04-19] VITALS: BP 146/67; O2SAT 93
[2021-04-19 04:00] VITALS: O2SAT 95
[2021-04-19 04:32] LABS: BASO % 0.2 % (0.0-1.0); HEMATOCRIT 33.9 % (42.0-52.0); HEMOGLOBIN 11.1 g/dl (13.5-17.5); LYMPH # 0.2 10^3/uL (1.5-5.0); LYMPH % 1.8 % (24.0-44.0); MEAN CORPUSCULAR HGB CONC 32.7 g/dl (32.0-36.5); MEAN CORPUSCULAR VOLUME 91.6 fl (80.0-96.0); MONO # 0.5 10^3/uL (0.0-0.8); MONO % 4.1 % (2.0-8.0); NEUTROPHILS # 11.1 10^3/uL (1.5-8.5); NEUTROPHILS % 91.7 % (36.0-66.0); PLATELET COUNT, AUTOMATED 270 10^3/uL (150-450); WHITE BLOOD COUNT 12.1 10^3/uL (4.0-10.0)
[2021-04-19 04:57] LABS: ALBUMIN 1.9 GM/DL (3.2-5.2); ALT/SGPT 36 U/L (12-78); BILIRUBIN,TOTAL 0.2 MG/DL (0.2-1.0); BLOOD UREA NITROGEN 36 MG/DL (7-18); CALCIUM LEVEL 8.6 MG/DL (8.8-10.2); CARBON DIOXIDE LEVEL 22 MEQ/L (21-32); CHLORIDE LEVEL 106 MEQ/L (98-107); GLOMERULAR FILTRATION RATE > 60.0 (>49); GLUCOSE, FASTING 263 MG/DL (70-100); POTASSIUM SERUM 4.2 MEQ/L (3.5-5.1); SODIUM LEVEL 135 MEQ/L (136-145); TOTAL PROTEIN 7.3 GM/DL (6.4-8.2)
[2021-04-19 08:00] VITALS: BP 172/76; O2SAT 93
[2021-04-19] MEDS: ENOXAPARIN 80MG/0.8ML SYRINGE (J1650 PER 10MG) SC SCH ×2 (08:21→21:05)
[2021-04-19] MEDS: dexameTHASONE 4 MG/ML 1ML VIAL (J1100 PER 1MG) IV SCH (08:21)
[2021-04-19] MEDS: LOSARTAN 50MG TABLET PO SCH (08:25)
[2021-04-19] MEDS: METOPROLOL TART 12.5 MG PER 1/2 TAB PO SCH ×2 (08:25→21:04)
[2021-04-19] MEDS: AMOXICILLIN 875 MG TAB PO SCH ×2 (08:25→21:03)
[2021-04-19] MEDS: ASPIRIN 81 MG CHEW TABLET PO SCH (08:25)
[2021-04-19] MEDS: OFLOXACIN 0.3 % (OCUFLOX) OPTH SOL 5ML OU SCH ×2 (08:26→21:05)
[2021-04-19] MEDS: PANTOPRAZOLE 40MG TAB (PROTONIX) PO SCH (08:26)
[2021-04-19] MEDS: COSOPT OCUMETER PLUS 10ML (DORZOLAMIDE/TIMOLOL) OU SCH ×2 (08:26→21:05)
[2021-04-19] MEDS: HumaLOG INSULIN (NovoLOG) PER UNIT SC SCH ×4 (08:27→21:05)
--- NOTE | 2021-04-19 10:40 | IPNPDOC ---
Text Note Date of Service The patient was seen on 04/19/21. NOTE Subjective: Patient was seen and examined this morning at bedside. Slightly improved from yesterday down to 2 L of oxygen per nasal cannula on ambulation. He wants to try to sleep the night without a BiPAP machine I discussed with his nurse to keep a close eye on his oxygen saturation while he sleeps and use it if necessary. He continues to desaturate to low 80s when ambulating with supplemental oxygen. Denies fevers or chills. No acute overnight events reported to me. Objective: Constitutional: Awake and alert, in no apparent distress sitting upright in chair. ENT: Sclera are clear. Mucosa is moist. Respiratory: Lungs diminished bilaterally fair air entry. No respiratory distress. No use of accessory muscles. on 3L o2 by nasal canula and CPAP while sleeping. Cardiovascular: RRR S1 and S2 are normal, no murmur Gastrointestinal: Abdomen is soft, non distended, non tender, BS present. Musculoskeletal: Some mild lower extremity pitting edema Neurologic: No focal neurological deficit. Mental Status: A&O x3, normal affect Skin: No visible rashes Assessment: 66 years old male with past medical history of type 2 diabetes, hypertension, depression, hypercholesterolemia, chronic left hip infection, history of cicatrizing conjunctivitis with Acute hypoxic respiratory failure secondary to COVID-19 pneumonia # Acute hypoxic respiratory failure secondary to COVID-19 pneumonia: continues to require NIPPV at night, but was downgraded from Vapotherm to high flow oxygen during the day and is saturating well. Oxygen requirements continued to trend down which is encouraging. Completed course of remdesivir. Continue IV steroids for 14 days (). Goal to continue to down titrate oxygen requirements and get off of CPAP. # Hypercoagulable state related to COVID-19: The patient is on full dose Lovenox. # LE edema: no hx of CHF, could be dependent edema from acute illness. Given 1 dose lasix yesterday, edema improved. Monitor. Lasix PRN. Likely from acute illness. # Suspected underlying DEBORAH: not formally diagnosed. OP Sleep study. CPAP for now while inpatient. # Paroxysmal Atrial fibrillation. Episodic and occurred during hypoxemia. Otherwise periods of bradycardia so not on bb. # Ocular cicatrizing pemphigoid: Given IVIG 04/18 & 04/19 # DM: ISS. Frequent Accu-Cheks. Hypoglycemic precautions. # Hypertension: Continue home meds. 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
[2021-04-19 12:00] VITALS: O2SAT 90
[2021-04-19] MEDS: IMMUNE GLOBULIN 10% 10 GM in IV 1 EA IV SCH (15:53)
[2021-04-19 16:00] VITALS: BP 162/75; O2SAT 93
[2021-04-19] MEDS: IMMUNE GLOBULIN 10% 80 GM in IV 1 EA IV SCH (16:47)
[2021-04-19 20:00] VITALS: BP 184/77; O2SAT 93
[2021-04-19] MEDS ORDERED: ENALAPRIL MALEATE 5 MG TAB PO ONE (20:50)
[2021-04-19] MEDS: **NOTE PATIENT COMMENT** MISC XX SCH (21:00)
[2021-04-19] MEDS: PRAVASTATIN 20 MG TAB PO SCH (21:03)
[2021-04-20] VITALS (8 sets, daily range): BP systolic 129–143; BP diastolic 57–64; O2SAT 92–96
[2021-04-20 05:19] LABS: BASO % 0.2 % (0.0-1.0); EOS % 0.1 % (0.0-3.0); HEMATOCRIT 32.4 % (42.0-52.0); HEMOGLOBIN 10.8 g/dl (13.5-17.5); LYMPH # 0.4 10^3/uL (1.5-5.0); MEAN CORPUSCULAR HEMOGLOBIN 30.6 pg (27.0-33.0); MEAN CORPUSCULAR HGB CONC 33.3 g/dl (32.0-36.5); MEAN CORPUSCULAR VOLUME 91.8 fl (80.0-96.0); MONO % 7.9 % (2.0-8.0); NEUTROPHILS # 10.3 10^3/uL (1.5-8.5); PLATELET COUNT, AUTOMATED 268 10^3/uL (150-450); RED BLOOD COUNT 3.53 10^6/uL (4.30-6.10)
[2021-04-20] MEDS: HumaLOG INSULIN (NovoLOG) PER UNIT SC SCH ×4 (08:29→21:39)
[2021-04-20] MEDS: AMOXICILLIN 875 MG TAB PO SCH ×2 (08:30→21:24)
[2021-04-20] MEDS: COSOPT OCUMETER PLUS 10ML (DORZOLAMIDE/TIMOLOL) OU SCH ×2 (08:33→21:24)
[2021-04-20] MEDS: ASPIRIN 81 MG CHEW TABLET PO SCH (08:33)
[2021-04-20] MEDS: ENOXAPARIN 80MG/0.8ML SYRINGE (J1650 PER 10MG) SC SCH ×2 (08:33→21:24)
[2021-04-20] MEDS: PANTOPRAZOLE 40MG TAB (PROTONIX) PO SCH (08:33)
[2021-04-20] MEDS: LOSARTAN 50MG TABLET PO SCH (08:33)
[2021-04-20] MEDS: OFLOXACIN 0.3 % (OCUFLOX) OPTH SOL 5ML OU SCH ×2 (08:34→21:25)
[2021-04-20 08:53] LABS: CALCIUM LEVEL 8.3 MG/DL (8.8-10.2); CREATININE FOR GFR 1.31 MG/DL (0.70-1.30); GLOMERULAR FILTRATION RATE 58.1 (>49); POTASSIUM SERUM 4.1 MEQ/L (3.5-5.1)
[2021-04-20] MEDS: METOPROLOL TART 12.5 MG PER 1/2 TAB PO SCH ×2 (09:00→21:30)
--- NOTE | 2021-04-20 12:19 | IPNPDOC ---
Text Note Date of Service The patient was seen on 04/20/21. NOTE Subjective: Patient was seen and examined this morning at bedside. Feels same as yesterday, on 2 L of oxygen per nasal cannula on ambulation. Tried sleeping last night without his CPAP machine and he did well and did not need overnight. He continues to desaturate to low 80s/ high 70's. when ambulating with supplemental oxygen. Denies fevers or chills. No acute overnight events reported to me. Objective: Constitutional: Awake and alert, in no apparent distress sitting upright in chair. ENT: Sclera are clear. Mucosa is moist. Respiratory: Lungs diminished bilaterally fair air entry. No respiratory distress. No use of accessory muscles. on 2L o2 by nasal canula and CPAP while sleeping. Cardiovascular: RRR S1 and S2 are normal, no murmur Gastrointestinal: Abdomen is soft, non distended, non tender, BS present. Musculoskeletal: Some mild lower extremity pitting edema Neurologic: No focal neurological deficit. Mental Status: A&O x3, normal affect Skin: No visible rashes Assessment: 66 years old male with past medical history of type 2 diabetes, hypertension, depression, hypercholesterolemia, chronic left hip infection, history of cicatrizing conjunctivitis with Acute hypoxic respiratory failure secondary to COVID-19 pneumonia # Acute hypoxic respiratory failure secondary to COVID-19 pneumonia: continues to require NIPPV at night, but was downgraded from Vapotherm to high flow oxygen during the day and is saturating well. Oxygen requirements continued to trend down which is encouraging. Completed course of remdesivir. Continue IV steroids for 14 days ended 04/20/21 switched to prednisone taper back eventually back to his chronic home daily prednisone. Goal to continue to down titrate oxygen requirements to a level he can go home on oxygen on ambulation. He was successfully taken off of the CPAP now as of 04/20. I anticipate he might get to a point where he'll have an acceptable oxygen saturation level on ambulation by mid/end of next week given how he's been slowly but steadily improving daily. # Hypercoagulable state related to COVID-19: The patient is on full dose Lovenox currently. # LE edema: no hx of CHF, could be dependent edema from acute illness. Given 1 dose lasix, edema improved. Monitor. Lasix PRN. Likely from acute illness. # Suspected underlying DEBORAH: not formally diagnosed. OP Sleep study. CPAP for now while inpatient as needed only now. # Paroxysmal Atrial fibrillation. Episodic and occurred during hypoxemia. Otherwise periods of bradycardia so not on bb. Likely related to illness. Currently on therapeutic Lovenox. # Ocular cicatrizing pemphigoid: Given IVIG 04/18 & 04/19. Follows with Dr Darden # DM: ISS. Frequent Accu-Cheks. Hypoglycemic precautions. # Hypertension: Continue home meds. 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
[2021-04-20] MEDS: predniSONE 20 MG TAB PO SCH (12:32)
[2021-04-20] MEDS: **NOTE PATIENT COMMENT** MISC XX SCH (21:00)
[2021-04-20] MEDS: PRAVASTATIN 20 MG TAB PO SCH (21:25)
[2021-04-21] VITALS: O2SAT 94
[2021-04-21 04:00] VITALS: BP 135/61; O2SAT 93
[2021-04-21 06:44] LABS: BASO % 0.3 % (0.0-1.0); EOS # 0.1 10^3/uL (0.0-0.5); EOS % 0.9 % (0.0-3.0); HEMATOCRIT 34.6 % (42.0-52.0); HEMOGLOBIN 11.3 g/dl (13.5-17.5); LYMPH # 0.5 10^3/uL (1.5-5.0); LYMPH % 4.4 % (24.0-44.0); MEAN CORPUSCULAR HEMOGLOBIN 30.7 pg (27.0-33.0); MEAN CORPUSCULAR HGB CONC 32.7 g/dl (32.0-36.5); MONO # 0.7 10^3/uL (0.0-0.8); MONO % 6.4 % (2.0-8.0); NEUTROPHILS # 9.2 10^3/uL (1.5-8.5); NEUTROPHILS % 85.3 % (36.0-66.0); PLATELET COUNT, AUTOMATED 231 10^3/uL (150-450); RED BLOOD COUNT 3.68 10^6/uL (4.30-6.10); WHITE BLOOD COUNT 10.8 10^3/uL (4.0-10.0)
[2021-04-21 07:06] LABS: BLOOD UREA NITROGEN 34 MG/DL (7-18); CALCIUM LEVEL 8.2 MG/DL (8.8-10.2); CARBON DIOXIDE LEVEL 19 MEQ/L (21-32); CHLORIDE LEVEL 109 MEQ/L (98-107); CREATININE FOR GFR 1.08 MG/DL (0.70-1.30); GLOMERULAR FILTRATION RATE > 60.0 (>49); GLUCOSE, FASTING 136 MG/DL (70-100); POTASSIUM SERUM 4.2 MEQ/L (3.5-5.1); SODIUM LEVEL 138 MEQ/L (136-145)
[2021-04-21 07:37] VITALS: BP 120/58
--- NOTE | 2021-04-21 07:44 | IPNPDOC ---
Text Note Date of Service The patient was seen on 04/21/21. NOTE Subjective: Patient was seen and examined this morning at bedside. Feels about the same. Has been successful again to sleep without his CPAP machine at night. He has been changed to as needed only now. And for sure he still continues to desaturate on ambulation to the high 70s or low 80s and feels very short of breath even with supplemental oxygen. Denies fevers or chills. No acute overnight events reported to me. Tells me he bumped his foot on the bed yesterday Objective: Constitutional: Awake and alert, in no apparent distress sitting upright in chair. ENT: Sclera are clear. Mucosa is moist. Respiratory: Lungs diminished bilaterally fair air entry. No respiratory distress. No use of accessory muscles. on 2L o2 by nasal canula and CPAP while sleeping as needed. Cardiovascular: RRR S1 and S2 are normal, no murmur Gastrointestinal: Abdomen is soft, non distended, non tender, BS present. Musculoskeletal: Some mild lower extremity pitting edema Neurologic: No focal neurological deficit. Mental Status: A&O x3, normal affect Skin: Small ecchymoses left dorsum of foot minimally swollen. Assessment: 66 years old male with past medical history of type 2 diabetes, hypertension, depression, hypercholesterolemia, chronic left hip infection, history of cica trizing conjunctivitis with Acute hypoxic respiratory failure secondary to COVID-19 pneumonia # Acute hypoxic respiratory failure secondary to COVID-19 pneumonia: continues to require NIPPV at night, but was downgraded from Vapotherm to high flow oxygen during the day and is saturating well. Oxygen requirements continued to trend down which is encouraging. Completed course of remdesivir. Continue IV steroids for 14 days ended 04/20/21 switched to prednisone taper back eventually back to his chronic home daily prednisone. Goal to continue to down titrate oxygen requirements to a level he can go home on oxygen on ambulation. He was successfully taken off of the CPAP now as of 04/20. I anticipate he might get to a point where he'll have an acceptable oxygen saturation level on ambulation by mid/end of this week given how he's been slowly but steadily improving daily. # Hypercoagulable state related to COVID-19: The patient is on full dose Lovenox currently. # LE edema: no hx of CHF, likely dependent edema from acute illness. Given 1 dose lasix, edema improved. Monitor. Lasix PRN. # Suspected underlying DEBORAH: not formally diagnosed. OP Sleep study. CPAP for now while inpatient as needed only now. # Paroxysmal Atrial fibrillation. Episodic and occurred during hypoxemia. Otherwise periods of bradycardia so not on bb. Likely related to illness. Currently on therapeutic Lovenox. # Ocular cicatrizing pemphigoid: Given IVIG 04/18 & 04/19. Follows with Dr Darden # DM: ISS. Frequent Accu-Cheks. Hypoglycemic precautions. # Hypertension: Continue home meds. 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
[2021-04-21] MEDS: ENOXAPARIN 80MG/0.8ML SYRINGE (J1650 PER 10MG) SC SCH ×2 (08:43→20:49)
[2021-04-21] MEDS: predniSONE 20 MG TAB PO SCH (08:44)
[2021-04-21] MEDS: PANTOPRAZOLE 40MG TAB (PROTONIX) PO SCH (08:44)
[2021-04-21] MEDS: AMOXICILLIN 875 MG TAB PO SCH ×2 (08:44→20:46)
[2021-04-21] MEDS: METOPROLOL TART 12.5 MG PER 1/2 TAB PO SCH ×2 (08:44→20:48)
[2021-04-21] MEDS: ASPIRIN 81 MG CHEW TABLET PO SCH (08:44)
[2021-04-21] MEDS: LOSARTAN 50MG TABLET PO SCH (08:44)
[2021-04-21] MEDS: HumaLOG INSULIN (NovoLOG) PER UNIT SC SCH ×4 (08:44→20:41)
[2021-04-21] MEDS: COSOPT OCUMETER PLUS 10ML (DORZOLAMIDE/TIMOLOL) OU SCH ×2 (08:45→20:48)
[2021-04-21] MEDS: OFLOXACIN 0.3 % (OCUFLOX) OPTH SOL 5ML OU SCH ×2 (08:45→20:48)
[2021-04-21] MEDS: LIDOCAINE 5% (LIDODERM) PATCH TD PRN (08:55)
[2021-04-21] MEDS: ACETAMINOPHEN TAB 650MG DOSE (2X325MG) PO PRN ×3 (13:21→22:37)
[2021-04-21 16:26] VITALS: BP 142/61
[2021-04-21 20:00] VITALS: BP 164/65; O2SAT 93
[2021-04-21] MEDS: PRAVASTATIN 20 MG TAB PO SCH (20:49)
[2021-04-21] MEDS: **NOTE PATIENT COMMENT** MISC XX SCH (20:55)
[2021-04-22] VITALS: O2SAT 94
[2021-04-22 04:00] VITALS: O2SAT 93
[2021-04-22 04:59] VITALS: BP 154/68
[2021-04-22] MEDS: ACETAMINOPHEN TAB 650MG DOSE (2X325MG) PO PRN ×3 (05:05→13:19)
[2021-04-22 06:34] LABS: HEMATOCRIT 33.6 % (42.0-52.0); HEMOGLOBIN 11.2 g/dl (13.5-17.5); MEAN CORPUSCULAR HEMOGLOBIN 30.4 pg (27.0-33.0); MEAN CORPUSCULAR HGB CONC 33.3 g/dl (32.0-36.5); MEAN CORPUSCULAR VOLUME 91.3 fl (80.0-96.0); PLATELET COUNT, AUTOMATED 245 10^3/uL (150-450); RED BLOOD COUNT 3.68 10^6/uL (4.30-6.10); WHITE BLOOD COUNT 10.4 10^3/uL (4.0-10.0)
[2021-04-22 06:55] LABS: BLOOD UREA NITROGEN 31 MG/DL (7-18); CALCIUM LEVEL 8.4 MG/DL (8.8-10.2); CARBON DIOXIDE LEVEL 25 MEQ/L (21-32); CHLORIDE LEVEL 107 MEQ/L (98-107); CREATININE FOR GFR 1.08 MG/DL (0.70-1.30); GLOMERULAR FILTRATION RATE > 60.0 (>49); GLUCOSE, FASTING 127 MG/DL (70-100); POTASSIUM SERUM 3.9 MEQ/L (3.5-5.1); SODIUM LEVEL 140 MEQ/L (136-145)
[2021-04-22] MEDS ORDERED: ATEN25TA PO (07:18)
[2021-04-22] MEDS ORDERED: PRED10TA2 PO (07:18)
[2021-04-22] MEDS ORDERED: LIDO5OIN19 TOP (07:56)
[2021-04-22] MEDS: ENOXAPARIN 80MG/0.8ML SYRINGE (J1650 PER 10MG) SC SCH (08:47)
[2021-04-22] MEDS: HumaLOG INSULIN (NovoLOG) PER UNIT SC SCH ×2 (08:48→12:30)
[2021-04-22 08:49] VITALS: BP 154/68
[2021-04-22] MEDS: ASPIRIN 81 MG CHEW TABLET PO SCH (08:49)
[2021-04-22] MEDS: AMOXICILLIN 875 MG TAB PO SCH (08:49)
[2021-04-22] MEDS: METOPROLOL TART 12.5 MG PER 1/2 TAB PO SCH (08:49)
[2021-04-22] MEDS: predniSONE 20 MG TAB PO SCH (08:49)
[2021-04-22] MEDS: LOSARTAN 50MG TABLET PO SCH (08:50)
[2021-04-22] MEDS: PANTOPRAZOLE 40MG TAB (PROTONIX) PO SCH (08:50)
[2021-04-22] MEDS: OFLOXACIN 0.3 % (OCUFLOX) OPTH SOL 5ML OU SCH (08:50)
[2021-04-22] MEDS: COSOPT OCUMETER PLUS 10ML (DORZOLAMIDE/TIMOLOL) OU SCH (08:50)
[2021-04-22 08:53] VITALS: BP 146/65
[2021-04-22] MEDS ORDERED: LIDOCAINE 5% (LIDODERM) PATCH TD SCH (09:00)
[2021-04-22] MEDS ORDERED: ELIQ5TAB PO (10:11)
--- NOTE | 2021-04-22 12:02 | DSES ---
DISCHARGE SUMMARY DATE OF ADMISSION: 04/05/2021 DATE OF DISCHARGE: 04/22/2021 PRIMARY DISCHARGE DIAGNOSIS: 1. Acute hypoxic respiratory failure. 2. Coronavirus pneumonia despite getting the Martínez vaccine. 3. Paroxysmal atrial fibrillation. 4. Anticoagulation secondary to COVID and atrial fibrillation. 5. Type 2 diabetes. 6. Hypertension. 7. Adult respiratory distress syndrome. 8. 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 9. 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 Neeta Darden, Infectious Disease. DISCHARGE MEDICATIONS: 1. Aspirin 81 mg daily. 2. Eliquis 5 mg b.i.d. 3. Prednisone taper. 4. Lidoderm ointment. 5. Atenolol 25 daily. 6. Augmentin 875 b.i.d. 7. Celecoxib 200 daily. 8. Dorzolamide one drop OU b.i.d. 9. Losartan 100 daily. 10.Metformin 500 q.a.m., 1 gram q. p.m. 11.Ofloxacin one drop OU b.i.d. 12.Pravastatin 40 mg p.o. q.h.s. 13.Prednisone 25 daily, to be resumed after the taper. HOSPITAL COURSE: A 66-year-old male who presented with worsening shortness of breath after a Mederma vaccine x2, was found to have bilateral infiltrates and severe hypoxia on admission with oxygen saturation on room air documented at 86%. The patient was given IV Solumedrol, Lovenox, Aspirin, Remdesivir, completed 14 days of IV steroids, switch to prednisone taper to his home daily dose. He required CPAP, managed by line assembler aircraft, Dr. Wilber Kirkpatrick with ICU admission and Dr. Mcdonald. The patient had associated acute respiratory distress syndrome and required noninvasive ventilation at sleep. Positive test for Coronavirus was on April 05, 2021 and isolation required for 20 days according to infection control. Due to hypercoagulation state from COVID-19 the patient was on full dose of Lovenox, had episode of episodic paroxysmal atrial fibrillation during his hypoxemic episodes treated with metoprolol 12.5 b.i.d. He had complaints of autoimmune conjunctivitis, usually scheduled for IgG infusions and has erythromycin ointment. The patient has been off noninvasive ventilation since April 20. He remains hypoxic with ambulation, dropping down to 85% on room air and is discharged home with home oxygen 1-2 liters to keep saturations above 90%. The patient is chronically on Amoxicillin due to chronic infection of the left hip prosthetic joint. PHYSICAL EXAMINATION ON DISCHARGE: VITAL SIGNS: Temperature 97.8, pulse 94, sinus rhythm, respiratory rate 19, blood pressure 146/65, 93% on room air, 85% with ambulation on room air. GENERAL: In no respiratory distress, no cyanosis, use of respiratory accessory muscles or tripod positioning. LUNGS: Diminished. No use of respiratory accessory muscles. HEART: S1 and S2, currently sinus rhythm. Episodes of irregularly irregular paroxysmal atrial fibrillation. ABDOMEN: Soft, nontender, obese abdomen. Positive bowel sounds x4 quadrants. EXTREMITIES: Left dorsum of the foot has erythema and some bruising, 1+ pitting edema bilaterally. LABORATORY DATA ON DISCHARGE: White count 10.4, hemoglobin 11, hematocrit 33, platelet count 245,000, sodium 140, potassium 3.9, chloride 107, bicarbonate 25, BUN 31, creatinine 1.08, glucose of 127. IMAGING STUDIES: CT of chest 04/05/2021: No pulmonary embolism. Multifocal areas of ground-glass opacities suggesting pneumonitis or early pneumonia. Chest x-ray on 04/13/2021: Patchy bilateral predominately alveolar infiltrates consistent with viral pneumonia, improved from 04/08 study. TIME SPENT ON DISCHARGE: 30 minutes
[2021-04-24] MEDS ORDERED: predniSONE 10 MG TAB PO SCH (09:00)
[2021-04-28] MEDS ORDERED: predniSONE 10 MG TAB PO SCH (09:00)
== END 2021-04-22 16:15 | disposition home health service (06) | DRG 177 ==
LOC: M ED 11:05 → M ED INP 12:46 → ENRESERV 15:22 → M 4MAIN 17:05 → M ICU 04-07 07:03
PROVIDERS: ADMIT Internal Medicine; ATTEND General Practice
PROC: 3E0333Z Introduction of Anti-inflammatory into Peripheral Vein, Percutaneous Approach (ICD-10-PCS; principal; 2021-04-05)
PROC: XW033E5 Introduction of Remdesivir Anti-infective into Peripheral Vein, Percutaneous Approach, New Technology Group 5 (ICD-10-PCS; 2021-04-05)
DX: U07.1 COVID-19 (principal); J12.82 Pneumonia due to coronavirus disease 2019; J96.01 Acute respiratory failure with hypoxia; E46 Unspecified protein-calorie malnutrition; D68.69 Other thrombophilia; E78.5 Hyperlipidemia, unspecified; E11.9 Type 2 diabetes mellitus without complications; I10 Essential (primary) hypertension; I48.0 Paroxysmal atrial fibrillation; R60.0 Localized edema; F32.9 Major depressive disorder, single episode, unspecified; R00.0 Tachycardia, unspecified; L12.1 Cicatricial pemphigoid; G47.33 Obstructive sleep apnea (adult) (pediatric); M06.9 Rheumatoid arthritis, unspecified; Z79.82 Long term (current) use of aspirin; Z79.84 Long term (current) use of oral hypoglycemic drugs; Z79.899 Other long term (current) drug therapy; Z88.1 Allergy status to other antibiotic agents; Z88.8 Allergy status to other drugs, medicaments and biological substances; Z96.651 Presence of right artificial knee joint; Z96.643 Presence of artificial hip joint, bilateral; Z87.891 Personal history of nicotine dependence; Z79.52 Long term (current) use of systemic steroids

== ENCOUNTER 2021-05-15 07:07 | Outpatient (CLI) | payer MEDICARE, OTHER ==
[~2021-05-15 07:07] MED LIST changes: +ATEN25TA PO; +DORZ2SOL5 OU; +ELIQ5TAB PO; +LIDO5OIN19 TOP; +OFLO3OPSO OU; +PRED20TA PO
[2021-05-15 07:20] VITALS: BP_SYST 184; BP_SYST 186; BP_DIAS 78
[2021-05-15] MEDS ORDERED: IMMUNE GLOBULIN 10% 80 GM in IV 1 EA IV ONE (07:40)
[2021-05-15] MEDS ORDERED: diphenhydrAMINE 50MG/ML VIAL (J1200) IV ONE (07:45)
[2021-05-15] MEDS ORDERED: dexameTHASONE 20MG/5ML VIAL (J1100 PER 1MG) IV ONE (07:45)
[2021-05-15] MEDS ORDERED: IMMUNE GLOBULIN 10% 10 GM in IV 1 EA IV ONE (07:45)
[2021-05-15 08:30] VITALS: BP 176/74
[2021-05-15 12:15] VITALS: BP 106/52
== END 2021-05-15 12:15 | disposition home or self-care (01) ==
LOC: M INFU 07:07
PROVIDERS: ATTEND Internal Medicine Infectious Disease
DX: L12.1 Cicatricial pemphigoid (principal); U07.1 COVID-19; Z79.899 Other long term (current) drug therapy
CPT/HCPCS: 36592; 86769; 96365; 96366; J1459

== ENCOUNTER 2021-05-16 09:33 | Outpatient (CLI) | payer MEDICARE, OTHER ==
[~2021-05-16] VITALS: Ht 177.8 cm; Wt 125.0 kg
[~2021-05-16 09:33] MED LIST changes: +IMMUNE GLOBULIN 10% 10 GM in IV 1 EA IV ONE; +IMMUNE GLOBULIN 10% 40 GM in IV 1 EA IV ONE; +dexameTHASONE 20MG/5ML VIAL (J1100 PER 1MG) IV ONE; +diphenhydrAMINE 50MG/ML VIAL (J1200) IV ONE
[2021-05-16 09:50] VITALS: BP 178/75
[2021-05-16 11:00] VITALS: BP 160/74
[2021-05-16 12:00] VITALS: BP 154/70
[2021-05-16 13:00] VITALS: BP 147/68
[2021-05-16 14:00] VITALS: BP 164/81
== END 2021-05-16 14:00 | disposition home or self-care (01) ==
LOC: M INFU 09:33
PROVIDERS: ATTEND Internal Medicine Infectious Disease
DX: L12.1 Cicatricial pemphigoid (principal); Z88.1 Allergy status to other antibiotic agents; Z88.8 Allergy status to other drugs, medicaments and biological substances
CPT/HCPCS: 96365; 96366; J1459

== ENCOUNTER → 2021-05-16 | Outpatient (CLI) | payer MEDICARE, OTHER | LOC: M INFU 09:03 | PROVIDERS: ATTEND Internal Medicine Infectious Disease | DX: Z53.9 Procedure and treatment not carried out, unspecified reason (principal) ==

== ENCOUNTER 2021-06-06 22:22 | Emergency (ER) | payer MEDICARE, OTHER ==
[~2021-06-06] VITALS: Ht 177.8 cm; Wt 128.2 kg
[~2021-06-06 22:22] MED LIST changes: -IMMUNE GLOBULIN 10% 10 GM in IV 1 EA IV ONE; -IMMUNE GLOBULIN 10% 40 GM in IV 1 EA IV ONE; -dexameTHASONE 20MG/5ML VIAL (J1100 PER 1MG) IV ONE; -diphenhydrAMINE 50MG/ML VIAL (J1200) IV ONE
[2021-06-06] MEDS ORDERED: BACT800T5 PO (22:34)
[2021-06-06 23:03] LABS: BASO # 0.1 10^3/uL (0.0-0.2); BASO % 0.5 % (0.0-1.0); EOS # 0.2 10^3/uL (0.0-0.5); EOS % 2.2 % (0.0-3.0); HEMATOCRIT 40.8 % (42.0-52.0); HEMOGLOBIN 12.8 g/dl (13.5-17.5); LYMPH # 1.8 10^3/uL (1.5-5.0); LYMPH % 15.9 % (24.0-44.0); MEAN CORPUSCULAR HEMOGLOBIN 30.6 pg (27.0-33.0); MEAN CORPUSCULAR HGB CONC 31.4 g/dl (32.0-36.5); MEAN CORPUSCULAR VOLUME 97.6 fl (80.0-96.0); MONO # 0.7 10^3/uL (0.0-0.8); MONO % 6.2 % (2.0-8.0); NEUTROPHILS # 8.2 10^3/uL (1.5-8.5); NEUTROPHILS % 74.7 % (36.0-66.0); PLATELET COUNT, AUTOMATED 322 10^3/uL (150-450); RED BLOOD COUNT 4.18 10^6/uL (4.30-6.10)
--- NOTE | 2021-06-06 23:11 | REPVR ---
PROCEDURE INFORMATION: Exam: XR Chest Exam date and time: 06/06/2021 11:06 PM Age: 66 years old Clinical indication: Chest wall pain; Additional info: Chest pain TECHNIQUE: Imaging protocol: XR of the chest. Views: 1 view. COMPARISON: [facility] PORTABLE CHEST X-RAY 04/13/2021 6:48 AM FINDINGS: Lungs: Slight right base clearing. The left lung is unchanged. Pleural spaces: Unremarkable. No pleural effusion. No pneumothorax. Heart/Mediastinum: The heart and mediastinum are unchanged considering AP and lordotic projection. Bones/joints: Unremarkable. Soft tissues: There are generous overlying soft tissues. IMPRESSION: 1. Slight right base clearing since 04/13/2021. 2. Otherwise stable lordotic chest since the prior study. Electronically signed by: Jori Wilks On 06/06/2021 23:10:44 PM
[2021-06-06 23:36] LABS: BLOOD UREA NITROGEN 20 MG/DL (7-18); CALCIUM LEVEL 9.1 MG/DL (8.8-10.2); CARBON DIOXIDE LEVEL 20 MEQ/L (21-32); CHLORIDE LEVEL 107 MEQ/L (98-107); CK-MB VALUE MASS 1.3 NG/ML (<3.6); CPK CREATINE PHOSPHOKINASE 67 U/L (39-308); CREATININE FOR GFR 1.32 MG/DL (0.70-1.30); GLOMERULAR FILTRATION RATE 57.6 (>49); GLUCOSE, FASTING 218 MG/DL (70-100); MB/CK RELATIVE INDEX 1.94 (< OR =4); POTASSIUM SERUM 4.8 MEQ/L (3.5-5.1); SODIUM LEVEL 138 MEQ/L (136-145); TROPONIN I < 0.02 NG/ML (< 0.10)
[2021-06-07] MEDS ORDERED: METOPROLOL TART 50 MG TAB PO ONE
[2021-06-07] MEDS: METOPROLOL 5 MG/5 ML VIAL IV SCH ×3 (00:09→00:25)
[2021-06-07 00:25] VITALS: BP 145/62
[2021-06-07] MEDS ORDERED: ATEN25TA PO (01:38)
[2021-06-07 02:00] VITALS: BP 116/61
--- NOTE | 2021-06-07 07:59 | ECGEPIP ---
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
== END 2021-06-07 02:31 | disposition home or self-care (01) ==
LOC: M ED 22:22
DX: I48.91 Unspecified atrial fibrillation (principal); I10 Essential (primary) hypertension; E78.5 Hyperlipidemia, unspecified; E66.9 Obesity, unspecified; Z86.16 Personal history of COVID-19; Z79.899 Other long term (current) drug therapy; Z79.82 Long term (current) use of aspirin; Z79.01 Long term (current) use of anticoagulants; Z88.1 Allergy status to other antibiotic agents; Z88.8 Allergy status to other drugs, medicaments and biological substances

== ENCOUNTER 2021-06-11 06:57 | Outpatient (CLI) | payer MEDICARE, OTHER ==
[~2021-06-11] VITALS: Ht 177.8 cm; Wt 125.0 kg
[2021-06-11 07:00] VITALS: BP 174/77
[2021-06-11] MEDS ORDERED: RITUXIMAB IV ONE (08:00)
[2021-06-11] MEDS ORDERED: NS IV ONE (08:00)
[2021-06-11 09:15] VITALS: BP 164/74
[2021-06-11 09:45] VITALS: BP 131/60
[2021-06-11 10:15] VITALS: BP 171/75
[2021-06-11 11:15] VITALS: BP 165/65
[2021-06-11 11:55] VITALS: BP 138/57
== END 2021-06-11 12:15 | disposition home or self-care (01) ==
LOC: M INFU 06:57
PROVIDERS: ATTEND Internal Medicine Infectious Disease
DX: L12.1 Cicatricial pemphigoid (principal); Z88.1 Allergy status to other antibiotic agents; Z88.8 Allergy status to other drugs, medicaments and biological substances
CPT/HCPCS: 96413; 96415; J9312

== ENCOUNTER 2021-06-12 06:50 | Outpatient (CLI) | payer MEDICARE, OTHER ==
[~2021-06-12] VITALS: Ht 177.8 cm; Wt 125.0 kg
[2021-06-12] MEDS ORDERED: diphenhydrAMINE 50MG/ML VIAL (J1200) IV ONE (07:00)
[2021-06-12] MEDS ORDERED: dexameTHASONE 20MG/5ML VIAL (J1100 PER 1MG) IV ONE (07:00)
[2021-06-12] MEDS ORDERED: IMMUNE GLOBULIN 10% 80 GM in IV 1 EA IV ONE (07:00)
[2021-06-12] MEDS ORDERED: IMMUNE GLOBULIN 10% 10 GM in IV 1 EA IV ONE (07:00)
[2021-06-12 07:16] VITALS: BP 147/66
[2021-06-12 07:40] VITALS: BP 152/70
[2021-06-12 08:10] VITALS: BP 161/72
[2021-06-12 08:40] VITALS: BP 158/68
[2021-06-12 09:45] VITALS: BP 132/60
[2021-06-12 11:22] VITALS: BP 144/69
== END 2021-06-12 11:25 | disposition home or self-care (01) ==
LOC: M INFU 06:50
PROVIDERS: ATTEND Internal Medicine Infectious Disease
DX: L12.1 Cicatricial pemphigoid (principal)
CPT/HCPCS: 96365; 96366; J1459

== ENCOUNTER 2021-06-13 06:55 | Outpatient (CLI) | payer MEDICARE, OTHER ==
[2021-06-13 07:00] VITALS: BP 146/67
[2021-06-13] MEDS ORDERED: diphenhydrAMINE 50MG/ML VIAL (J1200) IV ONE (07:00)
[2021-06-13] MEDS ORDERED: IMMUNE GLOBULIN 10% 10 GM in IV 1 EA IV ONE (07:00)
[2021-06-13] MEDS ORDERED: IMMUNE GLOBULIN 10% 80 GM in IV 1 EA IV ONE (07:00)
[2021-06-13] MEDS ORDERED: dexameTHASONE 20MG/5ML VIAL (J1100 PER 1MG) IV ONE (07:00)
[2021-06-13 08:30] VITALS: BP 171/73
[2021-06-13 09:00] VITALS: BP 163/70
[2021-06-13 09:30] VITALS: BP 174/79
[2021-06-13 10:30] VITALS: BP 160/72
[2021-06-13 11:45] VITALS: BP 190/85
== END 2021-06-13 11:45 | disposition home or self-care (01) ==
LOC: M INFU 06:55
PROVIDERS: ATTEND Internal Medicine Infectious Disease
DX: L12.1 Cicatricial pemphigoid (principal); Z88.1 Allergy status to other antibiotic agents
CPT/HCPCS: 96365; 96366; J1459

== ENCOUNTER → 2021-06-23 | Outpatient (REF) | payer MEDICARE, OTHER | LOC: M LAB REF 16:28 | PROVIDERS: ATTEND Internal Medicine | DX: Z01.89 Encounter for other specified special examinations (principal) ==

== ENCOUNTER 2021-07-10 07:44 | Outpatient (CLI) | payer MEDICARE, OTHER ==
[~2021-07-10] VITALS: Ht 177.8 cm; Wt 128.0 kg
[2021-07-10] VITALS (7 sets, daily range): BP systolic 124–190; BP diastolic 57–79
[~2021-07-10 07:44] MED LIST changes: +IMMUNE GLOBULIN 10% 10 GM in IV 1 EA IV ONE; +IMMUNE GLOBULIN 10% 80 GM in IV 1 EA IV ONE
== END 2021-07-10 12:20 | disposition home or self-care (01) ==
LOC: M INFU 07:44
PROVIDERS: ATTEND Internal Medicine Infectious Disease
DX: L12.1 Cicatricial pemphigoid (principal); Z88.1 Allergy status to other antibiotic agents
CPT/HCPCS: 96365; 96366; J1459

== ENCOUNTER 2021-07-11 07:09 | Outpatient (CLI) | payer MEDICARE, OTHER ==
[~2021-07-11] VITALS: Ht 177.8 cm; Wt 128.0 kg
[~2021-07-11 07:09] MED LIST changes: +dexameTHASONE 20MG/5ML VIAL (J1100 PER 1MG) IV ONE; +diphenhydrAMINE 50MG/ML VIAL (J1200) IV ONE
[2021-07-11 07:15] VITALS: BP 134/63
[2021-07-11 07:58] VITALS: BP 141/65
[2021-07-11 09:00] VITALS: BP 122/58
[2021-07-11 11:35] VITALS: BP 184/79
== END 2021-07-11 11:35 | disposition home or self-care (01) ==
LOC: M INFU 07:09
PROVIDERS: ATTEND Internal Medicine Infectious Disease
DX: L12.1 Cicatricial pemphigoid (principal); Z88.1 Allergy status to other antibiotic agents
CPT/HCPCS: 96365; 96366; J1459

== ENCOUNTER 2021-08-07 07:00 | Outpatient (CLI) | payer MEDICARE, OTHER ==
[~2021-08-07] VITALS: Ht 177.8 cm; Wt 131.8 kg
[~2021-08-07 07:00] MED LIST changes: -dexameTHASONE 20MG/5ML VIAL (J1100 PER 1MG) IV ONE; -diphenhydrAMINE 50MG/ML VIAL (J1200) IV ONE
[2021-08-07 07:05] VITALS: BP 131/68
[2021-08-07] MEDS: dexameTHASONE 20MG/5ML VIAL (J1100 PER 1MG) IV ONE ×2 (07:34→09:55)
[2021-08-07] MEDS: diphenhydrAMINE 50MG/ML VIAL (J1200) IV ONE ×2 (07:34→10:05)
[2021-08-07 08:32] VITALS: BP 147/67
[2021-08-07 10:00] VITALS: BP 144/69
[2021-08-07] MEDS ORDERED: PRED5TA (11:05)
[2021-08-12] MEDS ORDERED: IMMUNE GLOBULIN 10% 40 GM in IV 1 EA IV ONE ×2 (09:40→10:00)
== END 2021-08-07 10:30 | disposition home or self-care (01) ==
LOC: M INFU 07:00
PROVIDERS: ATTEND Internal Medicine Infectious Disease
DX: L12.1 Cicatricial pemphigoid (principal); Z88.1 Allergy status to other antibiotic agents

== ENCOUNTER 2021-08-07 10:39 | Emergency (ER) | payer MEDICARE, OTHER ==
[~2021-08-07] VITALS: Ht 177.8 cm; Wt 131.8 kg
[~2021-08-07 10:39] MED LIST changes: -IMMUNE GLOBULIN 10% 10 GM in IV 1 EA IV ONE; -IMMUNE GLOBULIN 10% 80 GM in IV 1 EA IV ONE
[2021-08-07] MEDS ORDERED: IPRATROPIUM 0.5MG/ALBUTEROL 2.5MG INH SOL UD 3ML (DUONEB) NEB ONE (10:45)
[2021-08-07] MEDS ORDERED: PRED5TA (11:05)
[2021-08-07 11:59] VITALS: BP 164/92
== END 2021-08-07 12:05 | disposition home or self-care (01) ==
LOC: M ED 10:39
DX: R06.02 Shortness of breath (principal); T50.Z15A Adverse effect of immunoglobulin, initial encounter; L12.1 Cicatricial pemphigoid; Z86.16 Personal history of COVID-19; I48.91 Unspecified atrial fibrillation; E11.9 Type 2 diabetes mellitus without complications; I10 Essential (primary) hypertension; Z87.891 Personal history of nicotine dependence; Z79.01 Long term (current) use of anticoagulants; Z79.82 Long term (current) use of aspirin; Z79.84 Long term (current) use of oral hypoglycemic drugs; Z79.899 Other long term (current) drug therapy; Z88.1 Allergy status to other antibiotic agents; Z88.8 Allergy status to other drugs, medicaments and biological substances
CPT/HCPCS: 94640; 96365; 96366; 99284; J1100; J1200; J1459

== ENCOUNTER → 2021-09-03 | Outpatient (REF) | payer MEDICARE, OTHER ==
[~2021-09-03] MED LIST changes: +PRED5TA
== END ==
LOC: M LAB REF 17:23
PROVIDERS: ATTEND Internal Medicine
DX: E78.00 Pure hypercholesterolemia, unspecified (principal)

== ENCOUNTER 2021-09-10 07:06 | Outpatient (CLI) | payer MEDICARE, OTHER ==
[~2021-09-10] VITALS: Ht 177.8 cm; Wt 131.8 kg
[~2021-09-10 07:06] MED LIST changes: +NS IV ONE; +RITUXIMAB IV ONE
[2021-09-10] MEDS ORDERED: ACETAMINOPHEN TAB 650MG DOSE (2X325MG) PO ONE (08:05)
[2021-09-10] MEDS ORDERED: dexameTHASONE 20MG/5ML VIAL (J1100 PER 1MG) IV ONE (08:05)
[2021-09-10] MEDS ORDERED: diphenhydrAMINE 50MG CAP PO ONE (08:10)
[2021-09-10 08:35] VITALS: BP 123/66
[2021-09-10 09:05] VITALS: BP 135/70
[2021-09-10 09:35] VITALS: BP 144/74
[2021-09-10 11:50] VITALS: BP 177/75
== END 2021-09-10 12:00 | disposition home or self-care (01) ==
LOC: M INFU 07:06
PROVIDERS: ATTEND Internal Medicine Infectious Disease
DX: L12.1 Cicatricial pemphigoid (principal); Z88.1 Allergy status to other antibiotic agents
CPT/HCPCS: 96375; 96413; 96415; J1100; J9312

== ENCOUNTER 2021-09-11 06:58 | Outpatient (CLI) | payer MEDICARE, OTHER ==
[~2021-09-11] VITALS: Ht 177.8 cm; Wt 131.8 kg
[~2021-09-11 06:58] MED LIST changes: -NS IV ONE; -RITUXIMAB IV ONE
[2021-09-11] MEDS ORDERED: diphenhydrAMINE 50MG/ML VIAL (J1200) IV ONE (07:00)
[2021-09-11] MEDS ORDERED: dexameTHASONE 20MG/5ML VIAL (J1100 PER 1MG) IV ONE (07:00)
[2021-09-11] MEDS ORDERED: IMMUNE GLOBULIN 10% 10 GM in IV 1 EA IV ONE (07:00)
[2021-09-11] MEDS ORDERED: IMMUNE GLOBULIN 10% 80 GM in IV 1 EA IV ONE (07:00)
[2021-09-11 07:45] VITALS: BP 138/63
[2021-09-11 08:45] VITALS: BP 138/67
[2021-09-11 09:15] VITALS: BP 138/69
[2021-09-11 11:45] VITALS: BP 167/75
== END 2021-09-11 11:45 | disposition home or self-care (01) ==
LOC: M INFU 06:58
PROVIDERS: ATTEND Internal Medicine Infectious Disease
DX: L12.1 Cicatricial pemphigoid (principal); Z88.1 Allergy status to other antibiotic agents
CPT/HCPCS: 96365; 96366; 96375; J1100; J1200; J1459

== ENCOUNTER 2021-09-12 07:02 | Outpatient (CLI) | payer MEDICARE, OTHER ==
[~2021-09-12] VITALS: Ht 177.8 cm; Wt 131.8 kg
[2021-09-12] VITALS (7 sets, daily range): BP systolic 137–178; BP diastolic 61–86
[2021-09-12] MEDS ORDERED: IMMUNE GLOBULIN 10% 80 GM in IV 1 EA IV ONE (07:30)
[2021-09-12] MEDS ORDERED: diphenhydrAMINE 50MG/ML VIAL (J1200) IV ONE (07:30)
[2021-09-12] MEDS ORDERED: dexameTHASONE 20MG/5ML VIAL (J1100 PER 1MG) IV ONE (07:30)
[2021-09-12] MEDS ORDERED: IMMUNE GLOBULIN 10% 10 GM in IV 1 EA IV ONE (07:30)
== END 2021-09-12 12:00 | disposition home or self-care (01) ==
LOC: M INFU 07:02
PROVIDERS: ATTEND Internal Medicine Infectious Disease
DX: L12.1 Cicatricial pemphigoid (principal); Z88.9 Allergy status to unspecified drugs, medicaments and biological substances
CPT/HCPCS: 96365; 96366; 96375; J1100; J1200; J1459

== ENCOUNTER 2021-10-09 07:22 | Outpatient (CLI) | payer MEDICARE, OTHER ==
[~2021-10-09] VITALS: Ht 177.8 cm; Wt 128.0 kg
[2021-10-09] VITALS (12 sets, daily range): BP systolic 116–170; BP diastolic 56–79
[~2021-10-09 07:22] MED LIST changes: +ACETAMINOPHEN TAB 650MG DOSE (2X325MG) PO ONE; +IMMUNE GLOBULIN 10% 10 GM in IV 1 EA IV ONE; +IMMUNE GLOBULIN 10% 80 GM in IV 1 EA IV ONE; +LOSA100T45 PO; -LOSA100T50 PO; +NS IV ONE; +RITUXIMAB IV ONE; +dexameTHASONE 20MG/5ML VIAL (J1100 PER 1MG) IV ONE
== END 2021-10-09 16:00 | disposition home or self-care (01) ==
LOC: M INFU 07:22
PROVIDERS: ATTEND Internal Medicine Infectious Disease
DX: L12.1 Cicatricial pemphigoid (principal); Z88.1 Allergy status to other antibiotic agents; Z88.8 Allergy status to other drugs, medicaments and biological substances
CPT/HCPCS: 96366; 96367; 96375; 96413; 96415; J1100; J1459; J9312

== ENCOUNTER 2021-11-06 07:00 | Outpatient (CLI) | payer MEDICARE, OTHER ==
[2021-11-06] VITALS (10 sets, daily range): BP systolic 139–185; BP diastolic 64–79
[~2021-11-06] VITALS: Ht 177.8 cm; Wt 129.5 kg
== END 2021-11-06 14:50 | disposition home or self-care (01) ==
LOC: M INFU 07:00
PROVIDERS: ATTEND Internal Medicine Medical Oncology
DX: L12.1 Cicatricial pemphigoid (principal); Z88.1 Allergy status to other antibiotic agents; Z88.8 Allergy status to other drugs, medicaments and biological substances
CPT/HCPCS: 96366; 96367; 96375; 96413; 96415; J1100; J1459; J9312

== ENCOUNTER 2021-11-07 06:28 | Outpatient (CLI) | payer MEDICARE, OTHER ==
[~2021-11-07] VITALS: Ht 177.8 cm; Wt 130.0 kg
[2021-11-07] VITALS (8 sets, daily range): BP systolic 110–167; BP diastolic 54–77
[~2021-11-07 06:28] MED LIST changes: -ACETAMINOPHEN TAB 650MG DOSE (2X325MG) PO ONE; -IMMUNE GLOBULIN 10% 10 GM in IV 1 EA IV ONE; -IMMUNE GLOBULIN 10% 80 GM in IV 1 EA IV ONE; -NS IV ONE; -RITUXIMAB IV ONE; -dexameTHASONE 20MG/5ML VIAL (J1100 PER 1MG) IV ONE
[2021-11-07] MEDS ORDERED: ACETAMINOPHEN TAB 650MG DOSE (2X325MG) PO ONE (06:55)
[2021-11-07] MEDS ORDERED: dexameTHASONE 20MG/5ML VIAL (J1100 PER 1MG) IV ONE (07:00)
[2021-11-07] MEDS ORDERED: IMMUNE GLOBULIN 10% 80 GM in IV 1 EA IV ONE (07:30)
[2021-11-07] MEDS ORDERED: IMMUNE GLOBULIN 10% 10 GM in IV 1 EA IV ONE (07:30)
== END 2021-11-07 12:25 | disposition home or self-care (01) ==
LOC: M INFU 06:28
PROVIDERS: ATTEND Internal Medicine Infectious Disease
DX: L12.1 Cicatricial pemphigoid (principal); Z88.1 Allergy status to other antibiotic agents; Z88.8 Allergy status to other drugs, medicaments and biological substances
CPT/HCPCS: 96365; 96366; J1100; J1459

== ENCOUNTER 2021-12-04 07:03 | Outpatient (CLI) | payer MEDICARE, OTHER ==
[2021-12-04] VITALS (9 sets, daily range): BP systolic 131–152; BP diastolic 62–70
[~2021-12-04] VITALS: Ht 177.8 cm; Wt 130.0 kg
[2021-12-04] MEDS ORDERED: IMMUNE GLOBULIN 10% 10 GM in IV 1 EA IV ONE (07:15)
[2021-12-04] MEDS ORDERED: dexameTHASONE 20MG/5ML VIAL (J1100 PER 1MG) IV ONE (07:15)
[2021-12-04] MEDS ORDERED: NS IV ONE (07:15)
[2021-12-04] MEDS ORDERED: IMMUNE GLOBULIN 10% 80 GM in IV 1 EA IV ONE (07:15)
[2021-12-04] MEDS ORDERED: RITUXIMAB IV ONE (07:15)
[2021-12-04] MEDS ORDERED: ACETAMINOPHEN TAB 650MG DOSE (2X325MG) PO ONE (07:15)
== END 2021-12-04 15:10 | disposition home or self-care (01) ==
LOC: M INFU 07:03
PROVIDERS: ATTEND Internal Medicine Medical Oncology
DX: L12.1 Cicatricial pemphigoid (principal); Z88.1 Allergy status to other antibiotic agents; Z88.8 Allergy status to other drugs, medicaments and biological substances
CPT/HCPCS: 96365; 96366; 96367; J1100; J1459; J9312

== ENCOUNTER 2021-12-05 06:44 | Outpatient (CLI) | payer MEDICARE, OTHER ==
[~2021-12-05] VITALS: Ht 177.8 cm; Wt 130.0 kg
[2021-12-05] VITALS (7 sets, daily range): BP systolic 126–187; BP diastolic 58–87
[2021-12-05] MEDS ORDERED: ACETAMINOPHEN TAB 650MG DOSE (2X325MG) PO ONE (07:00)
[2021-12-05] MEDS ORDERED: dexameTHASONE 20MG/5ML VIAL (J1100 PER 1MG) IV ONE (07:00)
[2021-12-05] MEDS ORDERED: IMMUNE GLOBULIN 10% 10 GM in IV 1 EA IV ONE (07:00)
[2021-12-05] MEDS ORDERED: IMMUNE GLOBULIN 10% 80 GM in IV 1 EA IV ONE (07:00)
== END 2021-12-05 11:40 | disposition home or self-care (01) ==
LOC: M INFU 06:44
PROVIDERS: ATTEND Internal Medicine Infectious Disease
DX: L12.1 Cicatricial pemphigoid (principal); Z88.1 Allergy status to other antibiotic agents; Z88.8 Allergy status to other drugs, medicaments and biological substances
CPT/HCPCS: 96365; 96366; 96375; J1100; J1459

== ENCOUNTER 2022-01-01 07:13 | Outpatient (CLI) | payer MEDICARE, OTHER ==
[~2022-01-01] VITALS: Ht 177.8 cm; Wt 78.0 kg
[2022-01-01] VITALS (8 sets, daily range): BP systolic 99–150; BP diastolic 53–77
[~2022-01-01 07:13] MED LIST changes: +ACETAMINOPHEN TAB 650MG DOSE (2X325MG) PO ONE; +IMMUNE GLOBULIN 10% 10 GM in IV 1 EA IV ONE; +IMMUNE GLOBULIN 10% 80 GM in IV 1 EA IV ONE; +dexameTHASONE 20MG/5ML VIAL (J1100 PER 1MG) IV ONE
[2022-01-01] MEDS ORDERED: NS IV ONE (10:00)
[2022-01-01] MEDS ORDERED: RITUXIMAB IV ONE (10:00)
== END 2022-01-01 17:05 | disposition home or self-care (01) ==
LOC: M INFU 07:13
PROVIDERS: ATTEND Internal Medicine Medical Oncology
DX: L12.1 Cicatricial pemphigoid (principal); Z88.1 Allergy status to other antibiotic agents
CPT/HCPCS: 96366; 96367; 96413; 96415; J1100; J1459; J9312

== ENCOUNTER 2022-01-02 06:51 | Outpatient (CLI) | payer MEDICARE, OTHER ==
[~2022-01-02] VITALS: Ht 177.8 cm; Wt 125.0 kg
[2022-01-02] VITALS (7 sets, daily range): BP systolic 125–175; BP diastolic 58–112
[~2022-01-02 06:51] MED LIST changes: -ACETAMINOPHEN TAB 650MG DOSE (2X325MG) PO ONE; -IMMUNE GLOBULIN 10% 10 GM in IV 1 EA IV ONE; -IMMUNE GLOBULIN 10% 80 GM in IV 1 EA IV ONE; -dexameTHASONE 20MG/5ML VIAL (J1100 PER 1MG) IV ONE
[2022-01-02] MEDS ORDERED: IMMUNE GLOBULIN 10% 10 GM in IV 1 EA IV ONE (07:00)
[2022-01-02] MEDS ORDERED: dexameTHASONE 20MG/5ML VIAL (J1100 PER 1MG) IV ONE (07:00)
[2022-01-02] MEDS ORDERED: ACETAMINOPHEN TAB 650MG DOSE (2X325MG) PO ONE (07:00)
[2022-01-02] MEDS ORDERED: IMMUNE GLOBULIN 10% 80 GM in IV 1 EA IV ONE (07:00)
== END 2022-01-02 12:00 | disposition home or self-care (01) ==
LOC: M INFU 06:51
PROVIDERS: ATTEND Internal Medicine Infectious Disease
DX: L12.1 Cicatricial pemphigoid (principal); Z88.1 Allergy status to other antibiotic agents
CPT/HCPCS: 96365; 96366; 96367; J1100; J1459

== ENCOUNTER → 2022-01-06 | Outpatient (REF) | payer MEDICARE, OTHER | LOC: M LAB REF 14:10 | PROVIDERS: ATTEND Internal Medicine | DX: R19.7 Diarrhea, unspecified (principal) ==

== ENCOUNTER → 2022-02-23 | Outpatient (CLI) | payer MEDICARE, OTHER | LOC: M WUC 13:02 | PROVIDERS: ATTEND Internal Medicine | DX: R06.02 Shortness of breath (principal); R05.9 Cough, unspecified ==

== ENCOUNTER 2022-03-04 06:46 | Outpatient (CLI) | payer MEDICARE, OTHER ==
[~2022-03-04] VITALS: Ht 177.8 cm; Wt 125.0 kg
[2022-03-04 07:00] VITALS: BP 151/67
[2022-03-04] MEDS ORDERED: ACETAMINOPHEN TAB 650MG DOSE (2X325MG) PO ONE (07:20)
[2022-03-04] MEDS ORDERED: dexameTHASONE 20MG/5ML VIAL (J1100 PER 1MG) IV ONE (07:20)
[2022-03-04] MEDS ORDERED: NS IV ONE (08:00)
[2022-03-04] MEDS ORDERED: RITUXIMAB IV ONE (08:00)
[2022-03-04 08:30] VITALS: BP 175/72
[2022-03-04 09:00] VITALS: BP 177/74
[2022-03-04 10:00] VITALS: BP 185/80
[2022-03-04 11:35] VITALS: BP 166/72
== END 2022-03-04 11:35 | disposition home or self-care (01) ==
LOC: M INFU 06:46
PROVIDERS: ATTEND Internal Medicine Infectious Disease
DX: L12.1 Cicatricial pemphigoid (principal); Z88.1 Allergy status to other antibiotic agents; Z88.8 Allergy status to other drugs, medicaments and biological substances
CPT/HCPCS: 96367; 96413; 96415; J1100; J9312

== ENCOUNTER 2022-03-05 07:00 | Outpatient (CLI) | payer MEDICARE, OTHER ==
[~2022-03-05] VITALS: Ht 177.8 cm; Wt 125.0 kg
[~2022-03-05 07:00] MED LIST changes: +IMMUNE GLOBULIN 10% 10 GM in IV 1 EA IV ONE; +IMMUNE GLOBULIN 10% 80 GM in IV 1 EA IV ONE
[2022-03-05 07:10] VITALS: BP 184/77
[2022-03-05 08:00] VITALS: BP 166/71
[2022-03-05 09:00] VITALS: BP 161/76
[2022-03-05 09:56] VITALS: BP 145/67
[2022-03-05 11:37] VITALS: BP 168/80
== END 2022-03-05 11:40 | disposition home or self-care (01) ==
LOC: M INFU 07:00
PROVIDERS: ATTEND Internal Medicine Infectious Disease
DX: L12.1 Cicatricial pemphigoid (principal); Z88.1 Allergy status to other antibiotic agents; Z88.8 Allergy status to other drugs, medicaments and biological substances
CPT/HCPCS: 96365; 96366; J1459

== ENCOUNTER 2022-03-06 06:47 | Outpatient (CLI) | payer MEDICARE, OTHER ==
[~2022-03-06] VITALS: Ht 177.8 cm; Wt 125.0 kg
[~2022-03-06 06:47] MED LIST changes: -IMMUNE GLOBULIN 10% 10 GM in IV 1 EA IV ONE; -IMMUNE GLOBULIN 10% 80 GM in IV 1 EA IV ONE
[2022-03-06 06:55] VITALS: BP 134/63
[2022-03-06] MEDS ORDERED: IMMUNE GLOBULIN 10% 10 GM in IV 1 EA IV ONE (07:00)
[2022-03-06] MEDS ORDERED: IMMUNE GLOBULIN 10% 80 GM in IV 1 EA IV ONE (07:00)
[2022-03-06] MEDS ORDERED: dexameTHASONE 20MG/5ML VIAL (J1100 PER 1MG) IV ONE (07:10)
[2022-03-06] MEDS ORDERED: ACETAMINOPHEN TAB 650MG DOSE (2X325MG) PO ONE (07:10)
[2022-03-06 07:55] VITALS: BP 165/76
[2022-03-06 10:00] VITALS: BP 139/62
[2022-03-06 11:53] VITALS: BP 184/63
== END 2022-03-06 11:55 | disposition home or self-care (01) ==
LOC: M INFU 06:47
PROVIDERS: ATTEND Internal Medicine Infectious Disease
DX: L12.1 Cicatricial pemphigoid (principal); Z88.1 Allergy status to other antibiotic agents; Z88.8 Allergy status to other drugs, medicaments and biological substances
CPT/HCPCS: 96365; 96366; 96367; J1100; J1459

== ENCOUNTER 2022-04-01 07:04 | Outpatient (CLI) | payer MEDICARE, OTHER ==
[2022-04-01 07:30] VITALS: BP 130/60
[2022-04-01] MEDS ORDERED: ACETAMINOPHEN TAB 650MG DOSE (2X325MG) PO ONE (08:00)
[2022-04-01] MEDS ORDERED: RITUXIMAB IV ONE (08:00)
[2022-04-01] MEDS ORDERED: dexameTHASONE 20MG/5ML VIAL (J1100 PER 1MG) IV ONE (08:00)
[2022-04-01] MEDS ORDERED: NS IV ONE (08:00)
[2022-04-01 09:30] VITALS: BP 136/66
[2022-04-01 11:15] VITALS: BP 138/61
== END 2022-04-01 11:15 | disposition home or self-care (01) ==
LOC: M INFU 07:04
PROVIDERS: ATTEND Internal Medicine Medical Oncology
DX: L12.1 Cicatricial pemphigoid (principal); Z88.1 Allergy status to other antibiotic agents; Z88.8 Allergy status to other drugs, medicaments and biological substances
CPT/HCPCS: 96367; 96413; 96415; J1100; J9312

== ENCOUNTER 2022-04-02 07:02 | Outpatient (CLI) | payer MEDICARE, OTHER ==
[~2022-04-02] VITALS: Ht 177.8 cm; Wt 125.0 kg
[~2022-04-02 07:02] MED LIST changes: +ACETAMINOPHEN TAB 650MG DOSE (2X325MG) PO ONE; +IMMUNE GLOBULIN 10% 10 GM in IV 1 EA IV ONE; +IMMUNE GLOBULIN 10% 80 GM in IV 1 EA IV ONE; +dexameTHASONE 20MG/5ML VIAL (J1100 PER 1MG) IV ONE
[2022-04-02 07:32] VITALS: BP 168/71
[2022-04-02 08:35] VITALS: BP 171/74
[2022-04-02 09:05] VITALS: BP 170/74
[2022-04-02 10:00] VITALS: BP 152/78
[2022-04-02 12:05] VITALS: BP 170/74
== END 2022-04-02 12:15 | disposition home or self-care (01) ==
LOC: M INFU 07:02
PROVIDERS: ATTEND Internal Medicine Infectious Disease
DX: L12.1 Cicatricial pemphigoid (principal); Z88.1 Allergy status to other antibiotic agents; Z88.8 Allergy status to other drugs, medicaments and biological substances
CPT/HCPCS: 96365; 96366; 96367; J1100; J1459

== ENCOUNTER 2022-04-03 06:47 | Outpatient (CLI) | payer MEDICARE, OTHER ==
[2022-04-03] VITALS (7 sets, daily range): BP systolic 138–182; BP diastolic 60–81
[~2022-04-03 06:47] MED LIST changes: -ACETAMINOPHEN TAB 650MG DOSE (2X325MG) PO ONE; -IMMUNE GLOBULIN 10% 10 GM in IV 1 EA IV ONE; -IMMUNE GLOBULIN 10% 80 GM in IV 1 EA IV ONE; -dexameTHASONE 20MG/5ML VIAL (J1100 PER 1MG) IV ONE
[2022-04-03] MEDS ORDERED: ACETAMINOPHEN TAB 650MG DOSE (2X325MG) PO ONE (07:00)
[2022-04-03] MEDS ORDERED: dexameTHASONE 20MG/5ML VIAL (J1100 PER 1MG) IV ONE (07:00)
[2022-04-03] MEDS ORDERED: IMMUNE GLOBULIN 10% 80 GM in IV 1 EA IV ONE (07:00)
[2022-04-03] MEDS ORDERED: IMMUNE GLOBULIN 10% 10 GM in IV 1 EA IV ONE (07:00)
== END 2022-04-03 11:45 | disposition home or self-care (01) ==
LOC: M INFU 06:47
PROVIDERS: ATTEND Internal Medicine Infectious Disease
DX: H10.89 Other conjunctivitis (principal); Z88.1 Allergy status to other antibiotic agents
CPT/HCPCS: 96365; 96366; 96375; J1100; J1459

== ENCOUNTER 2022-04-13 14:12 | Outpatient (CLI) | payer MEDICARE, OTHER ==
[~2022-04-13] VITALS: Ht 175.3 cm; Wt 133.8 kg
[2022-04-13] MEDS ORDERED: TIXAGEVIMAB/CILGAVIMAB (EVUSHELD) 150MG-150MG 3ML VIAL (EUA) IM NO SITE ONE (14:30)
[2022-04-13 14:31] VITALS: BP 146/65
[2022-04-13 15:20] VITALS: BP 148/78
== END 2022-04-13 15:20 | disposition home or self-care (01) ==
LOC: M INFU 14:12
PROVIDERS: ATTEND Internal Medicine Infectious Disease
DX: H10.89 Other conjunctivitis (principal); Z88.1 Allergy status to other antibiotic agents; Z88.8 Allergy status to other drugs, medicaments and biological substances

== ENCOUNTER 2022-05-06 08:50 | Outpatient (CLI) | payer MEDICARE, OTHER ==
[~2022-05-06] VITALS: Ht 177.8 cm; Wt 125.0 kg
[2022-05-06 07:00] VITALS: BP 142/62
[2022-05-06 08:30] VITALS: BP 150/68
[~2022-05-06 08:50] MED LIST changes: +ACETAMINOPHEN TAB 650MG DOSE (2X325MG) PO ONE; +NS IV ONE; +RITUXIMAB IV ONE; +dexameTHASONE 20MG/5ML VIAL (J1100 PER 1MG) IV ONE
[2022-05-06 09:00] VITALS: BP 150/82
[2022-05-06 09:30] VITALS: BP 160/80
[2022-05-06 10:30] VITALS: BP 160/71
[2022-05-06 11:30] VITALS: BP 162/83
== END 2022-05-06 11:30 ==
LOC: M INFU 08:50
PROVIDERS: ATTEND Internal Medicine Infectious Disease
DX: H10.89 Other conjunctivitis (principal); L12.1 Cicatricial pemphigoid; Z88.1 Allergy status to other antibiotic agents; Z88.8 Allergy status to other drugs, medicaments and biological substances
CPT/HCPCS: 96375; 96413; 96415; J1100; J9312

== ENCOUNTER 2022-05-07 07:05 | Outpatient (CLI) | payer MEDICARE, OTHER ==
[~2022-05-07] VITALS: Ht 177.8 cm; Wt 125.0 kg
[~2022-05-07 07:05] MED LIST changes: -ACETAMINOPHEN TAB 650MG DOSE (2X325MG) PO ONE; -NS IV ONE; -RITUXIMAB IV ONE; -dexameTHASONE 20MG/5ML VIAL (J1100 PER 1MG) IV ONE
[2022-05-07] MEDS ORDERED: ACETAMINOPHEN TAB 650MG DOSE (2X325MG) PO ONE (07:30)
[2022-05-07] MEDS ORDERED: IMMUNE GLOBULIN 10% 80 GM in IV 1 EA IV ONE (07:30)
[2022-05-07] MEDS ORDERED: IMMUNE GLOBULIN 10% 10 GM in IV 1 EA IV ONE (07:30)
[2022-05-07] MEDS ORDERED: dexameTHASONE 20MG/5ML VIAL (J1100 PER 1MG) IV ONE (07:30)
[2022-05-07 07:35] VITALS: BP 171/74
[2022-05-07 08:15] VITALS: BP 161/68
[2022-05-07 09:15] VITALS: BP 168/72
[2022-05-07 10:09] VITALS: BP 159/68
[2022-05-07 11:54] VITALS: BP 169/78
== END 2022-05-07 11:15 | disposition home or self-care (01) ==
LOC: M INFU 07:05
PROVIDERS: ATTEND Internal Medicine Infectious Disease
DX: H10.89 Other conjunctivitis (principal); Z88.1 Allergy status to other antibiotic agents; Z88.8 Allergy status to other drugs, medicaments and biological substances; L12.1 Cicatricial pemphigoid
CPT/HCPCS: 96365; 96366; 96375; J1100; J1459

== ENCOUNTER 2022-05-08 07:00 | Outpatient (CLI) | payer MEDICARE, OTHER ==
[~2022-05-08] VITALS: Ht 177.8 cm; Wt 125.0 kg
[2022-05-08 07:00] VITALS: BP 180/82
[~2022-05-08 07:00] MED LIST changes: +ACETAMINOPHEN TAB 650MG DOSE (2X325MG) PO ONE; +IMMUNE GLOBULIN 10% 10 GM in IV 1 EA IV ONE; +IMMUNE GLOBULIN 10% 80 GM in IV 1 EA IV ONE; +dexameTHASONE 20MG/5ML VIAL (J1100 PER 1MG) IV ONE
[2022-05-08 08:10] VITALS: BP 140/78
[2022-05-08 08:40] VITALS: BP 144/86
[2022-05-08 09:40] VITALS: BP 130/70
[2022-05-08 11:30] VITALS: BP 150/74
== END 2022-05-08 11:30 | disposition home or self-care (01) ==
LOC: M INFU 07:00
PROVIDERS: ATTEND Internal Medicine Infectious Disease
DX: H10.89 Other conjunctivitis (principal); Z88.1 Allergy status to other antibiotic agents; Z88.8 Allergy status to other drugs, medicaments and biological substances; L12.1 Cicatricial pemphigoid
CPT/HCPCS: 96365; 96366; 96375; J1100; J1459

== ENCOUNTER 2022-06-03 06:50 | Outpatient (CLI) | payer MEDICARE, OTHER ==
[~2022-06-03] VITALS: Ht 177.8 cm; Wt 125.0 kg
[2022-06-03] VITALS (7 sets, daily range): BP systolic 127–167; BP diastolic 58–77
[~2022-06-03 06:50] MED LIST changes: -ACETAMINOPHEN TAB 650MG DOSE (2X325MG) PO ONE; -IMMUNE GLOBULIN 10% 10 GM in IV 1 EA IV ONE; -IMMUNE GLOBULIN 10% 80 GM in IV 1 EA IV ONE; -dexameTHASONE 20MG/5ML VIAL (J1100 PER 1MG) IV ONE
[2022-06-03] MEDS ORDERED: NS IV ONE (07:30)
[2022-06-03] MEDS ORDERED: RITUXIMAB IV ONE (07:30)
[2022-06-03] MEDS ORDERED: ACETAMINOPHEN TAB 650MG DOSE (2X325MG) PO ONE (07:30)
[2022-06-03] MEDS ORDERED: dexameTHASONE 20MG/5ML VIAL (J1100 PER 1MG) IV ONE (07:30)
== END 2022-06-03 11:45 ==
LOC: M INFU 06:50
PROVIDERS: ATTEND Internal Medicine Infectious Disease
DX: H10.89 Other conjunctivitis (principal); L12.1 Cicatricial pemphigoid; Z88.1 Allergy status to other antibiotic agents; Z88.8 Allergy status to other drugs, medicaments and biological substances
CPT/HCPCS: 96375; 96413; 96415; J1100; J9312

== ENCOUNTER 2022-06-04 07:00 | Outpatient (CLI) | payer MEDICARE, OTHER ==
[2022-06-04] MEDS ORDERED: dexameTHASONE 20MG/5ML VIAL (J1100 PER 1MG) IV ONE (07:30)
[2022-06-04] MEDS ORDERED: IMMUNE GLOBULIN 10% 10 GM in IV 1 EA IV ONE (07:30)
[2022-06-04] MEDS ORDERED: ACETAMINOPHEN TAB 650MG DOSE (2X325MG) PO ONE (07:30)
[2022-06-04] MEDS ORDERED: IMMUNE GLOBULIN 10% 80 GM in IV 1 EA IV ONE (07:30)
[2022-06-04 08:30] VITALS: BP 134/63
[2022-06-04 09:00] VITALS: BP 156/66
[2022-06-04 09:30] VITALS: BP 148/69
[2022-06-04 10:00] VITALS: BP 161/75
[2022-06-04 11:00] VITALS: BP 177/81
[2022-06-04 12:05] VITALS: BP 170/89
== END 2022-06-04 12:05 | disposition home or self-care (01) ==
LOC: M INFU 07:00
PROVIDERS: ATTEND Internal Medicine Infectious Disease
DX: H10.89 Other conjunctivitis (principal); L12.1 Cicatricial pemphigoid; Z88.1 Allergy status to other antibiotic agents; Z88.8 Allergy status to other drugs, medicaments and biological substances
CPT/HCPCS: 96365; 96366; 96375; J1100; J1459

== ENCOUNTER 2022-06-05 07:00 | Outpatient (CLI) | payer MEDICARE, OTHER ==
[~2022-06-05] VITALS: Ht 177.8 cm; Wt 125.0 kg
[2022-06-05 07:00] VITALS: BP 157/72
[~2022-06-05 07:00] MED LIST changes: +ACETAMINOPHEN TAB 650MG DOSE (2X325MG) PO ONE; +IMMUNE GLOBULIN 10% 10 GM in IV 1 EA IV ONE; +IMMUNE GLOBULIN 10% 80 GM in IV 1 EA IV ONE; +dexameTHASONE 20MG/5ML VIAL (J1100 PER 1MG) IV ONE
[2022-06-05 08:30] VITALS: BP 140/69
[2022-06-05 09:00] VITALS: BP 167/80
[2022-06-05 09:30] VITALS: BP 170/89
[2022-06-05 10:30] VITALS: BP 171/90
[2022-06-05 11:40] VITALS: BP 138/74
== END 2022-06-05 11:45 | disposition home or self-care (01) ==
LOC: M INFU 07:00
PROVIDERS: ATTEND Internal Medicine Infectious Disease
DX: H10.89 Other conjunctivitis (principal); L12.1 Cicatricial pemphigoid; Z88.1 Allergy status to other antibiotic agents; Z88.8 Allergy status to other drugs, medicaments and biological substances
CPT/HCPCS: 96365; 96366; 96375; J1100; J1459

== ENCOUNTER 2022-07-08 06:50 | Outpatient (CLI) | payer MEDICARE, OTHER ==
[~2022-07-08] VITALS: Ht 177.8 cm; Wt 125.0 kg
[~2022-07-08 06:50] MED LIST changes: -ACETAMINOPHEN TAB 650MG DOSE (2X325MG) PO ONE; -IMMUNE GLOBULIN 10% 10 GM in IV 1 EA IV ONE; -IMMUNE GLOBULIN 10% 80 GM in IV 1 EA IV ONE; -dexameTHASONE 20MG/5ML VIAL (J1100 PER 1MG) IV ONE
[2022-07-08] MEDS ORDERED: ACETAMINOPHEN TAB 650MG DOSE (2X325MG) PO ONE (07:00)
[2022-07-08] MEDS ORDERED: NS IV ONE (07:00)
[2022-07-08] MEDS ORDERED: RITUXIMAB IV ONE (07:00)
[2022-07-08] MEDS ORDERED: dexameTHASONE 20MG/5ML VIAL (J1100 PER 1MG) IV ONE (07:00)
[2022-07-08 07:14] VITALS: BP 143/64
[2022-07-08 08:46] VITALS: BP 178/85
[2022-07-08 09:15] VITALS: BP 161/74
[2022-07-08 10:15] VITALS: BP 135/67
[2022-07-08 10:45] VITALS: BP 156/76
== END 2022-07-08 10:50 | disposition home or self-care (01) ==
LOC: M INFU 06:50
PROVIDERS: ATTEND Internal Medicine Infectious Disease
DX: L12.1 Cicatricial pemphigoid (principal); Z88.1 Allergy status to other antibiotic agents; Z88.8 Allergy status to other drugs, medicaments and biological substances
CPT/HCPCS: 96375; 96413; 96415; J1100; J9312

== ENCOUNTER 2022-07-09 06:45 | Outpatient (CLI) | payer MEDICARE, OTHER ==
[~2022-07-09] VITALS: Ht 177.8 cm; Wt 125.0 kg
[2022-07-09] MEDS ORDERED: IMMUNE GLOBULIN 10% 80 GM in IV 1 EA IV ONE (07:00)
[2022-07-09] MEDS ORDERED: IMMUNE GLOBULIN 10% 10 GM in IV 1 EA IV ONE (07:00)
[2022-07-09 07:11] VITALS: BP 136/60
[2022-07-09] MEDS ORDERED: ACETAMINOPHEN TAB 650MG DOSE (2X325MG) PO ONE (07:35)
[2022-07-09] MEDS ORDERED: dexameTHASONE 20MG/5ML VIAL (J1100 PER 1MG) IV ONE (07:35)
[2022-07-09 08:30] VITALS: BP 147/89
[2022-07-09 09:00] VITALS: BP 156/70
[2022-07-09 10:00] VITALS: BP 160/80
[2022-07-09 11:00] VITALS: BP 165/85
== END 2022-07-09 12:10 | disposition home or self-care (01) ==
LOC: M INFU 06:45
PROVIDERS: ATTEND Internal Medicine Infectious Disease
DX: H10.89 Other conjunctivitis (principal); L12.1 Cicatricial pemphigoid; Z88.1 Allergy status to other antibiotic agents; Z88.8 Allergy status to other drugs, medicaments and biological substances
CPT/HCPCS: 96365; 96366; 96375; J1100; J1459

== ENCOUNTER 2022-07-10 06:50 | Outpatient (CLI) | payer MEDICARE, OTHER ==
[~2022-07-10] VITALS: Ht 177.8 cm; Wt 125.0 kg
[2022-07-10] MEDS ORDERED: IMMUNE GLOBULIN 10% 80 GM in IV 1 EA IV ONE (07:30)
[2022-07-10] MEDS ORDERED: ACETAMINOPHEN TAB 650MG DOSE (2X325MG) PO ONE (07:30)
[2022-07-10] MEDS ORDERED: dexameTHASONE 20MG/5ML VIAL (J1100 PER 1MG) IV ONE (07:30)
[2022-07-10] MEDS ORDERED: IMMUNE GLOBULIN 10% 10 GM in IV 1 EA IV ONE (07:30)
[2022-07-10 08:00] VITALS: BP 144/64
[2022-07-10 08:30] VITALS: BP 163/70
[2022-07-10 09:00] VITALS: BP 170/80
[2022-07-10 10:00] VITALS: BP 159/70
== END 2022-07-10 11:55 | disposition home or self-care (01) ==
LOC: M INFU 06:50
PROVIDERS: ATTEND Internal Medicine Infectious Disease
DX: L12.1 Cicatricial pemphigoid (principal); Z88.1 Allergy status to other antibiotic agents; Z88.8 Allergy status to other drugs, medicaments and biological substances
CPT/HCPCS: 96365; 96366; 96375; J1100; J1459

== ENCOUNTER 2022-08-05 07:00 | Outpatient (CLI) | payer MEDICARE, OTHER ==
[~2022-08-05] VITALS: Ht 170.2 cm; Wt 125.0 kg
[2022-08-05 07:00] VITALS: BP 137/64
[~2022-08-05 07:00] MED LIST changes: +ACETAMINOPHEN TAB 650MG DOSE (2X325MG) PO ONE; +NS IV ONE; +RITUXIMAB IV ONE; +dexameTHASONE 20MG/5ML VIAL (J1100 PER 1MG) IV ONE
[2022-08-05 09:10] VITALS: BP 165/81
[2022-08-05 09:40] VITALS: BP 161/81
[2022-08-05 10:10] VITALS: BP 150/72
[2022-08-05 11:30] VITALS: BP 156/76
== END 2022-08-05 11:30 | disposition home or self-care (01) ==
LOC: M INFU 07:00
PROVIDERS: ATTEND Internal Medicine Infectious Disease
DX: H10.89 Other conjunctivitis (principal); L12.1 Cicatricial pemphigoid; Z88.1 Allergy status to other antibiotic agents; Z88.8 Allergy status to other drugs, medicaments and biological substances
CPT/HCPCS: 96375; 96413; 96415; J1100; J9312

== ENCOUNTER 2022-08-06 06:50 | Outpatient (CLI) | payer MEDICARE, OTHER ==
[~2022-08-06] VITALS: Ht 175.3 cm; Wt 125.0 kg
[~2022-08-06 06:50] MED LIST changes: -ACETAMINOPHEN TAB 650MG DOSE (2X325MG) PO ONE; -NS IV ONE; -RITUXIMAB IV ONE; -dexameTHASONE 20MG/5ML VIAL (J1100 PER 1MG) IV ONE
[2022-08-06 07:00] VITALS: BP 124/60
[2022-08-06] MEDS ORDERED: ACETAMINOPHEN TAB 650MG DOSE (2X325MG) PO ONE (07:30)
[2022-08-06] MEDS ORDERED: IMMUNE GLOBULIN 10% 10 GM in IV 1 EA IV ONE (07:30)
[2022-08-06] MEDS ORDERED: IMMUNE GLOBULIN 10% 80 GM in IV 1 EA IV ONE (07:30)
[2022-08-06] MEDS ORDERED: dexameTHASONE 20MG/5ML VIAL (J1100 PER 1MG) IV ONE (07:30)
[2022-08-06 08:00] VITALS: BP 141/68
[2022-08-06 08:30] VITALS: BP 133/63
[2022-08-06 09:00] VITALS: BP 145/67
[2022-08-06 10:00] VITALS: BP 165/77
[2022-08-06 11:32] VITALS: BP 176/77
== END 2022-08-06 11:40 | disposition home or self-care (01) ==
LOC: M INFU 06:50
PROVIDERS: ATTEND Internal Medicine Infectious Disease
DX: H10.89 Other conjunctivitis (principal); L12.1 Cicatricial pemphigoid; Z88.1 Allergy status to other antibiotic agents; Z88.8 Allergy status to other drugs, medicaments and biological substances
CPT/HCPCS: 96365; 96366; 96375; J1100; J1459

== ENCOUNTER 2022-08-07 07:00 | Outpatient (CLI) | payer MEDICARE, OTHER ==
[2022-08-07 07:00] VITALS: BP 182/88
[~2022-08-07 07:00] MED LIST changes: +ACETAMINOPHEN TAB 650MG DOSE (2X325MG) PO ONE; +IMMUNE GLOBULIN 10% 10 GM in IV 1 EA IV ONE; +IMMUNE GLOBULIN 10% 80 GM in IV 1 EA IV ONE; +dexameTHASONE 20MG/5ML VIAL (J1100 PER 1MG) IV ONE
[2022-08-07 08:00] VITALS: BP 160/80
[2022-08-07 08:30] VITALS: BP 150/74
[2022-08-07 09:30] VITALS: BP 162/82
[2022-08-07 10:30] VITALS: BP 178/88
[2022-08-07 11:45] VITALS: BP 182/82
== END 2022-08-07 11:50 | disposition home or self-care (01) ==
LOC: M INFU 07:00
PROVIDERS: ATTEND Internal Medicine Infectious Disease
DX: H10.89 Other conjunctivitis (principal); L12.1 Cicatricial pemphigoid; Z88.1 Allergy status to other antibiotic agents; Z88.8 Allergy status to other drugs, medicaments and biological substances
CPT/HCPCS: 96365; 96366; 96375; J1100; J1459

== ENCOUNTER 2022-09-02 07:15 | Outpatient (CLI) | payer MEDICARE, OTHER ==
[2022-09-02] VITALS (7 sets, daily range): BP systolic 133–151; BP diastolic 63–73
[~2022-09-02] VITALS: Ht 177.8 cm; Wt 125.5 kg
[~2022-09-02 07:15] MED LIST changes: -ACETAMINOPHEN TAB 650MG DOSE (2X325MG) PO ONE; -IMMUNE GLOBULIN 10% 10 GM in IV 1 EA IV ONE; -IMMUNE GLOBULIN 10% 80 GM in IV 1 EA IV ONE; -dexameTHASONE 20MG/5ML VIAL (J1100 PER 1MG) IV ONE
[2022-09-02] MEDS ORDERED: NS IV ONE (07:45)
[2022-09-02] MEDS ORDERED: RITUXIMAB IV ONE (07:45)
[2022-09-02] MEDS ORDERED: ACETAMINOPHEN TAB 650MG DOSE (2X325MG) PO ONE (07:45)
[2022-09-02] MEDS ORDERED: dexameTHASONE 20MG/5ML VIAL (J1100 PER 1MG) IV ONE (07:45)
== END 2022-09-02 11:40 | disposition home or self-care (01) ==
LOC: M INFU 07:15
PROVIDERS: ATTEND Internal Medicine Infectious Disease
DX: H10.89 Other conjunctivitis (principal); L12.1 Cicatricial pemphigoid; Z88.1 Allergy status to other antibiotic agents; Z88.8 Allergy status to other drugs, medicaments and biological substances
CPT/HCPCS: 96413; 96415; J1100; J9312

== ENCOUNTER 2022-09-03 07:00 | Outpatient (CLI) | payer MEDICARE, OTHER ==
[~2022-09-03] VITALS: Ht 177.8 cm; Wt 125.0 kg
[2022-09-03] MEDS ORDERED: dexameTHASONE 20MG/5ML VIAL (J1100 PER 1MG) IV ONE (07:30)
[2022-09-03] MEDS ORDERED: IMMUNE GLOBULIN 10% 80 GM in IV 1 EA IV ONE (07:30)
[2022-09-03] MEDS ORDERED: diphenhydrAMINE 50MG/ML VIAL (J1200) IV PRN (07:30)
[2022-09-03] MEDS ORDERED: ACETAMINOPHEN TAB 650MG DOSE (2X325MG) PO ONE (07:30)
[2022-09-03] MEDS ORDERED: IMMUNE GLOBULIN 10% 10 GM in IV 1 EA IV ONE (07:30)
[2022-09-03 07:58] VITALS: BP 152/68
[2022-09-03 08:30] VITALS: BP 165/75
[2022-09-03 09:00] VITALS: BP 170/77
[2022-09-03 10:00] VITALS: BP 177/88
[2022-09-03 11:40] VITALS: BP 170/85
== END 2022-09-03 11:15 ==
LOC: M INFU 07:00
PROVIDERS: ATTEND Internal Medicine Infectious Disease
DX: H10.89 Other conjunctivitis (principal); L12.1 Cicatricial pemphigoid; Z88.1 Allergy status to other antibiotic agents; Z88.8 Allergy status to other drugs, medicaments and biological substances
CPT/HCPCS: 96365; 96366; 96367; J1100; J1459

== ENCOUNTER 2022-09-04 06:55 | Outpatient (CLI) | payer MEDICARE, OTHER ==
[~2022-09-04] VITALS: Ht 177.8 cm; Wt 125.8 kg
[2022-09-04 07:00] VITALS: BP 130/61
[2022-09-04] MEDS ORDERED: diphenhydrAMINE 50MG/ML VIAL (J1200) IV PRN (07:30)
[2022-09-04] MEDS ORDERED: dexameTHASONE 20MG/5ML VIAL (J1100 PER 1MG) IV ONE (07:30)
[2022-09-04] MEDS ORDERED: IMMUNE GLOBULIN 10% 10 GM in IV 1 EA IV ONE (07:30)
[2022-09-04] MEDS ORDERED: ACETAMINOPHEN TAB 650MG DOSE (2X325MG) PO ONE (07:30)
[2022-09-04] MEDS ORDERED: IMMUNE GLOBULIN 10% 80 GM in IV 1 EA IV ONE (07:30)
[2022-09-04 08:00] VITALS: BP 142/62
[2022-09-04 09:00] VITALS: BP 132/57
[2022-09-04 10:00] VITALS: BP 170/75
[2022-09-04 11:45] VITALS: BP 151/79
== END 2022-09-04 11:45 | disposition home or self-care (01) ==
LOC: M INFU 06:55
PROVIDERS: ATTEND Internal Medicine Infectious Disease
DX: H10.89 Other conjunctivitis (principal); L12.1 Cicatricial pemphigoid; Z88.1 Allergy status to other antibiotic agents; Z88.8 Allergy status to other drugs, medicaments and biological substances
CPT/HCPCS: 96365; 96366; J1100; J1459

== ENCOUNTER 2022-11-11 07:05 | Outpatient (CLI) | payer MEDICARE, OTHER ==
[~2022-11-11] VITALS: Ht 172.7 cm; Wt 125.8 kg
[2022-11-11 07:05] VITALS: BP 178/76
[~2022-11-11 07:05] MED LIST changes: +ACETAMINOPHEN TAB 650MG DOSE (2X325MG) PO ONE; +NS IV ONE; +RITUXIMAB IV ONE; +diphenhydrAMINE 50MG/ML VIAL IV PRN
[2022-11-11 08:15] VITALS: BP 151/70
[2022-11-11 08:45] VITALS: BP 139/60
[2022-11-11 09:15] VITALS: BP 133/58
[2022-11-11 10:15] VITALS: BP 127/58
[2022-11-11 10:55] VITALS: BP 136/63
== END 2022-11-11 11:05 | disposition home or self-care (01) ==
LOC: M INFU 07:05
PROVIDERS: ATTEND Internal Medicine Infectious Disease
DX: H10.89 Other conjunctivitis (principal); L12.1 Cicatricial pemphigoid; Z88.1 Allergy status to other antibiotic agents; Z88.8 Allergy status to other drugs, medicaments and biological substances
CPT/HCPCS: 96375; 96413; 96415; J1100; J9312

== ENCOUNTER 2022-11-12 08:30 | Outpatient (CLI) | payer MEDICARE, OTHER ==
[~2022-11-12] VITALS: Ht 177.8 cm; Wt 125.0 kg
[~2022-11-12 08:30] MED LIST changes: +IMMUNE GLOBULIN 10% 10 GM in IV 1 EA IV ONE; +IMMUNE GLOBULIN 10% 80 GM in IV 1 EA IV ONE; -NS IV ONE; -RITUXIMAB IV ONE
[2022-11-12 08:42] VITALS: BP 140/70
[2022-11-12 09:14] VITALS: BP 132/62
[2022-11-12 09:45] VITALS: BP 134/59
[2022-11-12 10:15] VITALS: BP_SYST 134; BP_DIAS 59; BP_DIAS 63
[2022-11-12 11:15] VITALS: BP 151/77
[2022-11-12 12:55] VITALS: BP 165/72
== END 2022-11-12 13:00 | disposition home or self-care (01) ==
LOC: M INFU 08:30
PROVIDERS: ATTEND Internal Medicine Infectious Disease
DX: H10.89 Other conjunctivitis (principal); L12.1 Cicatricial pemphigoid; Z88.1 Allergy status to other antibiotic agents; Z88.8 Allergy status to other drugs, medicaments and biological substances
CPT/HCPCS: 96365; 96366; J1100; J1459

== ENCOUNTER 2022-11-13 07:10 | Outpatient (CLI) | payer MEDICARE, OTHER ==
[2022-11-13] VITALS (7 sets, daily range): BP systolic 157–192; BP diastolic 70–81
[~2022-11-13 07:10] MED LIST changes: -ACETAMINOPHEN TAB 650MG DOSE (2X325MG) PO ONE; -IMMUNE GLOBULIN 10% 10 GM in IV 1 EA IV ONE; -IMMUNE GLOBULIN 10% 80 GM in IV 1 EA IV ONE; -diphenhydrAMINE 50MG/ML VIAL IV PRN
[2022-11-13] MEDS ORDERED: diphenhydrAMINE 50MG/ML VIAL IV PRN (07:20)
[2022-11-13] MEDS ORDERED: IMMUNE GLOBULIN 10% 10 GM in IV 1 EA IV ONE (07:20)
[2022-11-13] MEDS ORDERED: ACETAMINOPHEN TAB 650MG DOSE (2X325MG) PO ONE (07:20)
[2022-11-13] MEDS ORDERED: IMMUNE GLOBULIN 10% 80 GM in IV 1 EA IV ONE (07:20)
== END 2022-11-13 12:30 | disposition home or self-care (01) ==
LOC: M INFU 07:10
PROVIDERS: ATTEND Internal Medicine Infectious Disease
DX: H10.89 Other conjunctivitis (principal); L12.1 Cicatricial pemphigoid; Z88.1 Allergy status to other antibiotic agents; Z88.8 Allergy status to other drugs, medicaments and biological substances
CPT/HCPCS: 96365; 96366; 96375; J1100; J1459

== ENCOUNTER 2023-01-06 07:00 | Outpatient (CLI) | payer MEDICARE, OTHER ==
[~2023-01-06] VITALS: Ht 177.8 cm; Wt 125.0 kg
[2023-01-06 07:00] VITALS: BP 143/64
[~2023-01-06 07:00] MED LIST changes: +ACETAMINOPHEN TAB 650MG DOSE (2X325MG) PO ONE; +NS IV ONE; +RITUXIMAB IV ONE; +diphenhydrAMINE 50MG/ML VIAL IV PRN
[2023-01-06 08:30] VITALS: BP 141/65
[2023-01-06 09:00] VITALS: BP 140/65
[2023-01-06 10:00] VITALS: BP 151/69
[2023-01-06 10:54] VITALS: BP 146/65
== END 2023-01-06 11:00 | disposition home or self-care (01) ==
LOC: M INFU 07:00
PROVIDERS: ATTEND Internal Medicine Infectious Disease
DX: H10.89 Other conjunctivitis (principal); L12.1 Cicatricial pemphigoid; Z88.1 Allergy status to other antibiotic agents; Z88.8 Allergy status to other drugs, medicaments and biological substances
CPT/HCPCS: 96375; 96413; 96415; J1100; J9312

== ENCOUNTER 2023-01-07 07:00 | Outpatient (CLI) | payer MEDICARE, OTHER ==
[~2023-01-07] VITALS: Ht 172.7 cm; Wt 126.0 kg
[~2023-01-07 07:00] MED LIST changes: -ACETAMINOPHEN TAB 650MG DOSE (2X325MG) PO ONE; -NS IV ONE; -RITUXIMAB IV ONE; -diphenhydrAMINE 50MG/ML VIAL IV PRN
[2023-01-07 07:24] VITALS: BP 154/68
[2023-01-07] MEDS ORDERED: IMMUNE GLOBULIN 10% 10 GM in IV 1 EA IV ONE (07:30)
[2023-01-07] MEDS ORDERED: ACETAMINOPHEN TAB 650MG DOSE (2X325MG) PO ONE (07:30)
[2023-01-07] MEDS ORDERED: IMMUNE GLOBULIN 10% 80 GM in IV 1 EA IV ONE (07:30)
[2023-01-07] MEDS ORDERED: diphenhydrAMINE 50MG/ML VIAL IV PRN (07:30)
[2023-01-07 08:01] VITALS: BP 145/65
[2023-01-07 09:00] VITALS: BP 155/71
[2023-01-07 10:00] VITALS: BP 173/75
[2023-01-07 11:30] VITALS: BP 154/73
== END 2023-01-07 08:35 | disposition home or self-care (01) ==
LOC: M INFU 07:00
PROVIDERS: ATTEND Internal Medicine Infectious Disease
DX: H10.89 Other conjunctivitis (principal); L12.1 Cicatricial pemphigoid; Z88.1 Allergy status to other antibiotic agents; Z88.8 Allergy status to other drugs, medicaments and biological substances; Z88.0 Allergy status to penicillin
CPT/HCPCS: 96365; 96366; 96375; J1100; J1459

== ENCOUNTER 2023-01-08 06:55 | Outpatient (CLI) | payer MEDICARE, OTHER ==
[~2023-01-08] VITALS: Ht 172.7 cm; Wt 125.0 kg
[2023-01-08 06:55] VITALS: BP 176/77
[2023-01-08] MEDS ORDERED: IMMUNE GLOBULIN 10% 80 GM in IV 1 EA IV ONE (07:30)
[2023-01-08] MEDS ORDERED: diphenhydrAMINE 50MG/ML VIAL IV PRN (07:30)
[2023-01-08] MEDS ORDERED: ACETAMINOPHEN TAB 650MG DOSE (2X325MG) PO ONE (07:30)
[2023-01-08] MEDS ORDERED: IMMUNE GLOBULIN 10% 10 GM in IV 1 EA IV ONE (07:30)
[2023-01-08 08:30] VITALS: BP 179/81
[2023-01-08 09:00] VITALS: BP 150/70
[2023-01-08 09:30] VITALS: BP 150/90
[2023-01-08 10:30] VITALS: BP 147/65
[2023-01-08 11:55] VITALS: BP 172/88
== END 2023-01-08 11:55 | disposition home or self-care (01) ==
LOC: M INFU 06:55
PROVIDERS: ATTEND Internal Medicine Infectious Disease
DX: H10.89 Other conjunctivitis (principal); L12.1 Cicatricial pemphigoid; Z88.8 Allergy status to other drugs, medicaments and biological substances; Z88.0 Allergy status to penicillin
CPT/HCPCS: 96365; 96366; 96375; J1100; J1459

== ENCOUNTER 2023-04-07 06:50 | Outpatient (CLI) | payer MEDICARE, OTHER ==
[~2023-04-07] VITALS: Ht 172.7 cm; Wt 123.0 kg
[~2023-04-07 06:50] MED LIST changes: -LOSA100T45 PO; +LOSA100T46 PO; -OFLO3OPSO OU; +OFLO5DRO OU
[2023-04-07] MEDS ORDERED: ACETAMINOPHEN TAB 650MG DOSE (2X325MG) PO PRN (07:00)
[2023-04-07] MEDS ORDERED: dexAMETHasone 20MG/5ML VIAL IV ONE (07:00)
[2023-04-07] MEDS ORDERED: NS IV ONE (07:00)
[2023-04-07] MEDS ORDERED: diphenhydrAMINE 50MG/ML VIAL IV PRN (07:00)
[2023-04-07] MEDS ORDERED: RITUXIMAB IV ONE (07:00)
[2023-04-07 07:06] VITALS: BP 156/67; O2SAT 96
[2023-04-07 08:30] VITALS: BP 173/76; O2SAT 96
[2023-04-07 10:26] VITALS: BP 168/74; O2SAT 95
[2023-04-07 10:46] VITALS: BP 151/69; O2SAT 97
== END 2023-04-07 10:40 | disposition home or self-care (01) ==
LOC: M INFU 06:50
PROVIDERS: ATTEND Internal Medicine Infectious Disease
DX: L12.1 Cicatricial pemphigoid (principal); H10.89 Other conjunctivitis; Z88.1 Allergy status to other antibiotic agents; Z88.8 Allergy status to other drugs, medicaments and biological substances
CPT/HCPCS: 96375; 96413; 96415; J1100; J9312

== ENCOUNTER 2023-04-09 07:00 | Outpatient (CLI) | payer MEDICARE, OTHER ==
[~2023-04-09 07:00] MED LIST changes: +IMMUNE GLOBULIN 10% 80 GM in IV 1 EA IV ONE
[2023-04-09 07:25] VITALS: BP 128/61; O2SAT 94
[2023-04-09] MEDS ORDERED: ACETAMINOPHEN TAB 650MG DOSE (2X325MG) PO PRN (07:30)
[2023-04-09] MEDS ORDERED: IMMUNE GLOBULIN 10% 80 GM in IV 1 EA IV ONE (07:30)
[2023-04-09] MEDS ORDERED: dexAMETHasone 20MG/5ML VIAL IV ONE (07:30)
[2023-04-09] MEDS ORDERED: IMMUNE GLOBULIN 10% 10 GM in IV 1 EA IV ONE (07:30)
[2023-04-09] MEDS ORDERED: diphenhydrAMINE 50MG/ML VIAL IV PRN (07:30)
[2023-04-09 08:00] VITALS: BP 144/63; O2SAT 97
[2023-04-09 08:30] VITALS: BP 157/64; O2SAT 96
[2023-04-09 09:30] VITALS: BP 140/60; O2SAT 97
[2023-04-09 10:30] VITALS: BP 149/67; O2SAT 94
[2023-04-09 12:00] VITALS: BP 169/89; O2SAT 96
== END 2023-04-09 12:00 | disposition home or self-care (01) ==
LOC: M INFU 07:00
PROVIDERS: ATTEND Internal Medicine Infectious Disease
DX: H10.89 Other conjunctivitis (principal); L12.1 Cicatricial pemphigoid; Z88.1 Allergy status to other antibiotic agents; Z88.8 Allergy status to other drugs, medicaments and biological substances
CPT/HCPCS: 96365; 96366; 96375; J1100; J1459

== ENCOUNTER 2023-07-30 18:49 | Inpatient (IN) | payer MEDICARE, OTHER ==
[~2023-07-30] VITALS: Ht 172.7 cm; Wt 125.9 kg
[~2023-07-30 18:49] MED LIST changes: +CELE0.09 PO; -CELE1CAP9 PO; -IMMUNE GLOBULIN 10% 80 GM in IV 1 EA IV ONE; +OFLO5DRO OD; -OFLO5DRO OU
[2023-07-30] MEDS ORDERED: SEMA1PEN2 SQ (19:41)
[2023-07-30] MEDS ORDERED: [UNRECOGNIZED DRUG - OTHER] (19:41)
[2023-07-30] MEDS ORDERED: atorvastatin (19:41)
[2023-07-30] MEDS ORDERED: NS 1,000 ML IV ONE (20:50)
[2023-07-30 21:29] LABS: BASO # 0.1 10^3/uL (0.0-0.2); BASO % 0.4 % (0.0-1.0); EOS # 0.3 10^3/uL (0.0-0.5); EOS % 2.1 % (0.0-3.0); HEMATOCRIT 36.8 % (42.0-52.0); HEMOGLOBIN 11.7 g/dl (13.5-17.5); LYMPH # 1.8 10^3/uL (1.5-5.0); LYMPH % 12.6 % (24.0-44.0); MEAN CORPUSCULAR HGB CONC 31.8 g/dl (32.0-36.5); MONO % 11.1 % (2.0-8.0); NEUTROPHILS # 10.4 10^3/uL (1.5-8.5); NEUTROPHILS % 73.4 % (36.0-66.0); PLATELET COUNT, AUTOMATED 369 10^3/uL (150-450); RED BLOOD COUNT 4.18 10^6/uL (4.30-6.10); WHITE BLOOD COUNT 14.2 10^3/uL (4.0-10.0)
[2023-07-30 21:49] LABS: MONO # 1.6 10^3/uL (0.0-0.8)
[2023-07-30 22:00] LABS: CALCIUM LEVEL 9.4 MG/DL (8.3-10.6); CREATININE FOR GFR 1.49 MG/DL (0.70-1.30); GLOMERULAR FILTRATION RATE 49.8 (>49); POTASSIUM SERUM 4.4 MMOL/L (3.5-5.1)
[2023-07-30 22:06] LABS: RSV AMPLIFICATION NEGATIVE (NEGATIVE)
[2023-07-31] MEDS ORDERED: CLINDAMYCIN 900 MG in IV 1 EA IV SCH (00:30)
[2023-07-31] MEDS ORDERED: ATEN25TA PO (00:48)
[2023-07-31] MEDS ORDERED: ATOR40TA75 PO (00:48)
[2023-07-31] MEDS ORDERED: ELIQ5TAB PO (00:48)
[2023-07-31] MEDS ORDERED: THERTAB52 PO (00:48)
[2023-07-31] MEDS ORDERED: HOME MED LIST COMPLETE! XX SCH (00:50)
[2023-07-31 01:51] VITALS: BP 140/72; TEMP 97.4; O2SAT 97
[2023-07-31] MEDS ORDERED: LINEZOLID 600 MG in IV 1 EA IV SCH (02:00)
[2023-07-31] MEDS ORDERED: GLUCOSE 4GM CHEW TABLET PO PRN (02:25)
[2023-07-31] MEDS ORDERED: DEXTROSE 50% 50ML SYRINGE IV PRN (02:25)
[2023-07-31] MEDS ORDERED: GLUCAGON INJ 1MG VIAL SC PRN (02:25)
[2023-07-31] MEDS: LOSARTAN 50MG TABLET PO SCH ×2 (03:08→20:44)
[2023-07-31] MEDS: ATORVASTATIN 20 MG TAB PO SCH ×2 (03:08→20:44)
[2023-07-31 05:50] VITALS: BP 129/49; TEMP 97.9; O2SAT 95
[2023-07-31 08:15] LABS: HEMATOCRIT 32.3 % (42.0-52.0); HEMOGLOBIN 10.4 g/dl (13.5-17.5); MEAN CORPUSCULAR HEMOGLOBIN 28.6 pg (27.0-33.0); MEAN CORPUSCULAR HGB CONC 32.2 g/dl (32.0-36.5); MEAN CORPUSCULAR VOLUME 88.7 fl (80.0-96.0); PLATELET COUNT, AUTOMATED 310 10^3/uL (150-450); RED BLOOD COUNT 3.64 10^6/uL (4.30-6.10); WHITE BLOOD COUNT 9.6 10^3/uL (4.0-10.0)
[2023-07-31 08:41] LABS: CALCIUM LEVEL 8.5 MG/DL (8.3-10.6); CREATININE FOR GFR 1.39 MG/DL (0.70-1.30); GLOMERULAR FILTRATION RATE 53.9 (>49); MAGNESIUM LEVEL 1.5 MG/DL (1.8-2.4); POTASSIUM SERUM 4.2 MMOL/L (3.5-5.1)
[2023-07-31] MEDS ORDERED: APIXABAN 5 MG TAB (ELIQUIS) PO SCH (09:00)
[2023-07-31] MEDS: AMOXICILLIN 875 MG TAB PO SCH ×2 (09:14→20:44)
[2023-07-31] MEDS: INSULIN LISPRO (NovoLOG) PER UNIT SC SCH ×4 (09:14→20:46)
[2023-07-31] MEDS: CelecoXIB (CeleBREX) 100 MG CAP PO SCH (09:14)
[2023-07-31] MEDS: OFLOXACIN 0.3 % (OCUFLOX) OPTH SOL 5ML OD SCH ×2 (09:15→20:46)
[2023-07-31] MEDS: atenoloL 25 MG TAB PO SCH ×2 (09:15→20:44)
[2023-07-31] MEDS: ENOXAPARIN 100MG/1ML SYRINGE (J1650 PER 10MG) SC SCH ×2 (12:30→20:43)
[2023-07-31] MEDS: MAG SULF 1GM/100ML (MAG RUN) 1 GM in IV 1 EA IV SCH ×2 (12:31→13:42)
[2023-07-31] MEDS ORDERED: LIDOCAINE W/EPINEPHRINE 1% 20ML VIAL SC ONE (13:00)
[2023-07-31 13:23] LABS: C REACTIVE PROTEIN QUANTITATIV 5.4 MG/DL (<1.0)
[2023-07-31 14:00] VITALS: BP 117/72; TEMP 97.5; O2SAT 98
[2023-07-31] MEDS: LINEZOLID 600MG TABLET (ZYVOX) PO SCH ×2 (14:58→20:44)
[2023-07-31] MEDS: ACETAMINOPHEN TAB 650MG DOSE (2X325MG) PO PRN (16:48)
[2023-07-31 20:00] VITALS: BP 119/52; TEMP 97.5; O2SAT 99
[2023-08-01 05:57] VITALS: BP 93/52; TEMP 98.1; O2SAT 97
[2023-08-01 08:04] LABS: BASO # 0.1 10^3/uL (0.0-0.2); BASO % 0.5 % (0.0-1.0); EOS # 0.4 10^3/uL (0.0-0.5); HEMATOCRIT 35.7 % (42.0-52.0); HEMOGLOBIN 10.7 g/dl (13.5-17.5); LYMPH # 1.4 10^3/uL (1.5-5.0); LYMPH % 15.1 % (24.0-44.0); MEAN CORPUSCULAR HEMOGLOBIN 27.7 pg (27.0-33.0); MEAN CORPUSCULAR VOLUME 92.5 fl (80.0-96.0); MONO # 1.2 10^3/uL (0.0-0.8); MONO % 12.7 % (2.0-8.0); NEUTROPHILS # 6.3 10^3/uL (1.5-8.5); NEUTROPHILS % 67.4 % (36.0-66.0); PLATELET COUNT, AUTOMATED 296 10^3/uL (150-450); RED BLOOD COUNT 3.86 10^6/uL (4.30-6.10); WHITE BLOOD COUNT 9.3 10^3/uL (4.0-10.0)
[2023-08-01 08:11] LABS: C REACTIVE PROTEIN QUANTITATIV 6.2 MG/DL (<1.0)
[2023-08-01 08:13] LABS: CALCIUM LEVEL 8.4 MG/DL (8.3-10.6); CREATININE FOR GFR 1.61 MG/DL (0.70-1.30); GLOMERULAR FILTRATION RATE 45.5 (>49); MAGNESIUM LEVEL 1.9 MG/DL (1.8-2.4); POTASSIUM SERUM 4.8 MMOL/L (3.5-5.1)
[2023-08-01] MEDS: atenoloL 25 MG TAB PO SCH ×2 (09:00→22:01)
[2023-08-01] MEDS: AMOXICILLIN 875 MG TAB PO SCH ×2 (10:03→22:00)
[2023-08-01] MEDS: INSULIN LISPRO (NovoLOG) PER UNIT SC SCH ×4 (10:03→21:00)
[2023-08-01] MEDS: CelecoXIB (CeleBREX) 100 MG CAP PO SCH (10:04)
[2023-08-01] MEDS: LINEZOLID 600MG TABLET (ZYVOX) PO SCH ×2 (10:06→21:59)
[2023-08-01] MEDS: ENOXAPARIN 100MG/1ML SYRINGE (J1650 PER 10MG) SC SCH (10:06)
[2023-08-01] MEDS: OFLOXACIN 0.3 % (OCUFLOX) OPTH SOL 5ML OD SCH ×2 (10:10→22:02)
[2023-08-01] MEDS: NS 1,000 ML IV SCH ×3 (10:38→22:03)
[2023-08-01 14:00] VITALS: BP 119/62; TEMP 98.1; O2SAT 96
[2023-08-01 19:55] VITALS: BP 132/50; TEMP 97.9; O2SAT 98
[2023-08-01] MEDS ORDERED: ENOXAPARIN 150MG/ML SYRINGE SC SCH (21:00)
[2023-08-01] MEDS: ATORVASTATIN 20 MG TAB PO SCH (21:59)
[2023-08-01] MEDS: ACETAMINOPHEN TAB 650MG DOSE (2X325MG) PO PRN (22:02)
[2023-08-02 05:51] VITALS: BP 129/52; TEMP 97.9; O2SAT 97
[2023-08-02 06:12] LABS: BASO % 0.4 % (0.0-1.0); EOS # 0.4 10^3/uL (0.0-0.5); EOS % 3.7 % (0.0-3.0); HEMATOCRIT 33.5 % (42.0-52.0); HEMOGLOBIN 10.5 g/dl (13.5-17.5); LYMPH # 1.7 10^3/uL (1.5-5.0); LYMPH % 17.6 % (24.0-44.0); MEAN CORPUSCULAR HEMOGLOBIN 28.1 pg (27.0-33.0); MEAN CORPUSCULAR HGB CONC 31.3 g/dl (32.0-36.5); MEAN CORPUSCULAR VOLUME 89.6 fl (80.0-96.0); MONO # 1.2 10^3/uL (0.0-0.8); MONO % 12.3 % (2.0-8.0); NEUTROPHILS # 6.3 10^3/uL (1.5-8.5); NEUTROPHILS % 65.7 % (36.0-66.0); PLATELET COUNT, AUTOMATED 304 10^3/uL (150-450); RED BLOOD COUNT 3.74 10^6/uL (4.30-6.10); WHITE BLOOD COUNT 9.7 10^3/uL (4.0-10.0)
[2023-08-02 06:30] LABS: C REACTIVE PROTEIN QUANTITATIV 6.8 MG/DL (<1.0)
[2023-08-02 06:31] LABS: CALCIUM LEVEL 8.1 MG/DL (8.3-10.6); CREATININE FOR GFR 1.54 MG/DL (0.70-1.30); GLOMERULAR FILTRATION RATE 47.9 (>49); MAGNESIUM LEVEL 1.8 MG/DL (1.8-2.4); POTASSIUM SERUM 4.7 MMOL/L (3.5-5.1)
[2023-08-02] MEDS: INSULIN LISPRO (NovoLOG) PER UNIT SC SCH ×4 (07:30→21:00)
[2023-08-02] MEDS: AMOXICILLIN 875 MG TAB PO SCH (09:42)
[2023-08-02] MEDS: CelecoXIB (CeleBREX) 100 MG CAP PO SCH (09:42)
[2023-08-02] MEDS: OFLOXACIN 0.3 % (OCUFLOX) OPTH SOL 5ML OD SCH ×2 (09:42→21:24)
[2023-08-02] MEDS: LINEZOLID 600MG TABLET (ZYVOX) PO SCH ×2 (09:42→21:24)
[2023-08-02] MEDS: atenoloL 25 MG TAB PO SCH ×2 (09:43→21:24)
[2023-08-02] MEDS: NS 1,000 ML IV SCH (10:15)
[2023-08-02] MEDS: ENOXAPARIN 150MG/ML SYRINGE SC SCH ×2 (11:54→22:23)
[2023-08-02 15:28] VITALS: BP 119/54; TEMP 97.9; O2SAT 98
[2023-08-02 20:50] VITALS: BP 141/68; TEMP 97.7; O2SAT 97
[2023-08-02] MEDS: ATORVASTATIN 20 MG TAB PO SCH (21:23)
[2023-08-02] MEDS: ACETAMINOPHEN TAB 650MG DOSE (2X325MG) PO PRN (21:23)
[2023-08-03 05:32] VITALS: BP 105/54; TEMP 98.4; O2SAT 94
[2023-08-03 07:12] LABS: BASO # 0.1 10^3/uL (0.0-0.2); BASO % 0.5 % (0.0-1.0); EOS # 0.3 10^3/uL (0.0-0.5); EOS % 3.4 % (0.0-3.0); HEMATOCRIT 32.8 % (42.0-52.0); HEMOGLOBIN 10.2 g/dl (13.5-17.5); LYMPH # 1.5 10^3/uL (1.5-5.0); LYMPH % 14.8 % (24.0-44.0); MEAN CORPUSCULAR HEMOGLOBIN 27.7 pg (27.0-33.0); MEAN CORPUSCULAR HGB CONC 31.1 g/dl (32.0-36.5); MEAN CORPUSCULAR VOLUME 89.1 fl (80.0-96.0); MONO # 1.2 10^3/uL (0.0-0.8); MONO % 11.9 % (2.0-8.0); NEUTROPHILS # 6.9 10^3/uL (1.5-8.5); PLATELET COUNT, AUTOMATED 303 10^3/uL (150-450); RED BLOOD COUNT 3.68 10^6/uL (4.30-6.10)
[2023-08-03 07:32] LABS: C REACTIVE PROTEIN QUANTITATIV 7.3 MG/DL (<1.0)
[2023-08-03 07:33] LABS: CALCIUM LEVEL 8.5 MG/DL (8.3-10.6); CREATININE FOR GFR 1.41 MG/DL (0.70-1.30); GLOMERULAR FILTRATION RATE 53.1 (>49); MAGNESIUM LEVEL 1.7 MG/DL (1.8-2.4); POTASSIUM SERUM 4.6 MMOL/L (3.5-5.1)
[2023-08-03] MEDS ORDERED: MAGNESIUM OXIDE 400MG TAB (MAG-OX) PO ONE (07:40)
[2023-08-03] MEDS: SODIUM CHLORIDE 0.9% INJ 10 ML SYR XX SCH (09:00)
[2023-08-03] MEDS: INSULIN LISPRO (NovoLOG) PER UNIT SC SCH ×4 (09:04→22:27)
[2023-08-03] MEDS: CelecoXIB (CeleBREX) 100 MG CAP PO SCH (09:04)
[2023-08-03] MEDS: LINEZOLID 600MG TABLET (ZYVOX) PO SCH ×2 (09:04→22:34)
[2023-08-03] MEDS: OFLOXACIN 0.3 % (OCUFLOX) OPTH SOL 5ML OD SCH ×2 (09:06→22:36)
[2023-08-03] MEDS: atenoloL 25 MG TAB PO SCH ×2 (09:06→22:35)
[2023-08-03 14:00] VITALS: BP 131/57; TEMP 97.5; O2SAT 97
[2023-08-03] MEDS ORDERED: LIDOCAINE 1% MDV 20ML VIAL As Ordered ONE (14:04)
[2023-08-03] MEDS ORDERED: cefTRIAXone SOD 2 GM in D5W MINI-BAG PLUS 50 ML IV SCH (16:35)
[2023-08-03] MEDS ORDERED: LevoFLOXacin 750 MG TABLET PO ONE (19:15)
[2023-08-03 21:58] VITALS: BP 132/69; TEMP 97.9; O2SAT 97
[2023-08-03] MEDS: ATORVASTATIN 20 MG TAB PO SCH (22:35)
[2023-08-04] MEDS ORDERED: LevoFLOXacin 750 MG TABLET PO SCH (06:00)
[2023-08-04 06:11] LABS: BASO % 0.4 % (0.0-1.0); EOS # 0.4 10^3/uL (0.0-0.5); HEMATOCRIT 34.8 % (42.0-52.0); HEMOGLOBIN 10.9 g/dl (13.5-17.5); LYMPH # 1.5 10^3/uL (1.5-5.0); LYMPH % 16.4 % (24.0-44.0); MEAN CORPUSCULAR HGB CONC 31.3 g/dl (32.0-36.5); MEAN CORPUSCULAR VOLUME 89.5 fl (80.0-96.0); MONO % 10.9 % (2.0-8.0); NEUTROPHILS # 6.1 10^3/uL (1.5-8.5); NEUTROPHILS % 67.9 % (36.0-66.0); PLATELET COUNT, AUTOMATED 320 10^3/uL (150-450); RED BLOOD COUNT 3.89 10^6/uL (4.30-6.10)
[2023-08-04 06:36] LABS: C REACTIVE PROTEIN QUANTITATIV 6.6 MG/DL (<1.0)
[2023-08-04 06:37] LABS: CALCIUM LEVEL 8.6 MG/DL (8.3-10.6); CREATININE FOR GFR 1.32 MG/DL (0.70-1.30); GLOMERULAR FILTRATION RATE 57.3 (>49); MAGNESIUM LEVEL 1.7 MG/DL (1.8-2.4); POTASSIUM SERUM 4.6 MMOL/L (3.5-5.1)
[2023-08-04 06:51] VITALS: BP 133/67; TEMP 97.9; O2SAT 96
[2023-08-04] MEDS ORDERED: ENOXAPARIN 150MG/ML SYRINGE SC SCH (09:00)
[2023-08-04 09:06] VITALS: BP 153/68
[2023-08-04] MEDS: INSULIN LISPRO (NovoLOG) PER UNIT SC SCH ×2 (09:06→12:00)
[2023-08-04] MEDS: LINEZOLID 600MG TABLET (ZYVOX) PO SCH (09:06)
[2023-08-04] MEDS: CelecoXIB (CeleBREX) 100 MG CAP PO SCH (09:06)
[2023-08-04] MEDS: atenoloL 25 MG TAB PO SCH (09:06)
[2023-08-04] MEDS: OFLOXACIN 0.3 % (OCUFLOX) OPTH SOL 5ML OD SCH (09:07)
[2023-08-04] MEDS: SODIUM CHLORIDE 0.9% INJ 10 ML SYR XX SCH (09:07)
[2023-08-04] MEDS: MAG SULF 1GM/100ML (MAG RUN) 1 GM in IV 1 EA IV SCH ×2 (09:07→10:16)
[2023-08-04] MEDS ORDERED: LINE1TAB6 PO (12:01)
[2023-08-04] MEDS ORDERED: LEVO1TAB40 PO (12:01)
[2023-08-04] MEDS ORDERED: RISATAB3 PO (12:06)
== END 2023-08-04 15:15 | disposition home health service (06) | DRG 603 ==
LOC: M ED 18:49 → M ED INP 07-31 00:17 → M MS5PR 07-31 01:44
PROVIDERS: ADMIT Family Medicine; ATTEND Internal Medicine
PROC: 0J9M30Z Drainage of Left Upper Leg Subcutaneous Tissue and Fascia with Drainage Device, Percutaneous Approach (ICD-10-PCS; principal; 2023-08-03 14:30)
DX: L02.416 Cutaneous abscess of left lower limb (principal); M86.652 Other chronic osteomyelitis, left thigh; I12.9 Hypertensive chronic kidney disease with stage 1 through stage 4 chronic kidney disease, or unspecified chronic kidney disease; E78.5 Hyperlipidemia, unspecified; M16.12 Unilateral primary osteoarthritis, left hip; E11.69 Type 2 diabetes mellitus with other specified complication; Z96.643 Presence of artificial hip joint, bilateral; Z96.651 Presence of right artificial knee joint; I48.0 Paroxysmal atrial fibrillation; H10.89 Other conjunctivitis; Z86.16 Personal history of COVID-19; Z79.01 Long term (current) use of anticoagulants; Z79.899 Other long term (current) drug therapy; Z88.1 Allergy status to other antibiotic agents; Z88.8 Allergy status to other drugs, medicaments and biological substances; E83.42 Hypomagnesemia; Z87.891 Personal history of nicotine dependence; L12.1 Cicatricial pemphigoid; M10.9 Gout, unspecified; N18.9 Chronic kidney disease, unspecified; E11.22 Type 2 diabetes mellitus with diabetic chronic kidney disease

== ENCOUNTER → 2023-08-18 | Outpatient (CLI) | payer MEDICARE, OTHER ==
[~2023-08-18] MED LIST changes: +ATOR40TA75 PO; +LEVO1TAB40 PO; +LINE1TAB6 PO; -OFLO5DRO OD; +OFLO5DRO OU; +RISATAB3 PO; +SEMA1PEN2 SQ; +THERTAB52 PO; +[UNRECOGNIZED DRUG - OTHER]; +atorvastatin
== END ==
LOC: M IRPRO 12:13
PROVIDERS: ATTEND Radiology Diagnostic Radiology
DX: L02.416 Cutaneous abscess of left lower limb (principal); Z53.9 Procedure and treatment not carried out, unspecified reason

== ENCOUNTER → 2023-08-23 | Outpatient (REF) | payer MEDICARE, OTHER ==
[~2023-08-23] MED LIST changes: +CARA1TAB6 PO; +PROT1TAB2 PO
[2023-08-23 19:18] LABS: ATYPICAL LYMPH 1 % (0-5); EOSINOPHILS 3 % (0-3); LYMPHOCYTES 14 % (16-44); MONOCYTES 6 % (0-5); NEUTROPHILS 75 % (28-66)
[2023-08-23 19:19] LABS: PLATELET ESTIMATE NORMAL (NORMAL)
== END ==
LOC: M LAB REF 16:35
PROVIDERS: ATTEND Internal Medicine
DX: D72.829 Elevated white blood cell count, unspecified (principal)

== ENCOUNTER → 2023-08-25 | Outpatient (REF) | payer MEDICARE, OTHER | LOC: M LAB REF 16:33 | PROVIDERS: ATTEND Surgery | DX: D23.9 Other benign neoplasm of skin, unspecified (principal) ==

== ENCOUNTER → 2023-08-25 | Outpatient (REF) | payer MEDICARE, OTHER | LOC: M SFHCPLAZ 17:14 | PROVIDERS: ATTEND Internal Medicine Infectious Disease | DX: L02.416 Cutaneous abscess of left lower limb (principal) ==

== ENCOUNTER → 2023-09-07 | Outpatient (REF) | payer MEDICARE, OTHER | LOC: M SFHCPLAZ 16:58 | PROVIDERS: ATTEND Internal Medicine Infectious Disease | DX: L02.416 Cutaneous abscess of left lower limb (principal) ==

== ENCOUNTER 2023-09-13 07:20 | Outpatient (CLI) | payer MEDICARE, OTHER ==
[~2023-09-13] VITALS: Ht 177.8 cm; Wt 115.9 kg
[2023-09-13] MEDS ORDERED: DALBAVANCIN 1,500 MG in D5W 250 ML IV ONE (08:00)
[2023-09-13 09:14] VITALS: BP 124/68; O2SAT 96
== END 2023-09-13 09:15 ==
LOC: M INFU 07:20
PROVIDERS: ATTEND Internal Medicine Infectious Disease
DX: L02.419 Cutaneous abscess of limb, unspecified (principal); B95.8 Unspecified staphylococcus as the cause of diseases classified elsewhere
CPT/HCPCS: 96365; J0875

== ENCOUNTER → 2023-09-14 | Outpatient (REF) | payer MEDICARE, OTHER ==
[2023-09-14 15:29] LABS: C REACTIVE PROTEIN QUANTITATIV 2.6 MG/DL (<1.0)
[2023-09-14 15:33] LABS: FOLATE 18.64 NG/ML (>5.4)
== END ==
LOC: M LAB REF 12:42
PROVIDERS: ATTEND Internal Medicine
DX: D64.9 Anemia, unspecified (principal); L02.416 Cutaneous abscess of left lower limb

== ENCOUNTER → 2023-09-21 | Outpatient (CLI) | payer MEDICARE, OTHER ==
[~2023-09-21] MED LIST changes: +ISOVUE-370 76% 100ML VIAL As Ordered ONE
== END ==
LOC: M RAD 12:58
PROVIDERS: ATTEND Physician Assistant
DX: L02.416 Cutaneous abscess of left lower limb (principal)
CPT/HCPCS: 72193; Q9967

== ENCOUNTER → 2023-11-16 | Outpatient (REF) | payer MEDICARE, OTHER ==
[~2023-11-16] MED LIST changes: -ISOVUE-370 76% 100ML VIAL As Ordered ONE
== END ==
LOC: M SFHCPLAZ 17:10
PROVIDERS: ATTEND Internal Medicine Infectious Disease
DX: L02.419 Cutaneous abscess of limb, unspecified (principal)

== ENCOUNTER → 2024-02-16 | Outpatient (REF) | payer MEDICARE, OTHER | LOC: M LAB REF 12:05 | PROVIDERS: ATTEND Internal Medicine | DX: Z01.812 Encounter for preprocedural laboratory examination (principal) ==

== ENCOUNTER → 2024-03-20 | Outpatient (REF) | payer MEDICARE, OTHER ==
[2024-03-20 14:57] LABS: BASO # 0.1 10^3/uL (0.0-0.2); BASO % 0.5 % (0.0-1.0); EOS # 0.8 10^3/uL (0.0-0.5); HEMATOCRIT 29.6 % (42.0-52.0); HEMOGLOBIN 9.2 g/dl (13.5-17.5); LYMPH # 1.6 10^3/uL (1.5-5.0); LYMPH % 16.2 % (24.0-44.0); MEAN CORPUSCULAR HEMOGLOBIN 28.8 pg (27.0-33.0); MEAN CORPUSCULAR HGB CONC 31.1 g/dl (32.0-36.5); MEAN CORPUSCULAR VOLUME 92.8 fl (80.0-96.0); MONO # 0.8 10^3/uL (0.0-0.8); MONO % 8.8 % (2.0-8.0); NEUTROPHILS # 6.3 10^3/uL (1.5-8.5); NEUTROPHILS % 66.1 % (36.0-66.0); PLATELET COUNT, AUTOMATED 450 10^3/uL (150-450); RED BLOOD COUNT 3.19 10^6/uL (4.30-6.10); WHITE BLOOD COUNT 9.6 10^3/uL (4.0-10.0)
[2024-03-20 15:18] LABS: C REACTIVE PROTEIN QUANTITATIV 2.5 MG/DL (<1.0)
[2024-03-20 15:20] LABS: ALBUMIN 2.6 G/DL (3.2-5.2); BILIRUBIN,TOTAL 0.4 MG/DL (0.3-1.2); CALCIUM LEVEL 8.9 MG/DL (8.3-10.6); CREATININE FOR GFR 1.37 MG/DL (0.70-1.30); GLOMERULAR FILTRATION RATE 54.7 (>42); POTASSIUM SERUM 5.2 MMOL/L (3.5-5.1); TOTAL PROTEIN 5.2 G/DL (5.7-8.2)
[2024-03-20 15:25] LABS: ERYTHROCYTE SEDIMENTATION RATE 43 mm/hr (0-20)
== END ==
LOC: M LAB REF 14:15
PROVIDERS: ATTEND Nurse Practitioner Adult Health
DX: M81.0 Age-related osteoporosis without current pathological fracture (principal)

== ENCOUNTER → 2024-03-27 | Outpatient (REF) | payer MEDICARE, OTHER ==
[2024-03-27 14:13] LABS: C REACTIVE PROTEIN QUANTITATIV 1.6 MG/DL (<1.0)
[2024-03-27 14:14] LABS: HEMATOCRIT 33.5 % (42.0-52.0); HEMOGLOBIN 10.5 g/dl (13.5-17.5); MEAN CORPUSCULAR HGB CONC 31.3 g/dl (32.0-36.5); MEAN CORPUSCULAR VOLUME 92.5 fl (80.0-96.0); PLATELET COUNT, AUTOMATED 291 10^3/uL (150-450); RED BLOOD COUNT 3.62 10^6/uL (4.30-6.10); WHITE BLOOD COUNT 9.6 10^3/uL (4.0-10.0)
[2024-03-27 14:15] LABS: BILIRUBIN,TOTAL 0.5 MG/DL (0.3-1.2); CALCIUM LEVEL 9.4 MG/DL (8.3-10.6); CREATININE FOR GFR 1.4 MG/DL (0.70-1.30); GLOMERULAR FILTRATION RATE 53.3 (>42); TOTAL PROTEIN 5.9 G/DL (5.7-8.2)
[2024-03-27 14:26] LABS: ERYTHROCYTE SEDIMENTATION RATE 41 mm/hr (0-20)
== END ==
LOC: M LAB REF 13:53
DX: L03.116 Cellulitis of left lower limb (principal)

== ENCOUNTER → 2024-04-03 | Outpatient (REF) | payer MEDICARE, OTHER ==
[2024-04-03 11:57] LABS: BASO # 0.1 10^3/uL (0.0-0.2); BASO % 0.8 % (0.0-1.0); EOS # 0.9 10^3/uL (0.0-0.5); EOS % 8.7 % (0.0-3.0); HEMATOCRIT 37.5 % (42.0-52.0); HEMOGLOBIN 11.3 g/dl (13.5-17.5); LYMPH # 2.4 10^3/uL (1.5-5.0); LYMPH % 23.4 % (24.0-44.0); MEAN CORPUSCULAR HEMOGLOBIN 28.3 pg (27.0-33.0); MEAN CORPUSCULAR HGB CONC 30.1 g/dl (32.0-36.5); MEAN CORPUSCULAR VOLUME 93.8 fl (80.0-96.0); MONO # 0.9 10^3/uL (0.0-0.8); MONO % 8.8 % (2.0-8.0); NEUTROPHILS # 5.9 10^3/uL (1.5-8.5); NEUTROPHILS % 57.7 % (36.0-66.0); PLATELET COUNT, AUTOMATED 297 10^3/uL (150-450); WHITE BLOOD COUNT 10.1 10^3/uL (4.0-10.0)
[2024-04-03 12:03] LABS: ERYTHROCYTE SEDIMENTATION RATE 19 mm/hr (0-20)
[2024-04-03 12:29] LABS: C REACTIVE PROTEIN QUANTITATIV < 0.40 MG/DL (<1.0)
[2024-04-03 12:31] LABS: ALBUMIN 3.1 G/DL (3.2-5.2); ALKALINE PHOSPHATASE 115 U/L (46-116); ALT/SGPT 25 U/L (7.0-40); AST/SGOT 23 U/L (<34); BILIRUBIN,TOTAL 0.4 MG/DL (0.3-1.2); BLOOD UREA NITROGEN 33 MG/DL (9-23); CALCIUM LEVEL 8.9 MG/DL (8.3-10.6); CARBON DIOXIDE LEVEL 24 MMOL/L (20-31); CHLORIDE LEVEL 105 MMOL/L (98-107); CREATININE FOR GFR 1.31 MG/DL (0.70-1.30); GLOMERULAR FILTRATION RATE 57.6 (>42); GLUCOSE, FASTING 182 MG/DL (74-106); SODIUM LEVEL 139 MMOL/L (136-145)
== END ==
LOC: M LAB REF 11:12
PROVIDERS: ATTEND Nurse Practitioner Adult Health
DX: M81.0 Age-related osteoporosis without current pathological fracture (principal)

== ENCOUNTER → 2024-04-10 | Outpatient (REF) | payer MEDICARE, OTHER ==
[2024-04-10 15:22] LABS: BASO % 0.3 % (0.0-1.0); EOS # 0.8 10^3/uL (0.0-0.5); EOS % 7.5 % (0.0-3.0); HEMATOCRIT 35.6 % (42.0-52.0); HEMOGLOBIN 11.1 g/dl (13.5-17.5); LYMPH # 1.5 10^3/uL (1.5-5.0); LYMPH % 13.4 % (24.0-44.0); MEAN CORPUSCULAR HEMOGLOBIN 28.9 pg (27.0-33.0); MEAN CORPUSCULAR HGB CONC 31.2 g/dl (32.0-36.5); MEAN CORPUSCULAR VOLUME 92.7 fl (80.0-96.0); MONO # 0.9 10^3/uL (0.0-0.8); NEUTROPHILS # 7.7 10^3/uL (1.5-8.5); NEUTROPHILS % 70.3 % (36.0-66.0); PLATELET COUNT, AUTOMATED 236 10^3/uL (150-450); RED BLOOD COUNT 3.84 10^6/uL (4.30-6.10); WHITE BLOOD COUNT 10.9 10^3/uL (4.0-10.0)
[2024-04-10 15:28] LABS: ERYTHROCYTE SEDIMENTATION RATE 33 mm/hr (0-20)
[2024-04-10 15:51] LABS: C REACTIVE PROTEIN QUANTITATIV 3.6 MG/DL (<1.0)
[2024-04-10 15:55] LABS: ALBUMIN 3.1 G/DL (3.2-5.2); BILIRUBIN,TOTAL 0.4 MG/DL (0.3-1.2); CALCIUM LEVEL 9.5 MG/DL (8.3-10.6); CREATININE FOR GFR 1.34 MG/DL (0.70-1.30); GLOMERULAR FILTRATION RATE 56.1 (>42); POTASSIUM SERUM 4.8 MMOL/L (3.5-5.1); TOTAL PROTEIN 5.8 G/DL (5.7-8.2)
== END ==
LOC: M LAB REF 14:47
PROVIDERS: ATTEND Nurse Practitioner Adult Health
DX: M81.0 Age-related osteoporosis without current pathological fracture (principal)

== ENCOUNTER → 2024-06-05 | Outpatient (REF) | payer MEDICARE, OTHER ==
[2024-06-05 15:02] LABS: BASO # 0.1 10^3/uL (0.0-0.2); BASO % 0.6 % (0.0-1.0); EOS # 0.6 10^3/uL (0.0-0.5); EOS % 5.7 % (0.0-3.0); HEMATOCRIT 27.9 % (42.0-52.0); HEMOGLOBIN 8.7 g/dl (13.5-17.5); LYMPH # 1.4 10^3/uL (1.5-5.0); LYMPH % 13.4 % (24.0-44.0); MEAN CORPUSCULAR HEMOGLOBIN 27.9 pg (27.0-33.0); MEAN CORPUSCULAR HGB CONC 31.2 g/dl (32.0-36.5); MEAN CORPUSCULAR VOLUME 89.4 fl (80.0-96.0); MONO # 0.8 10^3/uL (0.0-0.8); MONO % 7.3 % (2.0-8.0); NEUTROPHILS # 7.4 10^3/uL (1.5-8.5); NEUTROPHILS % 72.5 % (36.0-66.0); PLATELET COUNT, AUTOMATED 378 10^3/uL (150-450); RED BLOOD COUNT 3.12 10^6/uL (4.30-6.10); WHITE BLOOD COUNT 10.3 10^3/uL (4.0-10.0)
[2024-06-05 15:23] LABS: C REACTIVE PROTEIN QUANTITATIV 2.7 MG/DL (<1.0)
[2024-06-05 15:26] LABS: ALBUMIN 2.9 G/DL (3.2-5.2); BILIRUBIN,TOTAL 0.3 MG/DL (0.3-1.2); CALCIUM LEVEL 8.9 MG/DL (8.3-10.6); CREATININE FOR GFR 1.53 MG/DL (0.70-1.30); GLOMERULAR FILTRATION RATE 48.1 (>42); POTASSIUM SERUM 5.1 MMOL/L (3.5-5.1); TOTAL PROTEIN 5.9 G/DL (5.7-8.2)
[2024-06-05 17:07] LABS: ERYTHROCYTE SEDIMENTATION RATE 40 mm/hr (0-20)
== END ==
LOC: M LAB REF 13:05
PROVIDERS: ATTEND Nurse Practitioner
DX: R06.02 Shortness of breath (principal)

== ENCOUNTER → 2024-06-12 | Outpatient (REF) | payer MEDICARE, OTHER ==
[2024-06-12 17:22] LABS: BASO # 0.1 10^3/uL (0.0-0.2); BASO % 0.5 % (0.0-1.0); EOS # 0.6 10^3/uL (0.0-0.5); EOS % 6.5 % (0.0-3.0); HEMATOCRIT 29.9 % (42.0-52.0); LYMPH # 1.8 10^3/uL (1.5-5.0); LYMPH % 18.8 % (24.0-44.0); MEAN CORPUSCULAR HGB CONC 30.1 g/dl (32.0-36.5); MEAN CORPUSCULAR VOLUME 89.8 fl (80.0-96.0); MONO # 0.9 10^3/uL (0.0-0.8); MONO % 9.7 % (2.0-8.0); NEUTROPHILS # 6.2 10^3/uL (1.5-8.5); NEUTROPHILS % 63.9 % (36.0-66.0); PLATELET COUNT, AUTOMATED 328 10^3/uL (150-450); RED BLOOD COUNT 3.33 10^6/uL (4.30-6.10); WHITE BLOOD COUNT 9.7 10^3/uL (4.0-10.0)
[2024-06-12 17:33] LABS: ERYTHROCYTE SEDIMENTATION RATE 25 mm/hr (0-20)
[2024-06-12 17:47] LABS: C REACTIVE PROTEIN QUANTITATIV 1.8 MG/DL (<1.0)
[2024-06-12 17:49] LABS: ALBUMIN 3.1 G/DL (3.2-5.2); BILIRUBIN,TOTAL 0.3 MG/DL (0.3-1.2); CALCIUM LEVEL 9.2 MG/DL (8.3-10.6); CREATININE FOR GFR 1.72 MG/DL (0.70-1.30); GLOMERULAR FILTRATION RATE 42.1 (>42); POTASSIUM SERUM 5.1 MMOL/L (3.5-5.1)
== END ==
LOC: M LAB REF 15:49
PROVIDERS: ATTEND Nurse Practitioner
DX: R06.2 Wheezing (principal)

== ENCOUNTER → 2024-06-19 | Outpatient (REF) | payer MEDICARE, OTHER ==
[2024-06-19 16:20] LABS: BASO % 0.4 % (0.0-1.0); EOS # 0.5 10^3/uL (0.0-0.5); HEMATOCRIT 31.1 % (42.0-52.0); HEMOGLOBIN 9.5 g/dl (13.5-17.5); LYMPH # 1.4 10^3/uL (1.5-5.0); LYMPH % 17.2 % (24.0-44.0); MEAN CORPUSCULAR HGB CONC 30.5 g/dl (32.0-36.5); MEAN CORPUSCULAR VOLUME 88.4 fl (80.0-96.0); MONO # 0.7 10^3/uL (0.0-0.8); MONO % 8.8 % (2.0-8.0); NEUTROPHILS # 5.6 10^3/uL (1.5-8.5); NEUTROPHILS % 67.2 % (36.0-66.0); PLATELET COUNT, AUTOMATED 268 10^3/uL (150-450); RED BLOOD COUNT 3.52 10^6/uL (4.30-6.10); WHITE BLOOD COUNT 8.3 10^3/uL (4.0-10.0)
[2024-06-19 16:44] LABS: ERYTHROCYTE SEDIMENTATION RATE 24 mm/hr (0-20)
[2024-06-19 16:45] LABS: C REACTIVE PROTEIN QUANTITATIV 0.6 MG/DL (<1.0)
[2024-06-19 16:46] LABS: ALBUMIN 3.1 G/DL (3.2-5.2); BILIRUBIN,TOTAL 0.3 MG/DL (0.3-1.2); CALCIUM LEVEL 10.1 MG/DL (8.3-10.6); CREATININE FOR GFR 1.94 MG/DL (0.70-1.30); GLOMERULAR FILTRATION RATE 36.6 (>42); POTASSIUM SERUM 5.2 MMOL/L (3.5-5.1)
== END ==
LOC: M LAB REF 16:00
PROVIDERS: ATTEND Nurse Practitioner
DX: R06.02 Shortness of breath (principal)

== ENCOUNTER → 2024-06-26 | Outpatient (REF) | payer MEDICARE, OTHER ==
[2024-06-26 15:00] LABS: BASO % 0.3 % (0.0-1.0); EOS # 0.4 10^3/uL (0.0-0.5); EOS % 3.1 % (0.0-3.0); HEMATOCRIT 31.6 % (42.0-52.0); HEMOGLOBIN 9.8 g/dl (13.5-17.5); LYMPH # 1.6 10^3/uL (1.5-5.0); LYMPH % 13.4 % (24.0-44.0); MEAN CORPUSCULAR HEMOGLOBIN 27.2 pg (27.0-33.0); MEAN CORPUSCULAR VOLUME 87.8 fl (80.0-96.0); MONO # 1.2 10^3/uL (0.0-0.8); MONO % 9.9 % (2.0-8.0); NEUTROPHILS # 8.5 10^3/uL (1.5-8.5); PLATELET COUNT, AUTOMATED 265 10^3/uL (150-450); WHITE BLOOD COUNT 11.6 10^3/uL (4.0-10.0)
[2024-06-26 15:31] LABS: ALBUMIN 3.1 G/DL (3.2-5.2); BILIRUBIN,TOTAL 0.3 MG/DL (0.3-1.2); CALCIUM LEVEL 9.8 MG/DL (8.3-10.6); CREATININE FOR GFR 1.85 MG/DL (0.70-1.30); GLOMERULAR FILTRATION RATE 38.7 (>42); POTASSIUM SERUM 4.7 MMOL/L (3.5-5.1)
== END ==
LOC: M LAB REF 14:28
PROVIDERS: ATTEND Nurse Practitioner
DX: R06.02 Shortness of breath (principal)

== ENCOUNTER 2024-07-03 16:50 | Inpatient (IN) | payer MEDICARE, OTHER ==
[~2024-07-03] VITALS: Ht 177.8 cm; Wt 122.4 kg
[~2024-07-03 16:50] MED LIST changes: -ACET1TAB55 PO; -COLA100C5 PO; -CYCL5TAB PO; -LEVO750T14 PO; -NYST10006 TOP; -OXYC-517 PO; -SEMA1PEN2 INJ; -[UNRECOGNIZED DRUG - CODE] IV
[2024-07-03 17:56] LABS: HEMATOCRIT 24.2 % (42.0-52.0); HEMOGLOBIN 7.5 g/dl (13.5-17.5); MEAN CORPUSCULAR HEMOGLOBIN 27.2 pg (27.0-33.0); MEAN CORPUSCULAR VOLUME 87.7 fl (80.0-96.0); PLATELET COUNT, AUTOMATED 230 10^3/uL (150-450); RED BLOOD COUNT 2.76 10^6/uL (4.30-6.10); WHITE BLOOD COUNT 11.1 10^3/uL (4.0-10.0)
[2024-07-03 18:07] LABS: INR 1.38; PROTHROMBIN TIME 16.5 SECONDS (12.5-14.5)
[2024-07-03] MEDS ORDERED: SEMA1PEN2 INJ (18:34)
[2024-07-03] MEDS ORDERED: HOME MED LIST COMPLETE! XX SCH (18:35)
[2024-07-03 18:43] LABS: ERYTHROCYTE SEDIMENTATION RATE 23 mm/hr (0-20)
[2024-07-03 19:02] LABS: PROCALCITONIN 0.09 ng/ml
[2024-07-03 19:05] LABS: ALBUMIN 2.9 G/DL (3.2-5.2); BILIRUBIN,TOTAL 0.4 MG/DL (0.3-1.2); CALCIUM LEVEL 9.4 MG/DL (8.3-10.6); CREATININE FOR GFR 2.01 MG/DL (0.70-1.30); GLOMERULAR FILTRATION RATE 35.1 (>42); MAGNESIUM LEVEL 1.9 MG/DL (1.8-2.4); POTASSIUM SERUM 4.8 MMOL/L (3.5-5.1); TOTAL PROTEIN 5.8 G/DL (5.7-8.2)
[2024-07-03] MEDS ORDERED: GLUCOSE 4 GM CHEW PO PRN (19:10)
[2024-07-03] MEDS ORDERED: MOM 30ML SUSPENSION UDC PO PRN (19:10)
[2024-07-03] MEDS ORDERED: MAALOX 30 ML SUSP *UDC PO PRN (19:10)
[2024-07-03] MEDS ORDERED: DEXTROSE 50% 50ML SYRINGE IV PRN (19:10)
[2024-07-03] MEDS ORDERED: GLUCAGON INJ 1MG VIAL SC PRN (19:10)
[2024-07-03] MEDS: NS 1,000 ML IV SCH (19:40)
[2024-07-03] MEDS: NS 1,000 ML IV ONE (19:40)
[2024-07-03] MEDS: ATORVASTATIN 20 MG TAB PO SCH (20:31)
[2024-07-03] MEDS: INSULIN LISPRO (NovoLOG) PER UNIT SC SCH (20:31)
[2024-07-03] MEDS: DOCUSATE SODIUM 100MG CAPSULE PO SCH (20:31)
[2024-07-03] MEDS: OFLOXACIN 0.3 % (OCUFLOX) OPTH SOL 5ML OD SCH (20:31)
[2024-07-03] MEDS: atenoloL 25 MG TAB PO SCH (20:31)
[2024-07-03] MEDS ORDERED: LOSARTAN 50MG TABLET PO SCH (21:00)
[2024-07-03 21:20] VITALS: BP 115/56; TEMP 98; O2SAT 98
[2024-07-03 21:34] VITALS: BP 110/50; TEMP 98.6; O2SAT 98
[2024-07-03] MEDS ORDERED: LEVO750T14 PO (22:40)
[2024-07-03] MEDS ORDERED: [UNRECOGNIZED DRUG - CODE] IV (22:41)
[2024-07-03] MEDS ORDERED: CYCL5TAB PO (22:43)
[2024-07-03] MEDS ORDERED: OXYC-517 PO (22:43)
[2024-07-03] MEDS ORDERED: oxyCODONE 5MG TAB PO PRN (22:55)
[2024-07-03] MEDS ORDERED: CYCLOBENZAPRINE 5MG TABLET PO PRN (23:00)
[2024-07-03 23:30] VITALS: BP 114/38; TEMP 97.2; O2SAT 98
[2024-07-04] VITALS (11 sets, daily range): BP systolic 112–129; BP diastolic 55–59; TEMP 97–97.9; O2SAT 96–98
[2024-07-04 04:39] LABS: HEMATOCRIT 28.1 % (42.0-52.0); HEMOGLOBIN 8.9 g/dl (13.5-17.5); MEAN CORPUSCULAR HEMOGLOBIN 27.8 pg (27.0-33.0); MEAN CORPUSCULAR HGB CONC 31.7 g/dl (32.0-36.5); MEAN CORPUSCULAR VOLUME 87.8 fl (80.0-96.0); PLATELET COUNT, AUTOMATED 205 10^3/uL (150-450); WHITE BLOOD COUNT 8.8 10^3/uL (4.0-10.0)
[2024-07-04 05:31] LABS: ALBUMIN 2.7 G/DL (3.2-5.2); BILIRUBIN,TOTAL 0.8 MG/DL (0.3-1.2); CALCIUM LEVEL 8.9 MG/DL (8.3-10.6); CREATININE FOR GFR 1.85 MG/DL (0.70-1.30); GLOMERULAR FILTRATION RATE 38.7 (>42); MAGNESIUM LEVEL 1.8 MG/DL (1.8-2.4); POTASSIUM SERUM 4.3 MMOL/L (3.5-5.1); TOTAL PROTEIN 5.3 G/DL (5.7-8.2)
[2024-07-04] MEDS: SODIUM CHLORIDE 0.9% INJ 10 ML SYR IV SCH (06:36)
[2024-07-04] MEDS: INSULIN LISPRO (NovoLOG) PER UNIT SC SCH (07:30)
[2024-07-04] MEDS: CelecoXIB (CeleBREX) 100 MG CAP PO SCH (07:46)
[2024-07-04] MEDS: LevoFLOXacin 750 MG TABLET PO SCH (07:46)
[2024-07-04] MEDS ORDERED: DAPTOmycin 900 MG in NS 50 ML IV SCH (09:00)
[2024-07-04] MEDS ORDERED: SEMAGLUTIDE 1 MG/0.75 ML SQ SCH (09:00)
[2024-07-04] MEDS: NS 1,000 ML IV SCH (09:17)
[2024-07-04] MEDS: DAPTOmycin 900 MG in NS 50 ML IV SCH (12:05)
[2024-07-04] MEDS ORDERED: MIDAZOLAM INJ 2MG/2ML VIAL As Ordered ONE (14:25)
[2024-07-04] MEDS ORDERED: LIDOCAINE 1% MDV 20ML VIAL As Ordered ONE (14:25)
[2024-07-04] MEDS ORDERED: ISOVUE-300 61% 100ML VIAL As Ordered ONE (14:25)
[2024-07-04] MEDS ORDERED: fentaNYL 100 MCG/2 ML INJECTION As Ordered ONE (14:25)
[2024-07-05 03:00] VITALS: BP 129/57; TEMP 97.7; O2SAT 95
[2024-07-05] MEDS: SODIUM CHLORIDE 0.9% INJ 10 ML SYR IV PRN (05:46)
[2024-07-05 05:59] LABS: HEMATOCRIT 28.1 % (42.0-52.0); HEMOGLOBIN 8.9 g/dl (13.5-17.5); MEAN CORPUSCULAR HEMOGLOBIN 27.7 pg (27.0-33.0); MEAN CORPUSCULAR HGB CONC 31.7 g/dl (32.0-36.5); MEAN CORPUSCULAR VOLUME 87.5 fl (80.0-96.0); PLATELET COUNT, AUTOMATED 201 10^3/uL (150-450); RED BLOOD COUNT 3.21 10^6/uL (4.30-6.10); WHITE BLOOD COUNT 7.4 10^3/uL (4.0-10.0)
[2024-07-05 06:23] LABS: ALBUMIN 2.6 G/DL (3.2-5.2); BILIRUBIN,TOTAL 0.5 MG/DL (0.3-1.2); CALCIUM LEVEL 8.3 MG/DL (8.3-10.6); CREATININE FOR GFR 1.57 MG/DL (0.70-1.30); GLOMERULAR FILTRATION RATE 46.7 (>42); POTASSIUM SERUM 4.4 MMOL/L (3.5-5.1); TOTAL PROTEIN 5.1 G/DL (5.7-8.2)
[2024-07-05 07:44] VITALS: BP 142/64; TEMP 97.3; O2SAT 97
[2024-07-05 08:01] VITALS: BP 142/64; TEMP 97.3; O2SAT 97
[2024-07-05] MEDS: LevoFLOXacin 750 MG TABLET PO SCH (08:36)
[2024-07-05 11:38] VITALS: BP 123/57; TEMP 97.2; O2SAT 98
[2024-07-05 19:57] VITALS: BP 166/91; TEMP 97.3; O2SAT 97
[2024-07-05 21:13] VITALS: TEMP 98.4
[2024-07-06 04:00] VITALS: BP 131/69; TEMP 97.9; O2SAT 94
[2024-07-06 05:08] LABS: HEMATOCRIT 28.1 % (42.0-52.0); MEAN CORPUSCULAR VOLUME 87.5 fl (80.0-96.0); PLATELET COUNT, AUTOMATED 216 10^3/uL (150-450); RED BLOOD COUNT 3.21 10^6/uL (4.30-6.10); WHITE BLOOD COUNT 7.1 10^3/uL (4.0-10.0)
[2024-07-06 05:30] VITALS: TEMP 98.5
[2024-07-06 05:33] LABS: ALBUMIN 2.6 G/DL (3.2-5.2); BILIRUBIN,TOTAL 0.4 MG/DL (0.3-1.2); CALCIUM LEVEL 8.7 MG/DL (8.3-10.6); CREATININE FOR GFR 1.51 MG/DL (0.70-1.30); GLOMERULAR FILTRATION RATE 48.9 (>42); POTASSIUM SERUM 4.4 MMOL/L (3.5-5.1); TOTAL PROTEIN 5.3 G/DL (5.7-8.2)
[2024-07-06] MEDS: ACETAMINOPHEN TAB 650MG DOSE (2X325MG) PO PRN (06:26)
[2024-07-06] MEDS: NYSTATIN 100,000 UNITS/GM TOPICAL PWD 15GM TOP SCH (09:00)
[2024-07-06 12:00] VITALS: BP 131/89; TEMP 97; O2SAT 96
[2024-07-06 16:15] LABS: C REACTIVE PROTEIN QUANTITATIV 3.4 MG/DL (<1.0)
[2024-07-06 20:00] VITALS: BP 125/62; TEMP 97.5; O2SAT 98
[2024-07-06] MEDS: HYDROCORTISONE 2.5% 20GM OINTMENT TOP SCH (20:37)
[2024-07-07] MEDS: UNRESOLVED PATIENT OWN MED ORDER XX SCH (00:01)
[2024-07-07 03:59] VITALS: BP 143/69; TEMP 97.7; O2SAT 97
[2024-07-07 05:33] LABS: HEMATOCRIT 29.8 % (42.0-52.0); HEMOGLOBIN 9.5 g/dl (13.5-17.5); MEAN CORPUSCULAR HGB CONC 31.9 g/dl (32.0-36.5); MEAN CORPUSCULAR VOLUME 87.9 fl (80.0-96.0); PLATELET COUNT, AUTOMATED 229 10^3/uL (150-450); RED BLOOD COUNT 3.39 10^6/uL (4.30-6.10)
[2024-07-07 06:07] LABS: ALBUMIN 2.7 G/DL (3.2-5.2); BILIRUBIN,TOTAL 0.5 MG/DL (0.3-1.2); CREATININE FOR GFR 1.55 MG/DL (0.70-1.30); GLOMERULAR FILTRATION RATE 47.4 (>42); POTASSIUM SERUM 4.4 MMOL/L (3.5-5.1); TOTAL PROTEIN 5.6 G/DL (5.7-8.2)
[2024-07-07 08:25] VITALS: BP 137/93; TEMP 97.2; O2SAT 97
[2024-07-07 09:32] VITALS: BP 137/93
[2024-07-07] MEDS ORDERED: UNRESOLVED PATIENT OWN MED ORDER XX SCH (10:00)
[2024-07-07] MEDS ORDERED: ISOVUE-370 76% 100ML VIAL As Ordered ONE (11:27)
[2024-07-07 12:00] VITALS: BP 137/70; TEMP 97; O2SAT 97
[2024-07-07] MEDS ORDERED: NYST10006 TOP (16:59)
[2024-07-07] MEDS ORDERED: ACET1TAB55 PO (16:59)
[2024-07-07] MEDS ORDERED: COLA100C5 PO (16:59)
== END 2024-07-07 19:06 | disposition home health service (06) | DRG 813 ==
LOC: EDBD 16:50 → M ED 16:50 → M ED INP 19:08 → M MSPAV 23:09
PROVIDERS: ADMIT Family Medicine; ATTEND Internal Medicine
PROC: 30233N1 Transfusion of Nonautologous Red Blood Cells into Peripheral Vein, Percutaneous Approach (ICD-10-PCS; 2024-07-03)
PROC: 0J9C30Z Drainage of Pelvic Region Subcutaneous Tissue and Fascia with Drainage Device, Percutaneous Approach (ICD-10-PCS; principal; 2024-07-05)
DX: D68.32 Hemorrhagic disorder due to extrinsic circulating anticoagulants (principal); M86.662 Other chronic osteomyelitis, left tibia and fibula; N17.9 Acute kidney failure, unspecified; T84.52XA Infection and inflammatory reaction due to internal left hip prosthesis, initial encounter; D62 Acute posthemorrhagic anemia; E11.22 Type 2 diabetes mellitus with diabetic chronic kidney disease; I12.9 Hypertensive chronic kidney disease with stage 1 through stage 4 chronic kidney disease, or unspecified chronic kidney disease; E78.5 Hyperlipidemia, unspecified; M79.81 Nontraumatic hematoma of soft tissue; I48.0 Paroxysmal atrial fibrillation; N18.30 Chronic kidney disease, stage 3 unspecified; E66.01 Morbid (severe) obesity due to excess calories; Y83.1 Surgical operation with implant of artificial internal device as the cause of abnormal reaction of the patient, or of later complication, without mention of misadventure at the time of the procedure; Z79.01 Long term (current) use of anticoagulants; Z79.899 Other long term (current) drug therapy; Z88.1 Allergy status to other antibiotic agents; Z88.8 Allergy status to other drugs, medicaments and biological substances; Z96.653 Presence of artificial knee joint, bilateral; Z98.41 Cataract extraction status, right eye; Z98.42 Cataract extraction status, left eye; Z90.49 Acquired absence of other specified parts of digestive tract; Z87.891 Personal history of nicotine dependence

== ENCOUNTER → 2024-07-03 | Outpatient (REF) | payer MEDICARE, OTHER ==
[~2024-07-03] MED LIST changes: +ACET1TAB55 PO; +COLA100C5 PO; +CYCL5TAB PO; +LEVO750T14 PO; +NYST10006 TOP; +OFLO5DRO OD; -OFLO5DRO OU; +OXYC-517 PO; +SEMA1PEN2 INJ; +[UNRECOGNIZED DRUG - CODE] IV
[2024-07-03 14:17] LABS: BASO % 0.3 % (0.0-1.0); EOS # 0.4 10^3/uL (0.0-0.5); HEMATOCRIT 21.6 % (42.0-52.0); LYMPH # 1.5 10^3/uL (1.5-5.0); LYMPH % 13.7 % (24.0-44.0); MEAN CORPUSCULAR HEMOGLOBIN 27.3 pg (27.0-33.0); MEAN CORPUSCULAR VOLUME 88.2 fl (80.0-96.0); MONO # 0.8 10^3/uL (0.0-0.8); MONO % 7.3 % (2.0-8.0); NEUTROPHILS # 7.9 10^3/uL (1.5-8.5); NEUTROPHILS % 74.2 % (36.0-66.0); PLATELET COUNT, AUTOMATED 225 10^3/uL (150-450); RED BLOOD COUNT 2.45 10^6/uL (4.30-6.10); WHITE BLOOD COUNT 10.6 10^3/uL (4.0-10.0)
[2024-07-03 14:26] LABS: HEMOGLOBIN 6.7 g/dl (13.5-17.5)
[2024-07-03 14:30] LABS: ERYTHROCYTE SEDIMENTATION RATE 12 mm/hr (0-20)
[2024-07-03 14:41] LABS: C REACTIVE PROTEIN QUANTITATIV 3.5 MG/DL (<1.0)
[2024-07-03 14:43] LABS: ALBUMIN 2.7 G/DL (3.2-5.2); BILIRUBIN,TOTAL 0.3 MG/DL (0.3-1.2); CALCIUM LEVEL 9.3 MG/DL (8.3-10.6); CREATININE FOR GFR 1.96 MG/DL (0.70-1.30); GLOMERULAR FILTRATION RATE 36.2 (>42); POTASSIUM SERUM 4.4 MMOL/L (3.5-5.1); TOTAL PROTEIN 5.4 G/DL (5.7-8.2)
== END ==
LOC: M LAB REF 14:01
PROVIDERS: ATTEND Nurse Practitioner
DX: R06.02 Shortness of breath (principal)

== ENCOUNTER → 2024-07-12 | Outpatient (REF) | payer MEDICARE, OTHER ==
[~2024-07-12] MED LIST changes: +ACET1TAB55 PO; +COLA100C5 PO; +CYCL5TAB PO; +LEVO750T14 PO; +NYST10006 TOP; +OXYC-517 PO; +SEMA1PEN2 INJ; +[UNRECOGNIZED DRUG - CODE] IV
[2024-07-12 14:07] LABS: HEMOGLOBIN 10.7 g/dl (13.5-17.5); MEAN CORPUSCULAR HEMOGLOBIN 27.8 pg (27.0-33.0); MEAN CORPUSCULAR HGB CONC 31.5 g/dl (32.0-36.5); MEAN CORPUSCULAR VOLUME 88.3 fl (80.0-96.0); PLATELET COUNT, AUTOMATED 337 10^3/uL (150-450); RED BLOOD COUNT 3.85 10^6/uL (4.30-6.10); WHITE BLOOD COUNT 9.8 10^3/uL (4.0-10.0)
== END ==
LOC: M LAB REF 13:51
PROVIDERS: ATTEND Internal Medicine
DX: D62 Acute posthemorrhagic anemia (principal); S70.00XA Contusion of unspecified hip, initial encounter

== ENCOUNTER → 2024-07-18 | Outpatient (REF) | payer MEDICARE, OTHER ==
[2024-07-18 14:24] LABS: BASO # 0.1 10^3/uL (0.0-0.2); BASO % 0.6 % (0.0-1.0); EOS # 0.3 10^3/uL (0.0-0.5); EOS % 3.2 % (0.0-3.0); HEMOGLOBIN 11.6 g/dl (13.5-17.5); LYMPH # 1.7 10^3/uL (1.5-5.0); LYMPH % 15.6 % (24.0-44.0); MEAN CORPUSCULAR HEMOGLOBIN 27.4 pg (27.0-33.0); MEAN CORPUSCULAR HGB CONC 30.5 g/dl (32.0-36.5); MEAN CORPUSCULAR VOLUME 89.6 fl (80.0-96.0); MONO # 0.7 10^3/uL (0.0-0.8); MONO % 6.6 % (2.0-8.0); NEUTROPHILS % 73.5 % (36.0-66.0); PLATELET COUNT, AUTOMATED 350 10^3/uL (150-450); RED BLOOD COUNT 4.24 10^6/uL (4.30-6.10); WHITE BLOOD COUNT 10.8 10^3/uL (4.0-10.0)
== END ==
LOC: M LAB REF 13:23
PROVIDERS: ATTEND Internal Medicine
DX: T84.52XS Infection and inflammatory reaction due to internal left hip prosthesis, sequela (principal)

== ENCOUNTER → 2024-07-24 | Outpatient (REF) | payer MEDICARE, OTHER ==
[2024-07-24 13:28] LABS: BASO # 0.1 10^3/uL (0.0-0.2); BASO % 0.7 % (0.0-1.0); EOS # 0.4 10^3/uL (0.0-0.5); EOS % 4.3 % (0.0-3.0); HEMATOCRIT 37.3 % (42.0-52.0); HEMOGLOBIN 11.4 g/dl (13.5-17.5); LYMPH # 1.9 10^3/uL (1.5-5.0); LYMPH % 18.9 % (24.0-44.0); MEAN CORPUSCULAR HEMOGLOBIN 27.7 pg (27.0-33.0); MEAN CORPUSCULAR HGB CONC 30.6 g/dl (32.0-36.5); MEAN CORPUSCULAR VOLUME 90.5 fl (80.0-96.0); MONO # 0.9 10^3/uL (0.0-0.8); MONO % 9.2 % (2.0-8.0); NEUTROPHILS # 6.6 10^3/uL (1.5-8.5); NEUTROPHILS % 66.5 % (36.0-66.0); PLATELET COUNT, AUTOMATED 299 10^3/uL (150-450); RED BLOOD COUNT 4.12 10^6/uL (4.30-6.10); WHITE BLOOD COUNT 9.9 10^3/uL (4.0-10.0)
== END ==
LOC: M LAB REF 12:09
PROVIDERS: ATTEND Internal Medicine
DX: T84.52XS Infection and inflammatory reaction due to internal left hip prosthesis, sequela (principal)

== ENCOUNTER → 2024-07-31 | Outpatient (REF) | payer MEDICARE, OTHER ==
[2024-07-31 11:27] LABS: BASO # 0.1 10^3/uL (0.0-0.2); BASO % 0.5 % (0.0-1.0); EOS # 0.3 10^3/uL (0.0-0.5); EOS % 3.2 % (0.0-3.0); HEMATOCRIT 38.9 % (42.0-52.0); HEMOGLOBIN 12.1 g/dl (13.5-17.5); LYMPH # 1.8 10^3/uL (1.5-5.0); LYMPH % 16.4 % (24.0-44.0); MEAN CORPUSCULAR HEMOGLOBIN 27.6 pg (27.0-33.0); MEAN CORPUSCULAR HGB CONC 31.1 g/dl (32.0-36.5); MEAN CORPUSCULAR VOLUME 88.8 fl (80.0-96.0); MONO # 0.9 10^3/uL (0.0-0.8); MONO % 8.4 % (2.0-8.0); NEUTROPHILS # 7.6 10^3/uL (1.5-8.5); NEUTROPHILS % 71.1 % (36.0-66.0); PLATELET COUNT, AUTOMATED 287 10^3/uL (150-450); RED BLOOD COUNT 4.38 10^6/uL (4.30-6.10); WHITE BLOOD COUNT 10.7 10^3/uL (4.0-10.0)
== END ==
LOC: M LAB REF 10:36
PROVIDERS: ATTEND Internal Medicine
DX: T84.52XS Infection and inflammatory reaction due to internal left hip prosthesis, sequela (principal)

== ENCOUNTER → 2024-08-03 | Outpatient (CLI) | payer MEDICARE, OTHER ==
[~2024-08-03] MED LIST changes: +ISOVUE-300 61% 100ML VIAL As Ordered ONE; +LIDOCAINE 1% MDV 20ML VIAL As Ordered ONE
[2024-08-03 09:45] VITALS: TEMP 97.3
[2024-08-03 10:55] VITALS: BP 130/62; O2SAT 97
== END ==
LOC: M IRPRO 09:36
PROVIDERS: ATTEND Radiology Diagnostic Radiology
DX: T84.52XS Infection and inflammatory reaction due to internal left hip prosthesis, sequela (principal)
CPT/HCPCS: 49422; Q9967

== ENCOUNTER → 2024-08-07 | Outpatient (REF) | payer MEDICARE, OTHER ==
[~2024-08-07] MED LIST changes: -ISOVUE-300 61% 100ML VIAL As Ordered ONE; -LIDOCAINE 1% MDV 20ML VIAL As Ordered ONE
[2024-08-07 16:03] LABS: BASO % 0.4 % (0.0-1.0); EOS # 0.3 10^3/uL (0.0-0.5); EOS % 3.1 % (0.0-3.0); HEMATOCRIT 39.1 % (42.0-52.0); HEMOGLOBIN 12.2 g/dl (13.5-17.5); LYMPH # 1.7 10^3/uL (1.5-5.0); LYMPH % 17.3 % (24.0-44.0); MEAN CORPUSCULAR HEMOGLOBIN 28.1 pg (27.0-33.0); MEAN CORPUSCULAR HGB CONC 31.2 g/dl (32.0-36.5); MEAN CORPUSCULAR VOLUME 90.1 fl (80.0-96.0); MONO # 0.9 10^3/uL (0.0-0.8); MONO % 8.9 % (2.0-8.0); NEUTROPHILS # 6.9 10^3/uL (1.5-8.5); PLATELET COUNT, AUTOMATED 262 10^3/uL (150-450); RED BLOOD COUNT 4.34 10^6/uL (4.30-6.10); WHITE BLOOD COUNT 9.9 10^3/uL (4.0-10.0)
[2024-08-07 16:09] LABS: ERYTHROCYTE SEDIMENTATION RATE 38 mm/hr (0-20)
== END ==
LOC: M LAB REF 15:06
PROVIDERS: ATTEND Internal Medicine Infectious Disease
DX: M86.652 Other chronic osteomyelitis, left thigh (principal); T84.52XA Infection and inflammatory reaction due to internal left hip prosthesis, initial encounter; Y83.1 Surgical operation with implant of artificial internal device as the cause of abnormal reaction of the patient, or of later complication, without mention of misadventure at the time of the procedure

== ENCOUNTER → 2024-09-25 | Outpatient (REF) | payer MEDICARE, OTHER ==
[~2024-09-25] MED LIST changes: -CYCL5TAB PO; +CYCL5TAB4 PO; -LEVO750T14 PO; +LEVO75TAB PO
[2024-09-25 13:38] LABS: BASO % 0.3 % (0.0-1.0); EOS # 0.3 10^3/uL (0.0-0.5); HEMATOCRIT 35.1 % (42.0-52.0); HEMOGLOBIN 10.7 g/dl (13.5-17.5); LYMPH # 1.5 10^3/uL (1.5-5.0); LYMPH % 15.9 % (24.0-44.0); MEAN CORPUSCULAR HEMOGLOBIN 29.1 pg (27.0-33.0); MEAN CORPUSCULAR HGB CONC 30.5 g/dl (32.0-36.5); MEAN CORPUSCULAR VOLUME 95.4 fl (80.0-96.0); MONO # 0.7 10^3/uL (0.0-0.8); MONO % 7.5 % (2.0-8.0); NEUTROPHILS # 6.7 10^3/uL (1.5-8.5); NEUTROPHILS % 72.9 % (36.0-66.0); PLATELET COUNT, AUTOMATED 157 10^3/uL (150-450); RED BLOOD COUNT 3.68 10^6/uL (4.30-6.10); WHITE BLOOD COUNT 9.2 10^3/uL (4.0-10.0)
[2024-09-25 14:06] LABS: CALCIUM LEVEL 9.7 MG/DL (8.3-10.6); CREATININE FOR GFR 1.27 MG/DL (0.70-1.30); GLOMERULAR FILTRATION RATE 59.7 (>42); POTASSIUM SERUM 4.7 MMOL/L (3.5-5.1)
== END ==
LOC: M LAB REF 13:13
PROVIDERS: ATTEND Internal Medicine
DX: Z79.01 Long term (current) use of anticoagulants (principal); I48.0 Paroxysmal atrial fibrillation; D50.0 Iron deficiency anemia secondary to blood loss (chronic)

== ENCOUNTER → 2024-10-09 | Outpatient (CLI) | payer MEDICARE, OTHER | LOC: M PLAIMG 12:38 | PROVIDERS: ATTEND Physician Assistant | DX: I08.0 Rheumatic disorders of both mitral and aortic valves (principal) ==

== ENCOUNTER → 2024-10-10 | Outpatient (REF) | payer MEDICARE, OTHER ==
[2024-10-10 14:07] LABS: BASO # 0.1 10^3/uL (0.0-0.2); BASO % 0.3 % (0.0-1.0); EOS # 0.2 10^3/uL (0.0-0.5); EOS % 1.1 % (0.0-3.0); HEMATOCRIT 37.1 % (42.0-52.0); HEMOGLOBIN 11.2 g/dl (13.5-17.5); LYMPH # 1.6 10^3/uL (1.5-5.0); LYMPH % 10.1 % (24.0-44.0); MEAN CORPUSCULAR HEMOGLOBIN 27.4 pg (27.0-33.0); MEAN CORPUSCULAR HGB CONC 30.2 g/dl (32.0-36.5); MEAN CORPUSCULAR VOLUME 90.7 fl (80.0-96.0); MONO # 0.9 10^3/uL (0.0-0.8); MONO % 5.5 % (2.0-8.0); NEUTROPHILS # 12.9 10^3/uL (1.5-8.5); NEUTROPHILS % 81.8 % (36.0-66.0); PLATELET COUNT, AUTOMATED 296 10^3/uL (150-450); RED BLOOD COUNT 4.09 10^6/uL (4.30-6.10); WHITE BLOOD COUNT 15.7 10^3/uL (4.0-10.0)
[2024-10-10 14:16] LABS: ERYTHROCYTE SEDIMENTATION RATE 100 mm/hr (0-20)
[2024-10-10 14:29] LABS: ALBUMIN 2.1 G/DL (3.2-5.2); ALKALINE PHOSPHATASE 114 U/L (40-129); ALT/SGPT 31 U/L (7.0-40); AST/SGOT 30 U/L (<34); BILIRUBIN,TOTAL 0.3 MG/DL (0.3-1.2); BLOOD UREA NITROGEN 23 MG/DL (9-23); C REACTIVE PROTEIN QUANTITATIV 7.99 MG/DL (<1.0); CALCIUM LEVEL 9.7 MG/DL (8.3-10.6); CARBON DIOXIDE LEVEL 28 MMOL/L (20-31); CHLORIDE LEVEL 103 MMOL/L (98-107); GLOMERULAR FILTRATION RATE > 60.0 (>42); GLUCOSE, FASTING 110 MG/DL (74-106); POTASSIUM SERUM 4.8 MMOL/L (3.5-5.1); SODIUM LEVEL 138 MMOL/L (136-145); TOTAL PROTEIN 6.2 G/DL (5.7-8.2)
== END ==
LOC: M LAB REF 13:34
PROVIDERS: ATTEND Internal Medicine Infectious Disease
DX: T84.52XA Infection and inflammatory reaction due to internal left hip prosthesis, initial encounter (principal); Y83.1 Surgical operation with implant of artificial internal device as the cause of abnormal reaction of the patient, or of later complication, without mention of misadventure at the time of the procedure

== ENCOUNTER → 2024-10-30 | Outpatient (REF) | payer MEDICARE, OTHER ==
[2024-10-30 16:03] LABS: HEMATOCRIT 24.1 % (42.0-52.0); HEMOGLOBIN 7.2 g/dl (13.5-17.5); MEAN CORPUSCULAR HEMOGLOBIN 27.7 pg (27.0-33.0); MEAN CORPUSCULAR HGB CONC 29.9 g/dl (32.0-36.5); MEAN CORPUSCULAR VOLUME 92.7 fl (80.0-96.0); PLATELET COUNT, AUTOMATED 192 10^3/uL (150-450); WHITE BLOOD COUNT 9.8 10^3/uL (4.0-10.0)
[2024-10-30 16:16] LABS: ERYTHROCYTE SEDIMENTATION RATE 35 mm/hr (0-20)
[2024-10-30 16:37] LABS: C REACTIVE PROTEIN QUANTITATIV 3.9 MG/DL (<1.0)
[2024-10-30 16:38] LABS: CALCIUM LEVEL 8.3 MG/DL (8.3-10.6); CREATININE FOR GFR 1.32 MG/DL (0.70-1.30); GLOMERULAR FILTRATION RATE 57.1 (>42)
== END ==
LOC: M LAB REF 14:49
PROVIDERS: ATTEND Internal Medicine Infectious Disease
DX: T84.52XA Infection and inflammatory reaction due to internal left hip prosthesis, initial encounter (principal); Y83.1 Surgical operation with implant of artificial internal device as the cause of abnormal reaction of the patient, or of later complication, without mention of misadventure at the time of the procedure

== ENCOUNTER → 2024-10-31 | Outpatient (REF) | payer MEDICARE, OTHER | LOC: M LAB REF 15:47 | PROVIDERS: ATTEND Internal Medicine | DX: D50.0 Iron deficiency anemia secondary to blood loss (chronic) (principal) ==

== ENCOUNTER 2024-11-01 10:30 | Outpatient (CLI) | payer MEDICARE, OTHER ==
[2024-11-01] VITALS (7 sets, daily range): BP systolic 111–139; BP diastolic 49–57; TEMP 97.5–98.1; O2SAT 95–98
[2024-11-01] MEDS: diphenhydrAMINE 25MG CAP PO ONE (11:06)
[2024-11-01] MEDS: ACETAMINOPHEN 650 MG PO ONE (11:08)
[2024-11-01] MEDS: NS (Normal Saline) 0.9% 250 ML IV ONE (11:08)
== END 2024-11-01 16:45 | disposition home or self-care (01) ==
LOC: M OPCLI5PR 10:30 → M MS5PR 10:33 → M OPCLI5PR 16:45
PROVIDERS: ATTEND Internal Medicine
DX: D50.0 Iron deficiency anemia secondary to blood loss (chronic) (principal); Z88.1 Allergy status to other antibiotic agents; Z88.8 Allergy status to other drugs, medicaments and biological substances
CPT/HCPCS: 36430; P9016

== ENCOUNTER → 2024-11-06 | Outpatient (REF) | payer MEDICARE, OTHER ==
[2024-11-06 12:26] LABS: BASO # 0.1 10^3/uL (0.0-0.2); BASO % 0.8 % (0.0-1.0); EOS # 0.5 10^3/uL (0.0-0.5); EOS % 5.7 % (0.0-3.0); HEMATOCRIT 30.7 % (42.0-52.0); HEMOGLOBIN 9.1 g/dl (13.5-17.5); LYMPH # 1.1 10^3/uL (1.5-5.0); LYMPH % 12.6 % (24.0-44.0); MEAN CORPUSCULAR HEMOGLOBIN 26.9 pg (27.0-33.0); MEAN CORPUSCULAR HGB CONC 29.6 g/dl (32.0-36.5); MEAN CORPUSCULAR VOLUME 90.8 fl (80.0-96.0); MONO # 0.8 10^3/uL (0.0-0.8); MONO % 9.5 % (2.0-8.0); NEUTROPHILS % 71.2 % (36.0-66.0); PLATELET COUNT, AUTOMATED 216 10^3/uL (150-450); RED BLOOD COUNT 3.38 10^6/uL (4.30-6.10); WHITE BLOOD COUNT 8.4 10^3/uL (4.0-10.0)
[2024-11-06 12:37] LABS: ERYTHROCYTE SEDIMENTATION RATE 59 mm/hr (0-20)
[2024-11-06 13:00] LABS: ALKALINE PHOSPHATASE 106 U/L (40-129); ALT/SGPT 12 U/L (7.0-40); AST/SGOT 22 U/L (<34); BILIRUBIN,TOTAL 0.4 MG/DL (0.3-1.2); BLOOD UREA NITROGEN 18 MG/DL (9-23); C REACTIVE PROTEIN QUANTITATIV 7.68 MG/DL (<1.0); CALCIUM LEVEL 8.5 MG/DL (8.3-10.6); CARBON DIOXIDE LEVEL 29 MMOL/L (20-31); CHLORIDE LEVEL 105 MMOL/L (98-107); CREATININE FOR GFR 1.26 MG/DL (0.70-1.30); GLOMERULAR FILTRATION RATE > 60.0 (>42); GLUCOSE, FASTING 133 MG/DL (74-106); POTASSIUM SERUM 4.7 MMOL/L (3.5-5.1); SODIUM LEVEL 144 MMOL/L (136-145); TOTAL PROTEIN 5.6 G/DL (5.7-8.2)
== END ==
LOC: M LAB REF 11:54
PROVIDERS: ATTEND Internal Medicine Infectious Disease
DX: T84.018A Broken internal joint prosthesis, other site, initial encounter (principal); T84.59XD Infection and inflammatory reaction due to other internal joint prosthesis, subsequent encounter; Z96.649 Presence of unspecified artificial hip joint; T84.59XS Infection and inflammatory reaction due to other internal joint prosthesis, sequela

== ENCOUNTER → 2024-11-13 | Outpatient (REF) | payer MEDICARE, OTHER ==
[2024-11-13 14:30] LABS: BASO # 0.1 10^3/uL (0.0-0.2); BASO % 0.5 % (0.0-1.0); EOS # 0.7 10^3/uL (0.0-0.5); HEMATOCRIT 35.5 % (42.0-52.0); HEMOGLOBIN 10.4 g/dl (13.5-17.5); LYMPH # 2.1 10^3/uL (1.5-5.0); LYMPH % 22.3 % (24.0-44.0); MEAN CORPUSCULAR HEMOGLOBIN 27.2 pg (27.0-33.0); MEAN CORPUSCULAR HGB CONC 29.3 g/dl (32.0-36.5); MEAN CORPUSCULAR VOLUME 92.7 fl (80.0-96.0); MONO # 0.6 10^3/uL (0.0-0.8); MONO % 6.1 % (2.0-8.0); NEUTROPHILS # 5.7 10^3/uL (1.5-8.5); NEUTROPHILS % 62.4 % (36.0-66.0); RED BLOOD COUNT 3.83 10^6/uL (4.30-6.10); WHITE BLOOD COUNT 9.2 10^3/uL (4.0-10.0)
[2024-11-13 14:52] LABS: ALBUMIN 2.6 G/DL (3.2-5.2); ALKALINE PHOSPHATASE 127 U/L (40-129); ALT/SGPT 17 U/L (7.0-40); AST/SGOT 24 U/L (<34); BILIRUBIN,TOTAL 0.4 MG/DL (0.3-1.2); BLOOD UREA NITROGEN 16 MG/DL (9-23); C REACTIVE PROTEIN QUANTITATIV 4.05 MG/DL (<1.0); CALCIUM LEVEL 8.8 MG/DL (8.3-10.6); CARBON DIOXIDE LEVEL 28 MMOL/L (20-31); CHLORIDE LEVEL 105 MMOL/L (98-107); CREATININE FOR GFR 1.07 MG/DL (0.70-1.30); GLOMERULAR FILTRATION RATE > 60.0 (>42); GLUCOSE, FASTING 189 MG/DL (74-106); POTASSIUM SERUM 4.9 MMOL/L (3.5-5.1); SODIUM LEVEL 142 MMOL/L (136-145); TOTAL PROTEIN 6.5 G/DL (5.7-8.2)
[2024-11-13 14:54] LABS: ERYTHROCYTE SEDIMENTATION RATE 74 mm/hr (0-20)
== END ==
LOC: M LAB REF 14:09
PROVIDERS: ATTEND Internal Medicine Infectious Disease
DX: T84.018A Broken internal joint prosthesis, other site, initial encounter (principal); T84.59XD Infection and inflammatory reaction due to other internal joint prosthesis, subsequent encounter; Z96.649 Presence of unspecified artificial hip joint; T84.59XS Infection and inflammatory reaction due to other internal joint prosthesis, sequela; Y83.1 Surgical operation with implant of artificial internal device as the cause of abnormal reaction of the patient, or of later complication, without mention of misadventure at the time of the procedure

== ENCOUNTER → 2024-11-20 | Outpatient (REF) | payer MEDICARE, OTHER ==
[2024-11-20 14:35] LABS: BASO # 0.1 10^3/uL (0.0-0.2); BASO % 0.8 % (0.0-1.0); EOS # 0.3 10^3/uL (0.0-0.5); EOS % 3.5 % (0.0-3.0); HEMATOCRIT 33.5 % (42.0-52.0); HEMOGLOBIN 9.8 g/dl (13.5-17.5); LYMPH # 2.1 10^3/uL (1.5-5.0); LYMPH % 23.3 % (24.0-44.0); MEAN CORPUSCULAR HEMOGLOBIN 26.8 pg (27.0-33.0); MEAN CORPUSCULAR HGB CONC 29.3 g/dl (32.0-36.5); MEAN CORPUSCULAR VOLUME 91.5 fl (80.0-96.0); MONO # 0.5 10^3/uL (0.0-0.8); MONO % 5.9 % (2.0-8.0); NEUTROPHILS # 6.1 10^3/uL (1.5-8.5); RED BLOOD COUNT 3.66 10^6/uL (4.30-6.10); WHITE BLOOD COUNT 9.2 10^3/uL (4.0-10.0)
[2024-11-20 14:58] LABS: ERYTHROCYTE SEDIMENTATION RATE 60 mm/hr (0-20)
[2024-11-20 15:06] LABS: ALBUMIN 2.5 G/DL (3.2-5.2); ALKALINE PHOSPHATASE 117 U/L (40-129); ALT/SGPT 13 U/L (7.0-40); AST/SGOT 22 U/L (<34); BILIRUBIN,TOTAL 0.4 MG/DL (0.3-1.2); BLOOD UREA NITROGEN 16 MG/DL (9-23); C REACTIVE PROTEIN QUANTITATIV 3.64 MG/DL (<1.0); CALCIUM LEVEL 9.1 MG/DL (8.3-10.6); CARBON DIOXIDE LEVEL 26 MMOL/L (20-31); CHLORIDE LEVEL 104 MMOL/L (98-107); CREATININE FOR GFR 1.15 MG/DL (0.70-1.30); GLOMERULAR FILTRATION RATE > 60.0 (>42); GLUCOSE, FASTING 197 MG/DL (74-106); SODIUM LEVEL 142 MMOL/L (136-145); TOTAL PROTEIN 6.5 G/DL (5.7-8.2)
== END ==
LOC: M LAB REF 13:13
PROVIDERS: ATTEND Internal Medicine Infectious Disease
DX: T84.018A Broken internal joint prosthesis, other site, initial encounter (principal); T84.59XD Infection and inflammatory reaction due to other internal joint prosthesis, subsequent encounter; Z96.649 Presence of unspecified artificial hip joint

== ENCOUNTER → 2024-11-27 | Outpatient (REF) | payer MEDICARE, OTHER ==
[2024-11-27 15:44] LABS: BASO # 0.1 10^3/uL (0.0-0.2); BASO % 0.6 % (0.0-1.0); EOS # 0.2 10^3/uL (0.0-0.5); EOS % 2.6 % (0.0-3.0); HEMATOCRIT 34.1 % (42.0-52.0); LYMPH # 1.6 10^3/uL (1.5-5.0); LYMPH % 18.8 % (24.0-44.0); MEAN CORPUSCULAR HEMOGLOBIN 26.9 pg (27.0-33.0); MEAN CORPUSCULAR HGB CONC 29.3 g/dl (32.0-36.5); MEAN CORPUSCULAR VOLUME 91.7 fl (80.0-96.0); MONO # 0.7 10^3/uL (0.0-0.8); MONO % 7.9 % (2.0-8.0); NEUTROPHILS % 69.6 % (36.0-66.0); PLATELET COUNT, AUTOMATED 147 10^3/uL (150-450); RED BLOOD COUNT 3.72 10^6/uL (4.30-6.10); WHITE BLOOD COUNT 8.6 10^3/uL (4.0-10.0)
[2024-11-27 15:49] LABS: ERYTHROCYTE SEDIMENTATION RATE 74 mm/hr (0-20)
[2024-11-27 16:07] LABS: ALBUMIN 2.6 G/DL (3.2-5.2); ALKALINE PHOSPHATASE 116 U/L (40-129); ALT/SGPT 11 U/L (7.0-40); AST/SGOT 15 U/L (<34); BILIRUBIN,TOTAL 0.5 MG/DL (0.3-1.2); BLOOD UREA NITROGEN 21 MG/DL (9-23); C REACTIVE PROTEIN QUANTITATIV 7.52 MG/DL (<1.0); CALCIUM LEVEL 9.1 MG/DL (8.3-10.6); CARBON DIOXIDE LEVEL 27 MMOL/L (20-31); CHLORIDE LEVEL 105 MMOL/L (98-107); CREATININE FOR GFR 1.17 MG/DL (0.70-1.30); GLOMERULAR FILTRATION RATE > 60.0 (>42); GLUCOSE, FASTING 166 MG/DL (74-106); POTASSIUM SERUM 5.1 MMOL/L (3.5-5.1); SODIUM LEVEL 142 MMOL/L (136-145); TOTAL PROTEIN 6.7 G/DL (5.7-8.2)
== END ==
LOC: M LAB REF 14:15
PROVIDERS: ATTEND Internal Medicine Infectious Disease
DX: T84.018A Broken internal joint prosthesis, other site, initial encounter (principal); T84.59XD Infection and inflammatory reaction due to other internal joint prosthesis, subsequent encounter; Z96.649 Presence of unspecified artificial hip joint; T84.59XS Infection and inflammatory reaction due to other internal joint prosthesis, sequela; Y83.1 Surgical operation with implant of artificial internal device as the cause of abnormal reaction of the patient, or of later complication, without mention of misadventure at the time of the procedure

== ENCOUNTER → 2024-12-04 | Outpatient (REF) | payer MEDICARE, OTHER ==
[2024-12-04 14:37] LABS: BASO % 0.2 % (0.0-1.0); EOS % 0.1 % (0.0-3.0); HEMATOCRIT 34.4 % (42.0-52.0); HEMOGLOBIN 9.9 g/dl (13.5-17.5); LYMPH # 1.4 10^3/uL (1.5-5.0); LYMPH % 11.1 % (24.0-44.0); MEAN CORPUSCULAR HEMOGLOBIN 26.2 pg (27.0-33.0); MEAN CORPUSCULAR HGB CONC 28.8 g/dl (32.0-36.5); MONO # 0.6 10^3/uL (0.0-0.8); MONO % 4.4 % (2.0-8.0); NEUTROPHILS # 10.6 10^3/uL (1.5-8.5); PLATELET COUNT, AUTOMATED 165 10^3/uL (150-450); RED BLOOD COUNT 3.78 10^6/uL (4.30-6.10); WHITE BLOOD COUNT 12.9 10^3/uL (4.0-10.0)
[2024-12-04 14:53] LABS: ERYTHROCYTE SEDIMENTATION RATE 38 mm/hr (0-20)
[2024-12-04 15:04] LABS: ALKALINE PHOSPHATASE 97 U/L (40-129); ALT/SGPT 24 U/L (7.0-40); AST/SGOT 26 U/L (<34); BILIRUBIN,TOTAL 0.3 MG/DL (0.3-1.2); BLOOD UREA NITROGEN 32 MG/DL (9-23); C REACTIVE PROTEIN QUANTITATIV 0.66 MG/DL (<1.0); CALCIUM LEVEL 9.1 MG/DL (8.3-10.6); CARBON DIOXIDE LEVEL 27 MMOL/L (20-31); CHLORIDE LEVEL 103 MMOL/L (98-107); CREATININE FOR GFR 1.05 MG/DL (0.70-1.30); GLOMERULAR FILTRATION RATE > 60.0 (>42); GLUCOSE, FASTING 241 MG/DL (74-106); POTASSIUM SERUM 5.4 MMOL/L (3.5-5.1); SODIUM LEVEL 141 MMOL/L (136-145); TOTAL PROTEIN 6.8 G/DL (5.7-8.2)
== END ==
LOC: M LAB REF 13:15
PROVIDERS: ATTEND Internal Medicine Infectious Disease
DX: T84.018A Broken internal joint prosthesis, other site, initial encounter (principal); T84.59XD Infection and inflammatory reaction due to other internal joint prosthesis, subsequent encounter; Z96.649 Presence of unspecified artificial hip joint; T84.59XS Infection and inflammatory reaction due to other internal joint prosthesis, sequela; Y83.1 Surgical operation with implant of artificial internal device as the cause of abnormal reaction of the patient, or of later complication, without mention of misadventure at the time of the procedure

== ENCOUNTER → 2024-12-11 | Outpatient (REF) | payer MEDICARE, OTHER ==
[2024-12-11 14:34] LABS: BASO # 0.1 10^3/uL (0.0-0.2); BASO % 0.5 % (0.0-1.0); EOS # 0.3 10^3/uL (0.0-0.5); EOS % 3.6 % (0.0-3.0); HEMATOCRIT 36.1 % (42.0-52.0); HEMOGLOBIN 10.7 g/dl (13.5-17.5); LYMPH # 1.4 10^3/uL (1.5-5.0); LYMPH % 14.8 % (24.0-44.0); MEAN CORPUSCULAR HEMOGLOBIN 26.8 pg (27.0-33.0); MEAN CORPUSCULAR HGB CONC 29.6 g/dl (32.0-36.5); MEAN CORPUSCULAR VOLUME 90.5 fl (80.0-96.0); MONO # 0.7 10^3/uL (0.0-0.8); MONO % 7.3 % (2.0-8.0); NEUTROPHILS # 6.7 10^3/uL (1.5-8.5); NEUTROPHILS % 73.1 % (36.0-66.0); PLATELET COUNT, AUTOMATED 192 10^3/uL (150-450); RED BLOOD COUNT 3.99 10^6/uL (4.30-6.10); WHITE BLOOD COUNT 9.2 10^3/uL (4.0-10.0)
[2024-12-11 14:41] LABS: ERYTHROCYTE SEDIMENTATION RATE 65 mm/hr (0-20)
[2024-12-11 15:40] LABS: C REACTIVE PROTEIN QUANTITATIV 4.86 MG/DL (<1.0)
[2024-12-11 15:41] LABS: ALBUMIN 2.6 G/DL (3.2-5.2); ALKALINE PHOSPHATASE 106 U/L (40-129); ALT/SGPT 15 U/L (7.0-40); AST/SGOT 21 U/L (<34); BILIRUBIN,TOTAL 0.4 MG/DL (0.3-1.2); BLOOD UREA NITROGEN 19 MG/DL (9-23); CALCIUM LEVEL 8.8 MG/DL (8.3-10.6); CARBON DIOXIDE LEVEL 27 MMOL/L (20-31); CHLORIDE LEVEL 101 MMOL/L (98-107); CREATININE FOR GFR 1.16 MG/DL (0.70-1.30); GLOMERULAR FILTRATION RATE > 60.0 (>42); GLUCOSE, FASTING 269 MG/DL (74-106); SODIUM LEVEL 141 MMOL/L (136-145)
== END ==
LOC: M LAB REF 13:02
PROVIDERS: ATTEND Internal Medicine Infectious Disease
DX: T84.018A Broken internal joint prosthesis, other site, initial encounter (principal); T84.59XD Infection and inflammatory reaction due to other internal joint prosthesis, subsequent encounter; Z96.649 Presence of unspecified artificial hip joint

== ENCOUNTER → 2025-02-28 | Outpatient (REF) | payer MEDICARE, OTHER | LOC: M LAB REF 17:43 | PROVIDERS: ATTEND Internal Medicine | DX: I48.19 Other persistent atrial fibrillation (principal) ==

== ENCOUNTER → 2025-05-21 | Outpatient (REF) | payer MEDICARE, OTHER ==
[~2025-05-21] MED LIST changes: -PRAV40TA2 PO; +PRAV40TA85 PO
[2025-05-21 12:52] LABS: C REACTIVE PROTEIN QUANTITATIV 2.74 MG/DL (<1.0)
[2025-05-21 12:54] LABS: DIGOXIN LEVEL 0.5 NG/ML (0.8-2.0); TESTOSTERONE 111.0 NG/DL (241-827)
== END ==
LOC: M LAB REF 11:44
PROVIDERS: ATTEND Internal Medicine
DX: I48.19 Other persistent atrial fibrillation (principal); T84.52XA Infection and inflammatory reaction due to internal left hip prosthesis, initial encounter; R53.83 Other fatigue; Y83.1 Surgical operation with implant of artificial internal device as the cause of abnormal reaction of the patient, or of later complication, without mention of misadventure at the time of the procedure

== ENCOUNTER → 2025-06-25 | Outpatient (REF) | payer MEDICARE, OTHER | LOC: M LAB REF 17:29 | PROVIDERS: ATTEND Internal Medicine | DX: I10 Essential (primary) hypertension (principal); R53.83 Other fatigue ==